=== PATIENT | female | born 1970 | race Caucasian/White ===

== ENCOUNTER 2016-10-04 14:23 | Emergency (ER) | payer BC ==
[~2016-10-04] VITALS: Ht 165.1 cm; Wt 79.0 kg
[~2016-10-04 14:23] MED LIST: ASPI81TA28 PO; CINN1CAP2 PO; CYAN100020 PO; CYCL10TA6 PO; FLUO20CA35 PO; GLIP10TA10 PO; LISI2.5T5 PO; METF1000 PO; MTR800 PO; MULT1TAB22 PO; OMEG10007 PO; REPA1TAB42 PO; ULT50 PO; VTMD PO
[2016-10-04 14:30] VITALS: TEMP 36.7; Ht 165.1 cm; Wt 79.0 kg
[2016-10-04] MEDS ORDERED: FLUO40CA8 PO (15:57)
[2016-10-04] MEDS ORDERED: ONDANSETRON INJ 2 MG/ML 2 ML VIAL IV STA (15:57)
[2016-10-04] MEDS ORDERED: SODIUM CHLORIDE 0.9% 1000ML 2,000 ML IV STA (15:57)
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
--- NOTE | 2016-10-04 16:32 | DIAGNOSTIC IMAGING REPORT ---
CHEST ONE VIEW PORTABLE CLINICAL HISTORY: Chest pain, radiating to the abdomen. COMPARISON STUDY: May 2008 FINDINGS: The cardiac and mediastinal contours are normal. There is no evidence of focal pulmonary consolidation. There is no evidence of failure. No pleural effusions are visualized.[ There is no free intraperitoneal air. IMPRESSION: No active disease in the chest. Electronically signed by: Dorian Graham M.D. 10/04/2016 4:31 PM Dictated Date/Time: 10/04/2016 4:31 PM
[2016-10-04 16:46] LABS: BASO % 0.5 %; BASO ABS # 0.05 K/uL (0-0.2); COMPLETE YES; EOS % 1.6 %; HEMATOCRIT 45.8 % (37-47); IG% 0.2 %; LYMPH % 22.9 %; LYMPH ABS # 2.34 K/uL (1.2-3.4); MEAN CELL VOLUME 88.1 fL (80-100); MEAN CORPUSCULAR HGB CONC 35.2 g/dl (32-36); MEAN PLATELET VOLUME 9.5 fL (7.4-10.4); MONO % 5.4 %; NEUT % 69.4 %; PLATELET COUNT 279 K/uL (130-400)
[2016-10-04 16:54] LABS: VEN BLOOD GAS BASE EXCESS 1.3 mmol/L; VENOUS BLOOD GAS PCO2 44 mmHg (38.0-50.0); VENOUS BLOOD GAS PO2 29 mmHg
[2016-10-04 16:55] LABS: VEN BLD GAS O2 SATURATION < 60.0 %
[2016-10-04 17:22] LABS: BUN/CREATININE RATIO 20.2 (10-20); CALCIUM 9.8 mg/dl (8.5-10.1); CREATININE 0.53 mg/dl (0.60-1.20); MAGNESIUM 1.7 mg/dl (1.8-2.4); POTASSIUM 3.8 mmol/L (3.5-5.1)
[2016-10-04 17:25] LABS: PREG INTERNAL NEGATIVE QC NEG CLEAR BACKGROUND; PREG INTERNAL POSITIVE QC POS CONTROL LINE
[2016-10-04 17:26] LABS: BETA-HYDROXYBUTYRATE 2.51 mg/dL (0.2-2.81)
[2016-10-04 17:43] LABS: URINE APPEARANCE CLEAR (CLEAR); URINE BILIRUBIN NEG (NEG); URINE COLOR YELLOW; URINE NITRITE NEG (NEG); UROBILINOGEN NEG (NEG)
[2016-10-04 17:44] LABS: MANUAL MICROSCOPIC REQUIRED? NO; REVIEW REQ? NO
[2016-10-04 18:51] VITALS: BP 126/79; PULSE 99; O2SAT 99
[2016-10-05 06:37] LABS: ESTIMATED AVERAGE GLUCOSE 309 mg/dl; HA1C FLAG Normal (Normal)
== END 2016-10-04 18:53 | disposition home or self-care (01) ==
LOC: C.EDB 14:24 → C.EDA 18:53
DX: E86.0 Dehydration (principal); R73.9 Hyperglycemia, unspecified; E11.9 Type 2 diabetes mellitus without complications; I10 Essential (primary) hypertension; Z83.3 Family history of diabetes mellitus; Z82.49 Family history of ischemic heart disease and other diseases of the circulatory system; F17.200 Nicotine dependence, unspecified, uncomplicated; Z79.82 Long term (current) use of aspirin

== ENCOUNTER 2016-11-24 22:28 | Emergency (ER) | payer BC ==
[~2016-11-24] VITALS: Ht 165.1 cm; Wt 77.3 kg
[~2016-11-24 22:28] MED LIST changes: -FLUO20CA35 PO; +FLUO40CA8 PO; +REPA1TAB40 PO; -REPA1TAB42 PO
[2016-11-24 22:29] VITALS: TEMP 36.7; Ht 165.1 cm; Wt 77.3 kg
[2016-11-24] MEDS ORDERED: SODIUM CHLORIDE 0.9% 1000ML 1,000 ML IV STA ×2 (22:44)
[2016-11-24 22:53] VITALS: O2SAT 96
[2016-11-24 23:07] LABS: HEMATOCRIT 42.3 % (37-47); RED BLOOD COUNT 4.79 M/uL (4.2-5.4); WHITE BLOOD COUNT 8.32 K/uL (4.8-10.8)
[2016-11-24] MEDS ORDERED: INSDGI SQ (23:07)
[2016-11-24] MEDS ORDERED: ERGO500037 PO (23:07)
[2016-11-24] MEDS ORDERED: INSDGI SC (23:07)
[2016-11-24 23:08] LABS: BASO % 0.5 %; BASO ABS # 0.04 K/uL (0-0.2); COMPLETE YES; EOS % 1.8 %; IG% 0.2 %; LYMPH % 35.7 %; LYMPH ABS # 2.97 K/uL (1.2-3.4); MEAN CELL VOLUME 88.3 fL (80-100); MEAN CORPUSCULAR HEMOGLOBIN 30.9 pg (25-34); MEAN PLATELET VOLUME 9.2 fL (7.4-10.4); MONO % 7.2 %; NEUT % 54.6 %; PLATELET COUNT 261 K/uL (130-400)
[2016-11-24 23:14] LABS: URINE APPEARANCE CLEAR (CLEAR); URINE BILIRUBIN NEG (NEG); URINE COLOR YELLOW; URINE NITRITE NEG (NEG); URINE PH 5.5 (4.5-7.5); URINE SPECIFIC GRAVITY 1.042 (1.000-1.030); UROBILINOGEN NEG (NEG); ZZUR CULT IF INDIC CLEAN CATCH NO
[2016-11-24 23:19] LABS: MANUAL MICROSCOPIC REQUIRED? NO; REVIEW REQ? NO
[2016-11-24 23:49] LABS: ALKALINE PHOSPHATASE 82 U/L (45-117); ALT/SGPT 24 U/L (12-78); AST/SGOT 13 U/L (15-37); BLOOD UREA NITROGEN 14 mg/dl (7-18); CARBON DIOXIDE 24 mmol/L (21-32); CHLORIDE 102 mmol/L (98-107); CREATININE 0.65 mg/dl (0.60-1.20); GLUCOSE 372 mg/dl (70-99); POTASSIUM 3.9 mmol/L (3.5-5.1); SODIUM 136 mmol/L (136-145)
[2016-11-24] MEDS ORDERED: NovoLIN-R INSULIN PER UNIT CHARGE IV STA (23:55)
[2016-11-24 23:59] LABS: BETA-HYDROXYBUTYRATE 2.98 mg/dL (0.2-2.81); CALCIUM 9.5 mg/dl (8.5-10.1)
--- NOTE | 2016-11-25 03:16 | EMERGENCY ROOM VISIT NOTE ---
History First contact with patient: 22:34 Chief Complaint: HYPERGLYCEMIA Stated Complaint: SUGAR IN 300'S, VOMITING, DIZZY Nursing Triage Summary: pt ambulatory to B9. states she has been sick on and off since may with "different infections." reports she was recently on prednisone but has been off for 10 days. states she has type 2 DM and began with insulin approx 2 months ago. states her sugars have been high recently and today reports over 300. states she took her regular 10units of lantus at 09:30 and called pcp and was told to take an extra 5units approx 10:30. pt co feeling shakey and nausea/vomiting and cold. pt alert and oriented x4. lungs clear in all cloud History of Present Illness The patient is a 46 year old female who presents to the Emergency Room with complaints of fatigue, lightheadedness and elevated blood sugars the past few days. She called her family care doctor was advised to go the ER. Patient also hit her head yesterday and had a headache and feeling lightheaded since. Patient denies loss of consciousness, neck pain, facial pain, dental pain, vision problems, flulike illness, chest pain, dyspnea, fever, chills, cough, congestion, abdominal pain, vomiting, diarrhea. Patient states throughout the years she's had intermittent tingling to her extremities. No family history of MS. No visual complaints. Review of Systems See HPI for pertinent positives & negatives. A total of 10 systems reviewed and were otherwise negative. Past Medical/Surgical History Medical Problems: (1) DIAB TIFFANY WO COMPL, TYPE II OR UNSPEC TYPE, NOT UNCNTRLD (2) HYPERTENSION NOS Family History Cancer Diabetes mellitus Heart disease Hypertension Social History Smoking Status: Current Every Day Smoker Alcohol Use: none Drug Use: none Marital Status: single Housing Status: lives alone Occupation Status: employed Current/Historical Medications Scheduled Aspirin (Aspirin Ec), 81 MG PO DAILY Cinnamon (Cinnamon), 1,000 MG PO DAILY Cyanocobalamin (Vitamin B12), 1 TAB PO DAILY Ergocalciferol (Vitamin D 18349 Unit), 50,000 UNIT PO WK Fish Oil ([place]-3), 4 CAP PO DAILY Fluoxetine (Prozac), 40 MG PO HS Insulin Glargine (Lantus), 10 UNITS SC QAM Insulin Glargine (Lantus), 5 UNITS SQ TODAY Lisinopril (Lisinopril), 2.5 MG PO DAILY Metformin Hcl (Glucophage), 1,000 MG PO BIDM Multiple Vitamins W/ Minerals (One Daily For Women), 1 TABLET PO DAILY Repaglinide (Prandin), 1 MG PO QID Scheduled PRN Cyclobenzaprine Hcl (Flexeril), 10 MG PO HS PRN for Muscle Spasm Ibuprofen (Ibuprofen), 800 MG PO Q8 PRN for Pain Tramadol HCl (Tramadol HCl), 50-100 MG PO Q6H PRN for Pain Allergies Coded Allergies: Penicillins (Unverified Allergy, Intermediate, RASH, 11/24/16) BEE STING (Unverified Allergy, Unknown, swelling and difficulty breathing , 11/24/16) Physical Exam Vital Signs Date Time Temp Pulse Resp B/P Pulse Ox O2 Delivery O2 Flow Rate FiO2 11/25/16 02:50 83 18 103/58 95 Room Air 11/25/16 00:56 89 18 106/72 96 Room Air 11/24/16 23:50 80 18 113/73 93 Room Air 11/24/16 23:02 89 11/24/16 22:53 96 Room Air 11/24/16 22:53 96 Room Air 11/24/16 22:29 36.7 99 18 125/82 99 Room Air Physical Exam VITALS: Vitals are noted on the nurse's note and reviewed by myself. Vital signs stable. GENERAL: Pleasant female, in no acute distress, nondiaphoretic, well-developed well-nourished. SKIN: The skin was without rashes, erythema, edema, or bruising. There is no tenting of the skin. Capillary reflex less than 2 seconds. HEAD: Normocephalic atraumatic. EARS: External auditory canals clear, tympanic membranes pearly brown without erythema or effusion bilaterally. EYES: Pupils equal round and reactive to light and accommodation. Conjunctivae without injection, sclerae without icterus. Extraocular movements intact. NOSE: Patent, turbinates without inflammation or discharge. MOUTH: Mucous membranes moist. Pharynx without erythema or exudate. Uvula midline. Airway patent. Tongue does not deviate. NECK: Supple without nuchal rigidity. No lymphadenopathy. No thyromegaly. Cervical spine is nontender. No JVD. HEART: Regular rate and rhythm without murmurs gallops or rubs. LUNGS: Clear to auscultation bilaterally without wheezes, rales or rhonchi. No dullness to percussion. No retractions or accessory muscle use. ABDOMEN: Positive bowel sounds x 4. Normal tympanic percussion. Soft, nontender, without masses or organomegaly. Rivera sign negative. No guarding or rebound tenderness. MUSCULOSKELETAL: No muscle atrophy, erythema, or edema noted. NEURO: Patient was alert and oriented to person place and time. Normal sensation to light and sharp touch. No focal neurological deficits. Cranial nerves II through XII grossly intact. No pronator drift. Cerebellar exam intact. GCS is 15 Medical Decision & Procedures Laboratory Results 11/24/16 22:55 Red Blood Count 4.79, Mean Corpuscular Volume 88.3, Mean Corpuscular Hemoglobin 30.9, Mean Corpuscular Hemoglobin Concent 35.0, Mean Platelet Volume 9.2, Neutrophils (%) (Auto) 54.6, Lymphocytes (%) (Auto) 35.7, Monocytes (%) (Auto) 7.2, Eosinophils (%) (Auto) 1.8, Basophils (%) (Auto) 0.5, Neutrophils # (Auto) 4.54, Lymphocytes # (Auto) 2.97, Monocytes # (Auto) 0.60, Eosinophils # (Auto) 0.15, Basophils # (Auto) 0.04 11/24/16 22:55 Test 11/24/16 22:54 11/24/16 22:55 11/24/16 22:59 11/25/16 00:41 Urine Color YELLOW Urine Appearance CLEAR (CLEAR) Urine pH 5.5 (4.5-7.5) Urine Specific [place] 1.042 (1.000-1.030) Urine Protein NEG (NEG) Urine Glucose (UA) 3+ (NEG) Urine Ketones TRACE (NEG) Urine Occult Blood NEG (NEG) Urine Nitrite NEG (NEG) Urine Bilirubin NEG (NEG) Urine Urobilinogen NEG (NEG) Urine Leukocyte Esterase NEG (NEG) White Blood Count 8.32 K/uL (4.8-10.8) Red Blood Count 4.79 M/uL (4.2-5.4) Hemoglobin 14.8 g/dL (12.0-16.0) Hematocrit 42.3 % (37-47) Mean Corpuscular Volume 88.3 fL (80-100) Mean Corpuscular Hemoglobin 30.9 pg (25-34) Mean Corpuscular Hemoglobin Concent 35.0 g/dl (32-36) Platelet Count 261 K/uL (130-400) Mean Platelet Volume 9.2 fL (7.4-10.4) Neutrophils (%) (Auto) 54.6 % Lymphocytes (%) (Auto) 35.7 % Monocytes (%) (Auto) 7.2 % Eosinophils (%) (Auto) 1.8 % Basophils (%) (Auto) 0.5 % Neutrophils # (Auto) 4.54 K/uL (1.4-6.5) Lymphocytes # (Auto) 2.97 K/uL (1.2-3.4) Monocytes # (Auto) 0.60 K/uL (0.11-0.59) Eosinophils # (Auto) 0.15 K/uL (0-0.5) Basophils # (Auto) 0.04 K/uL (0-0.2) RDW Standard Deviation 40.3 fL (36.4-46.3) RDW Coefficient of Variation 12.5 % (11.5-14.5) Immature Granulocyte % (Auto) 0.2 % Immature Granulocyte # (Auto) 0.02 K/uL (0.00-0.02) Anion Gap 10.0 mmol/L (3-11) Est Creatinine Clear Calc Drug Dose 110.0 ml/min Estimated GFR () 122.5 Estimated GFR (Non- 105.7 BUN/Creatinine Ratio 22.0 (10-20) Calcium Level 9.5 mg/dl (8.5-10.1) Total Bilirubin 0.3 mg/dl (0.2-1) Direct Bilirubin mg/dl (0-0.2) Aspartate Amino Transf (AST/SGOT) 13 U/L (15-37) Alanine Aminotransferase (ALT/SGPT) 24 U/L (12-78) Alkaline Phosphatase 82 U/L (45-117) Total Protein 7.0 gm/dl (6.4-8.2) Albumin 3.8 gm/dl (3.4-5.0) Beta-Hydroxybutyric Acid 2.98 mg/dL (0.2-2.81) Chemistry Specimen Hemolysis Bedside Troponin I 0.000 ng/ml (0-0.045) Bedside Glucose 206 mg/dl (70-90) Medications Administered Medications (Trade) Dose Ordered Sig/Remberto Route Start Time Stop Time Status Last Admin Dose Admin Sodium Chloride 1,000 ml @ 999 mls/hr Q1H1M STAT IV 11/24/16 22:44 11/24/16 23:44 DC 11/24/16 23:00 999 MLS/HR Sodium Chloride (Nss 1000ml) 1,000 ml @ 125 mls/hr Q8H STAT IV 11/24/16 22:44 11/25/16 06:43 11/24/16 23:50 125 MLS/HR Insulin Human Regular (novoLIN-R U-100 PER UNIT) 10 units NOW STAT IV 11/24/16 23:55 11/24/16 23:56 DC 11/25/16 00:08 10 UNITS ED Course Prior records/ancillary studies reviewed and summarized above. Nursing notes reviewed. Additional history obtained from family. The patient's history was concerning for hyperglycemia, tingling, lightheadedness, dizziness and headache injury. Differential diagnosis: Etiologies such as metabolic, infection, MS, hypo/hyperglycemia, electrolyte abnormalities, cardiac sources, intracerebral event, toxicologic, neurologic, as well as others were entertained. Physical examination: As above. ER treatment provided: IV Lock IV fluids, insulin On reassessment the patient felt better. Diagnostics interpretation by me: ECG: Normal sinus, normal intervals, no acute ST-T wave changes. Impression normal sinus rhythm interpreted by myself The labs revealed hyperglycemia without DKA. Negative troponin Imaging studies: Chest x-ray with no acute consolidation, pneumothorax or free air per my interpretation Head CT was read by stat radiology and shows remote-appearing right frontoparietal infarct, patchy nonspecific white matter low attenuation MRI HEAD : No evidence of acute infarct. Right parietal encephalomalacia and gliosis, compatible with remote infarct. Cortical T2/FLAIR hyperintensity abnormality at the posterior aspect of the right sylvian fissure , also likely related to remote infarct Mild scattered T2/FLAIR white matter hyperintensities, nonspecific but most commonly related to chronic small vessel ischemic changes. No evidence of intracranial hemorrhage or mass. No abnormal parenchymal or leptomeningeal enhancement. Mild mucosal thickening left frontal sinus, ethmoid air cells, and right maxillary sinus Radiologist: Kofi Cadena MD Exam and history seem consistent with hyperglycemia without DKA with head injury and intermittent tingling. Patient has had a history of remote infarct and is unaware of this. Patient's blood sugar did come down after being medicated as above. She is advised to monitor her blood sugars and to follow- up family care in a few days or here in the ER sooner for high blood sugars, chest pain, confusion, weakness, worsening signs or symptoms or as needed. Patient was neurovascularly and neurologically intact. No sources of infection to explain her hyperglycemia. She was recently no on prednisone. This could be the contributing factor. By the evaluation outlined above emergent etiologies such as infection, electrolyte abnormalities, cardiac sources, intracerebral event, toxologic, neurologic, metabolic, as well as others were deemed relatively unlikely. The pt informed about the findings as listed above. All questions were answered and pleased with the treatment. Return instructions were outlined and the patient was discharged in stable condition. Referral: The patient was referred back to primary care physician for follow-up in 2 to 3 days for a recheck of the current condition. case reviewed with my Attending Medical Decision As above Impression Primary Impression: Hyperglycemia due to type 2 diabetes mellitus Additional Impressions: Head injury Tingling Lightheadedness Departure Information Dispostion Home / Self-Care Condition GOOD Referrals Corina Yusuf D.O. (PCP) Patient Instructions My [facility] Additional Instructions Read head injury handout and return for any symptoms. Tylenol 1000 mg as needed for pain (Maximum 3000 mg Tylenol in 24 hr period). Avoid alcohol and contact sports/activities for one week and follow up with family doctor prior to returning to these activities if still symptomatic. Ice and elevate head. If your symptoms persist more than a week then follow up with the concussion clinic. Call [phone]. Return to ER sooner for headache, fevers, confusion, chest pain, abdominal pain , worsening signs or symptoms or as needed. Monitor your blood sugars. It was high today. Follow-up family care in 2-3 days. Call for appointment. 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
[2016-11-25 03:39] VITALS: BP 110/58; PULSE 82; O2SAT 96
[2016-11-25] MEDS ORDERED: GADAVIST IV PRN (03:45)
--- NOTE | 2016-11-25 06:26 | DIAGNOSTIC IMAGING REPORT ---
CT HEAD WITHOUT CONTRAST (CT) CLINICAL HISTORY: Dizziness. Head trauma. COMPARISON STUDY: 05/17/2013 TECHNIQUE: Axial CT of the brain is performed from the vertex to the skull base. IV contrast was not administered for this examination. CT DOSE: 537.48 mGy.cm FINDINGS: No intra or extra-axial mass lesions are visualized. There is no CT evidence of acute cortical infarction. There is no evidence of midline shift. There is no acute hemorrhage. No calvarial fractures are visualized. Since the prior study, the patient has developed a right frontoparietal infarct. This does not appear acute. There are subtle white matter hypodensities, likely on a small vessel basis. There is no evidence of pathologic ventricular dilatation. There is no evidence of acute sinusitis IMPRESSION: 1. No acute intracranial findings 2. Interval development of a right frontoparietal infarct Electronically signed by: Dorian Graham M.D. 11/25/2016 6:25 AM Dictated Date/Time: 11/25/2016 6:23 AM
--- NOTE | 2016-11-25 06:36 | DIAGNOSTIC IMAGING REPORT ---
CHEST ONE VIEW PORTABLE CLINICAL HISTORY: Atypical chest pain COMPARISON STUDY: 10/04/2016 FINDINGS: The cardiac and mediastinal contours are normal. There is no evidence of focal pulmonary consolidation. There is no evidence of failure. No pleural effusions are visualized.[ IMPRESSION: No active disease in the chest. Electronically signed by: Dorian Graham M.D. 11/25/2016 6:35 AM Dictated Date/Time: 11/25/2016 6:35 AM
--- NOTE | 2016-11-25 06:44 | DIAGNOSTIC IMAGING REPORT ---
Brain MRI WITH AND WITHOUT CONTRAST HISTORY: Mental status change dizzy, [place], abn CT, intermittent numbness to extremities, ? MS TECHNIQUE: Multiplanar multisequence MRI of the brain was performed both before and after the intravenous administration of contrast. COMPARISON STUDY: None. FINDINGS: There are no areas of restricted diffusion to suggest acute infarction. The midline structures are intact. The paranasal sinuses are clear. The mastoid air cells are clear. The ventricles and sulci are within normal limits for age. There is no mass, hematoma, midline shift. The major vascular flow-voids at the skull base are well maintained. Postcontrast sequences show no areas of abnormal enhancement. Old right parietal infarct. Minimal chronic small vessel change. IMPRESSION: 1. Old right parietal infarct. 2. Minimal chronic small vessel change. 3. Otherwise negative study Electronically signed by: Mikael Apple M.D. 11/25/2016 6:43 AM Dictated Date/Time: 11/25/2016 6:41 AM
== END 2016-11-25 03:39 | disposition home or self-care (01) ==
LOC: C.EDB 22:29
DX: E11.65 Type 2 diabetes mellitus with hyperglycemia (principal); S09.90XA Unspecified injury of head, initial encounter; W22.8XXA Striking against or struck by other objects, initial encounter; R20.2 Paresthesia of skin; R42 Dizziness and giddiness; I10 Essential (primary) hypertension; F17.200 Nicotine dependence, unspecified, uncomplicated; Z79.82 Long term (current) use of aspirin; Z79.4 Long term (current) use of insulin; Z79.899 Other long term (current) drug therapy; Z88.0 Allergy status to penicillin; Z91.030 Bee allergy status; Z80.9 Family history of malignant neoplasm, unspecified; Z83.3 Family history of diabetes mellitus; Z82.49 Family history of ischemic heart disease and other diseases of the circulatory system

== ENCOUNTER 2019-01-13 22:24 | Inpatient (IN) ==
[2019-01-13 23:08] LABS: Basophils # (auto) 0.05 K/uL (0-0.2); Basophils % (auto) 0.5 %; Hematocrit (blood only) 41.7 % (37-47); Hemoglobin 14.6 g/dL (12.0-16.0); Immature Granulocytes # (auto) 0.01 K/uL (0.00-0.02); Immature Granulocytes % (auto) 0.1 %; Lymphocytes # (auto) 3.15 K/uL (1.2-3.4); Lymphocytes % (auto) 32.2 %; Mean Corpuscular Volume 87.8 fL (80-100); Mean Platelet Volume 9.6 fL (7.4-10.4); Monocytes # (auto) 0.63 K/uL (0.11-0.59); Monocytes % (auto) 6.4 %; Neutrophils # (auto) 5.75 K/uL (1.4-6.5); Neutrophils % (auto) 58.8 %; Platelet Count 279 K/uL (130-400); RDW Standard Deviation 38.4 fL (36.4-46.3); Red Blood Count 4.75 M/uL (4.2-5.4); White Blood Count 9.79 K/uL (4.8-10.8)
[2019-01-13 23:11] LABS: Pregnancy Test, Serum Negative (Negative)
[2019-01-13 23:41] LABS: D Dimer 620 ug/L FEU (0-500)
[2019-01-13 23:56] LABS: Alanine Aminotransferase 26 U/L (12-78); Albumin Globulin Ratio 1.1 (0.9-2); Albumin Level 3.7 gm/dl (3.4-5.0); Alkaline Phosphatase 91 U/L (45-117); Aspartate Aminotransferase 9 U/L (15-37); BUN Creatinine Ratio 18.5 (10-20); Bilirubin,Total 0.3 mg/dl (0.2-1); Blood Urea Nitrogen 14 mg/dl (7-18); Calcium 9.1 mg/dl (8.5-10.1); Carbon Dioxide 28 mmol/L (21-32); Chloride 102 mmol/L (98-107); Creatinine Clr Calc Pharmacy 95.3 ml/min; Est GFR (African American) 106.8; Est GFR (Non-African American) 92.1; Globulin 3.5 gm/dl (2.5-4.0); Glucose 473 mg/dl (70-99); Potassium 3.9 mmol/L (3.5-5.1); Sodium 136 mmol/L (136-145); Total Protein 7.2 gm/dl (6.4-8.2); Troponin I < 0.015 ng/ml (0-0.045)
[2019-01-14 00:32] LABS: Beta-Hydroxybutyrate 1.48 mg/dl (0.2-2.81)
[2019-01-14] MEDS ORDERED: NovoLIN-R INSULIN PER UNIT CHARGE IV STA (00:39)
[2019-01-14] MEDS ORDERED: SODIUM CHLORIDE 0.9% 1000ML 500 ML IV ONE (00:39)
[2019-01-14] MEDS ORDERED: OPTIRAY 320 125ml IV PRN (00:40)
[2019-01-14] MEDS ORDERED: ASPIRIN CHEW 324 MG PO STA (01:48)
--- NOTE | 2019-01-14 03:35 | Emergency Department Note ---
Entered by Serina Khan acting as a scribe for Filiberto Holt MD ED Provider Note CHIEF COMPLAINT: Chest pain HISTORY OF PRESENT ILLNESS: The patient is a 48 year old female who presents to the Emergency Room with complaints of constant chest pain that started 4 days ago. The patient reports she started noticing back and chest pain 4 days ago. She notes she was walking through [facility] today with her and had to stop because she could not breathe. The patient [facility] but currently rates it as 1. Pt denies LOC, headache, fevers, chills, diaphoresis, visual changes, neck pain, breathing difficulties, nausea, vomiting, abdominal pain, melena, hematochezia, urinary symptoms, numbness, weakness, lymphadenopathy, rash, or other complaints. REVIEW OF SYSTEMS: See HPI for pertinent positives and negatives. A total of ten systems were reviewed and were otherwise negative. PMHx/PSHx: Cardiomyopathy Cerebrovascular disease CVA Smoker Hyperlipidemia Elevated troponin SOCIAL HISTORY: Patient lives at home. PHYSICAL EXAM: GENERAL: Awake, alert, well-appearing, in no distress HENT: Normocephalic, atraumatic. Oropharynx unremarkable. EYES: PERRL. Normal conjunctiva. Sclera non-icteric. NECK: Inspection normal. Non-tender. Supple. No nuchal rigidity. FROM. No masses. RESPIRATORY: Clear to auscultation. No wheezes. No rales. Normal respiratory effort. CARDIAC: Borderline tachycardic rate. Normal rhythm. No murmurs. No rubs. Extremities warm and well perfused. Pulses equal. No JVD. GI: Soft, non-distended. No tenderness to palpation. No rebound or guarding. No masses. RECTAL: Deferred. MUSCULOSKELETAL: Atraumatic. Chest examination reveals mild sternal tenderness. The back is symmetrical on inspection without obvious abnormality. There is no CVA tenderness to palpation. No joint edema. LOWER EXTREMITIES: Calves are equal size bilaterally and non-tender. No edema. No discoloration. NEURO: Normal sensorium. No sensory or motor deficits noted. SKIN: No rash or jaundice noted. EMERGENCY DEPARTMENT COURSE: 2355: Past medical records reviewed. The patient was evaluated in room B7, and a complete history and physical examination were performed. 0133: I checked on the patient. The patient is stable and is doing well. Her blood sugar is 284. I will discuss the patient's case with Dr. Butts about chest pain rule out. 0154: I discussed the patients case with Beckie. The patient is admitted. MEDICAL DECISION MAKING: Prior records/ancillary studies reviewed. Patient had prior elevations of troponin. She has diagnosis of diabetes and a cardiomyopathy. Triage Nursing notes reviewed and agree them. The patient's history was concerning for chest pain. Differential diagnosis: Etiologies such as cardiac ischemia, aortic dissection, pulmonary embolism, pneumonia, pneumothorax, musculoskeletal, infections, pericarditis, myocarditis, esophageal rupture, gastrointestinal, as well as others were entertained. Physical examination: As above. ER treatment provided: Saline hydration IV insulin Patient declined analgesia as she noted her discomfort was a 1. On reassessment the patient felt better. Oral aspirin Diagnostic interpretation by me: The electrocardiogram was negative for pathologic change. The labs revealed an unremarkable CBC and chemistry panel. LFTs and lipase negative. D-dimer was performed and was positive. CT imaging performed. Troponin negative. Imaging studies: CT scan of the chest did not reveal any acute findings. Chest x-ray negative. The patient has had chest pain fluctuating for the last 3 days. She had significant chest pain this evening that actually caused her to stop her activi ty. She was short of breath with it. She does not have any evidence of thromboembolic disease. She had a previous admission last fall that discovered an elevated troponin and decreased EF. She was presumed to have coronary disease. She did not have a catheterization. Consultation: A consultation was placed with the hospitalist. The case was discussed and diagnostics were reviewed. The patient was evaluated in the ER for further treatment. IMPRESSION: Substernal chest pain Hyperglycemia PLAN: Admit The scribe's documentation has been prepared under my direction and personally reviewed by me in its entirety. I confirm that the note above accurately reflects all work, treatment, procedures, and medical decision making performed by me. Impression & Plan Substernal chest pain, Hyperglycemia Past Med/Surg History Medical History Cardiomyopathy Cerebrovascular disease CVA (cerebral vascular accident) Smoker Hyperlipidemia Hyperglycemia due to type 2 diabetes mellitus (Acute) Elevated troponin (Acute) Work related injury (Acute) Weakness of both arms (Acute) Concussion (Acute) Diabetes Family History Other Diabetes Social History Preferred Language: Pashto Communication Ability: Effective Beliefs That Will Affect Care: None Current Living Situation: Family Current Living Situation Comment: WITH SON Feels Safe at Home: Yes Smoking Status: Current every day smoker Tobacco Type: cigarettes Cigarettes Per Day: 8-9 Hx Alcohol Use: No Hx Substance Use: No Results & Data Vital Signs Vital Signs - 24 hr 01/13/19 22:27 01/13/19 22:45 01/13/19 22:56 Temperature 36.4 C L Temperature Source Oral Sepsis Recent Fever Within 48 Hours No Sepsis New/Unexplained Change in Mental Status No Sepsis Action Taken by Nursing No Action Required Pulse Rate 107 H 101 H 102 H Pulse Rate from SpO2 Sensor 101 H 100 H Respiratory Rate 24 21 20 Blood Pressure 137/84 136/79 Blood Pressure Mean 101 98 Blood Pressure Position Sitting Pulse Oximetry 99 96 95 Oxygen Delivery Method Room Air 01/13/19 23:00 01/13/19 23:55 01/14/19 00:35 Temperature Temperature Source Sepsis Recent Fever Within 48 Hours Sepsis New/Unexplained Change in Mental Status Sepsis Action Taken by Nursing Pulse Rate 101 H 96 H Pulse Rate from SpO2 Sensor 99 H 103 H Respiratory Rate 21 15 Blood Pressure Blood Pressure Mean Blood Pressure Position Pulse Oximetry 95 96 Oxygen Delivery Method 01/14/19 00:36 01/14/19 01:00 01/14/19 01:30 Temperature Temperature Source Sepsis Recent Fever Within 48 Hours Sepsis New/Unexplained Change in Mental Status Sepsis Action Taken by Nursing Pulse Rate 99 H 89 96 H Pulse Rate from SpO2 Sensor 96 H 89 Respiratory Rate 20 18 21 Blood Pressure 117/77 106/80 Blood Pressure Mean 90 88 Blood Pressure Position Pulse Oximetry 96 96 Oxygen Delivery Method 01/14/19 02:00 01/14/19 02:04 01/14/19 02:30 Temperature Temperature Source Sepsis Recent Fever Within 48 Hours Sepsis New/Unexplained Change in Mental Status Sepsis Action Taken by Nursing Pulse Rate 95 H 98 H 103 H Pulse Rate from SpO2 Sensor 94 H 105 H Respiratory Rate 19 24 18 Blood Pressure 116/64 Blood Pressure Mean 81 Blood Pressure Position Pulse Oximetry 96 94 Oxygen Delivery Method 01/14/19 02:31 Temperature Temperature Source Sepsis Recent Fever Within 48 Hours Sepsis New/Unexplained Change in Mental Status Sepsis Action Taken by Nursing Pulse Rate 96 H Pulse Rate from SpO2 Sensor 95 H Respiratory Rate 18 Blood Pressure 134/104 H Blood Pressure Mean 114 Blood Pressure Position Pulse Oximetry 95 Oxygen Delivery Method Home Medications Current Medication List: was personally reviewed by me Laboratory Data Attestation: I reviewed the patient's lab results. Result diagrams: 01/13/19 22:45 01/13/19 22:45 Lab Results 01/13/19 01/13/19 01/13/19 Range/Units 22:45 22:45 22:45 WBC 9.79 (4.8-10.8) K/uL RBC 4.75 (4.2-5.4) M/uL Hgb 14.6 (12.0-16.0) g/dL Hct 41.7 (37-47) % MCV 87.8 (80-100) fL MCH 30.7 (25-34) pg MCHC 35.0 (32-36) g/dL RDW Std Deviation 38.4 (36.4-46.3) fL RDW Coeff of Brea 12.0 (11.5-14.5) % Plt Count 279 (130-400) K/uL MPV 9.6 (7.4-10.4) fL Immature Gran % (Auto) 0.1 % Neut % (Auto) 58.8 % Lymph % (Auto) 32.2 % Howard % (Auto) 6.4 % Eos % (Auto) 2.0 % Baso % (Auto) 0.5 % Immature Gran # (Auto) 0.01 (0.00-0.02) K/uL Neut # (Auto) 5.75 (1.4-6.5) K/uL Lymph # (Auto) 3.15 (1.2-3.4) K/uL Howard # (Auto) 0.63 H (0.11-0.59) K/uL Eos # (Auto) 0.20 (0-0.5) K/uL Baso # (Auto) 0.05 (0-0.2) K/uL D-Dimer 620 H* (0-500) ug/L FEU Sodium 136 (136-145) mmol/L Potassium 3.9 (3.5-5.1) mmol/L Chloride 102 (98-107) mmol/L Carbon Dioxide 28 (21-32) mmol/L Anion Gap 6.0 (3-11) BUN 14 (7-18) mg/dl Creatinine 0.76 (0.6-1.2) mg/dl Est Cr Clr Drug Dosing 95.3 ml/min Est GFR ( Amer) 106.8 Est GFR (Non-Af Amer) 92.1 BUN/Creatinine Ratio 18.5 (10-20) Glucose 473 H* (70-99) mg/dl POC Glucose (70-99) Calcium 9.1 (8.5-10.1) mg/dl Total Bilirubin 0.3 (0.2-1) mg/dl AST 9 L (15-37) U/L ALT 26 (12-78) U/L Alkaline Phosphatase 91 (45-117) U/L Troponin I < 0.015 (0-0.045) ng/ml Total Protein 7.2 (6.4-8.2) gm/dl Albumin 3.7 (3.4-5.0) gm/dl Globulin 3.5 (2.5-4.0) gm/dl Albumin/Globulin Ratio 1.1 (0.9-2) Lipase 89 (73-393) U/L Beta-Hydroxybutyric Acd 1.48 (0.2-2.81) mg/dl HCG, Qual (Negative) 01/13/19 01/14/19 Range/Units 22:45 01:43 WBC (4.8-10.8) K/uL RBC (4.2-5.4) M/uL Hgb (12.0-16.0) g/dL Hct (37-47) % MCV (80-100) fL MCH (25-34) pg MCHC (32-36) g/dL RDW Std Deviation (36.4-46.3) fL RDW Coeff of Brea (11.5-14.5) % Plt Count (130-400) K/uL MPV (7.4-10.4) fL Immature Gran % (Auto) % Neut % (Auto) % Lymph % (Auto) % Howard % (Auto) % Eos % (Auto) % Baso % (Auto) % Immature Gran # (Auto) (0.00-0.02) K/uL Neut # (Auto) (1.4-6.5) K/uL Lymph # (Auto) (1.2-3.4) K/uL Howard # (Auto) (0.11-0.59) K/uL Eos # (Auto) (0-0.5) K/uL Baso # (Auto) (0-0.2) K/uL D-Dimer (0-500) ug/L FEU Sodium (136-145) mmol/L Potassium (3.5-5.1) mmol/L Chloride (98-107) mmol/L Carbon Dioxide (21-32) mmol/L Anion Gap (3-11) BUN (7-18) mg/dl Creatinine (0.6-1.2) mg/dl Est Cr Clr Drug Dosing ml/min Est GFR ( Amer) Est GFR (Non-Af Amer) BUN/Creatinine Ratio (10-20) Glucose (70-99) mg/dl POC Glucose 284 H (70-99) Calcium (8.5-10.1) mg/dl Total Bilirubin (0.2-1) mg/dl AST (15-37) U/L ALT (12-78) U/L Alkaline Phosphatase (45-117) U/L Troponin I (0-0.045) ng/ml Total Protein (6.4-8.2) gm/dl Albumin (3.4-5.0) gm/dl Globulin (2.5-4.0) gm/dl Albumin/Globulin Ratio (0.9-2) Lipase (73-393) U/L Beta-Hydroxybutyric Acd (0.2-2.81) mg/dl HCG, Qual Negative (Negative) Administered Medications Ioversol (Optiray 320 125ml) 125 ml IV ONCE PRN PRN Reason: Interaction Checking Stop: 01/18/19 00:39 Last Admin: 01/14/19 00:40 Dose: 82 ml Documented by: [id number] Discontinued Medications Aspirin (Aspirin) 324 mg PO NOW STA Stop: 01/14/19 01:49 Last Admin: 01/14/19 02:04 Dose: 324 mg Documented by: [id number] Sodium Chloride (Nss 1000ml) 500 mls @ 999 mls/hr IV .Q31M ONE Stop: 01/14/19 01:09 Last Infusion: 01/14/19 01:45 Dose: 0 mls/hr Documented by: [id number] Admin: 01/14/19 00:55 Dose: 999 mls/hr Documented by: [id number] Insulin Human Regular (Novolin R U-100 Per Unit) 10 units IV NOW STA Stop: 01/14/19 00:40 Last Admin: 01/14/19 00:54 Dose: 10 units Documented by: [id number] Cosigned by: [id number] Imaging Data Radiologist's Impression: Radiology results as stated below per my review and the radiologist's interpretation: CTA CHEST: No evidence of pulmonary emboli. No arotic dissection or aneurysm. Scattered coronary artery calcifications. Linear streaky opacity in the right middle lobe and lingula probably represent scarring or atelectasis. No pleural effusion or pneumothorax. 4 mm subpleural nodule in the right middle lobe is nonspecific. Recommend correlation with risk factors and previous studies and consider follow-up based on Fleischner criteria. Hypodense nodule measuring 2.3 cm in the left adrenal gland probably represents a lipid rich adrenal adenoma. Radiologist: Shaan Enriquez MD Study ready at 00:30 and initiral results transmitted at 01:09 ECG Data Attestation: I personally reviewed and interpreted this ECG as follows: Indication: chest pain Rate (beats per minute): 105 Rhythm: sinus tachycardia Findings: no PAC, no PVC, no ST depression and no ST elevation Blood Pressure Blood Pressure Findings: Normal blood pressure Blood Pressure Disposition: did not require urgent referral Discharge Plan Visit Data Chief Complaint: Chest Pain Stated Complaint: CHEST PAIN ED Provider: Filiberto Holt Discharge Problem: Substernal chest pain, Hyperglycemia Patient Disposition: Being Evaluated by Hospitalist Forms Stand Alone Forms: Call Back Authorization, [facility] Prescriptions Prescriptions: No Action ibuprofen 200 mg Tablet 1,000 mg PO Q6H PRN (Reason: Pain) RF: 0 ergocalciferol (vitamin D2) [Vitamin D2] 50,000 unit capsule 50,000 unit PO WK RF: 0 aspirin [Aspir-81] 81 mg Tablet,Delayed Release (Dr/Ec) 81 mg PO QAM RF: 0 metformin 1,000 mg Tablet 1,000 mg PO BIDM RF: 0 cinnamon bark [Cinnamon] 500 mg Capsule 1,000 mg PO QAM RF: 0 One Daily For Women 18-0.4 mg Tablet 1 tab PO DAILY RF: 0 omega [id number]-fish oil [Fish Oil] 1,000 mg (120 mg-180 mg) Capsule 1,000 mg PO DAILY RF: 0 atorvastatin 40 mg Tablet 40 mg PO QAM Qty: 30 RF: 2 lisinopril 2.5 mg Tablet 2.5 mg PO QAM Qty: 30 RF: 1 metoprolol tartrate 25 mg Tablet 25 mg PO BID Qty: 60 RF: 1 Lantus Solostar U-100 Insulin 100 unit/mL (3 mL) Insulin Pen 40 unit SC DAILY Qty: 1 RF: 2 Referrals Referrals: Marisela Bonilla, [Primary Care Provider] - The scribe's documentation has been prepared under my direction and personally reviewed by me in its entirety. I confirm that the note above accurately reflects all work, treatment, procedures, and medical decision making performed by me.
[2019-01-14] MEDS ORDERED: ACETAMINOPHEN 325 MG TAB PO PRN (04:47)
[2019-01-14] MEDS ORDERED: ONDANSETRON INJ 2 MG/ML 2 ML VIAL IV PRN (04:47)
[2019-01-14] MEDS ORDERED: NITROGLYCERIN SL 0.4 MG/TAB TAB SL PRN (04:47)
[2019-01-14] MEDS: SODIUM CHLORIDE 0.9% 1000ML 1,000 ML IV SCH ×2 (04:54→16:09)
[2019-01-14] MEDS ORDERED: PHARMACY GLYCEMIC MGMT CONSULT PRN (04:55)
[2019-01-14] MEDS ORDERED: DEXTROSE 50% 50 ML SYRINGE IV PRN (05:30)
[2019-01-14] MEDS ORDERED: GLUCOSE 40% GEL 15 GM TUBE PO PRN (05:30)
[2019-01-14] MEDS ORDERED: GLUCAGON FOR INJ 1 MG VIAL IM PRN (05:30)
[2019-01-14] MEDS ORDERED: CARBOHYDRATES FOR HYPOGLYCEMIA PO PRN (05:30)
[2019-01-14] MEDS ORDERED: GLUCOSE 10 TABS/TUBE PO PRN (05:30)
[2019-01-14] MEDS: INSULIN ASPART 100 UNITS/ML 3 ML PEN SC SCH ×4 (05:49→20:58)
--- NOTE | 2019-01-14 06:32 | XRay Report ---
XR chest 1V portable HISTORY: 48 years-old Female Chest Pain acute atypical chest pain COMPARISON: Chest radiograph 05/10/2018, CTA chest 01/14/2019 TECHNIQUE: Portable AP view of the chest FINDINGS: Cardiomediastinal and hilar silhouettes are within normal limits. There is no pneumothorax, pleural e ffusion, lobar airspace consolidation or overt pulmonary edema. Minimal linear subsegmental bibasilar atelectasis. Bones of the chest appear grossly intact. IMPRESSION: No acute process. The above report was generated using voice recognition software. It may contain grammatical, syntax o r spelling errors. Electronically signed by: Michael Gutierrez M.D. 01/14/2019 6:30 AM
[2019-01-14] MEDS ORDERED: INSULIN ASPART 100 UNITS/ML 3 ML PEN SC ONE (06:45)
[2019-01-14 07:38] LABS: BUN Creatinine Ratio 22.2 (10-20); Calcium 8.6 mg/dl (8.5-10.1); Creatinine Clr Calc Pharmacy 138.1 ml/min; Est GFR (African American) 131.7; Est GFR (Non-African American) 113.7; Magnesium 1.6 mg/dl (1.8-2.4); Potassium 3.6 mmol/L (3.5-5.1); Troponin I 0.114 ng/ml (0-0.045)
[2019-01-14 07:52] LABS: Beta-Hydroxybutyrate 1.09 mg/dl (0.2-2.81)
--- NOTE | 2019-01-14 08:10 | CT Scan Report ---
CHEST CTA for PULMONARY ARTERIES CT DOSE: 500.46 mGy.cm HISTORY: Atypical chest pain, eval for PE, +dimer TECHNIQUE: Multiaxial CT images of the chest were performed following the intravenous administration of contrast to evaluate the pulmonary arteries. Maximal intensity projection images were also obtaine d. A dose lowering technique was utilized adhering to the principles of ALARA. COMPARISON STUDY: Chest 01/13/2019. FINDINGS: There is 2 cm left adrenal gland nodule. This favors a benign adenoma. The visualized liver and spleen are unremarkable. There is a 2 cm left thyroid nodule. Normal esophagus. No mediastinal o r hilar lymphadenopathy. The heart is normal in size. No pleural or pericardial effusions. No fractur es within the visualized osseous structures. No pneumothorax. The central airways are patent. Linear densities within the right upper lobe and lingula favor subsegmental atelectasis or scarring. There i s a 4 mm subpleural nodule within the right middle lobe on image 93. Normal caliber thoracic aorta wi th no evidence for dissection. No filling defects within the pulmonary arteries to suggest pulmonary embolus. IMPRESSION: 1. No evidence for pulmonary embolus. 2. A 4 mm subpleural nodule within the right middle lobe. Please refer to the chart below for recomme nded follow-up. 3. A 2 cm left adrenal gland nodule which is consistent with a benign adenoma. 3. A 2 cm left thyroid nodule. Please refer to below summary of Fleischner criteria recommendations for follow-up of incidental CT n odules (Campos Guerrero, Guidelines for management of small pulmonary nodules detected on CT scans: A sta tement from the Fleischner Society, Radiology 237: [phone].) SOLID NODULES Solitary nodule size: <6 mm * Low risk patients: no follow-up needed * high risk patients: optional CT at 12 months Solitary nodule size: 6-8 mm * Low risk patients: follow-up at 6-12 months, then consider further follow-up at 18-24 months * high risk patients: initial follow-up CT at 6-12 months and then at 18-24 months if no change Solitary nodule size: >8 mm * either low or high risk patients - consider follow-up CT at 3 months, and/or CT-PET, and/or biopsy Multiple nodules size: <6 mm * Low risk patients: no routine follow-up * high risk patients: optional CT at 12 months Multiple nodules size: 6-8 mm * Low risk patients: follow-up at 3-6 months, then consider further follow-up at 18-24 months * high risk patients: follow-up at 3-6 months, then at 18-24 months if no change Multiple nodules size: >8 mm * Low risk patients: follow-up at 3-6 months, then consider further follow-up at 18-24 months * high risk patients: follow-up at 3-6 months, then at 18-24 months if no change Note: newly detected indeterminate nodule in persons 35 years of age or older. * Low risk patients: minimal or absent history of smoking and/or other known risk factors * high risk patients: history of smoking or of other known risk factors (e.g. first degree relative with lung cancer, or exposure to asbestos, radon, uranium) * if a nodule up to 8 mm is partly solid or is ground glass further follow-up is required after 24 m onths to exclude possible slow growing adenocarcinoma (LENORA) SUBSOLID NODULES Solitary pure ground-glass nodule * nodule size <6 mm - no CT follow-up required * nodule size >=6 mm - follow-up CT at 6-12 months, then every 2 years until 5 years Solitary part-solid nodule * nodule size <6 mm - no CT follow-up required * nodule size >=6 mm - follow-up CT at 3-6 months. If unchanged, and solid component remains <6 mm, then annual follow-up for 5 years Multiple subsolid nodules * nodule size <6 mm - follow-up CT at 3-6 months, consider further follow-up at 2 and 4 years if sta ble * nodule size >=6 mm - follow-up CT at 3-6 months, subsequent management based on the most suspiciou s nodule(s) Electronically signed by: Abdi Hopkins M.D. 01/14/2019 8:08 AM
--- NOTE | 2019-01-14 08:39 | History and Physical Report ---
DATE OF ADMISSION: 01/14/2019 CHIEF COMPLAINT: Chest pain. HISTORY OF PRESENT ILLNESS: This is a 48-year-old female with past medical history significant for diabetes, hyperlipidemia, history of stroke, history of concussion who presents with chest pain. The patient has been having chest pain on and off for the last 2 days. Yesterday evening, she went to [employer] and she suddenly started having severe chest pain and shortness of breath. She had to lay down and it lasted for about 10-15 minutes and subsided and was brought into the ER. Currently, pain is minimal, pressure like feeling. During this, she was feeling dizzy, but no sweating, no nausea, no vomiting. Currently has some headache, no blurred vision, no earache, no runny nose, no sore throat, no difficulty swallowing. Appetite is okay. She ate dinner outside at a [employer] and not surprised sugars running high, which she says also running high at home. She is taking her diabetes medication regularly.Denies any belly pain. Normal bowel and bladder movements. No hematuria, no burning micturition, no black stools or blood in the stools. No swelling in the legs. No rash. Currently resting comfortably and hemodynamically stable. ALLERGIES: BEE VENOM, PENICILLINS. PAST MEDICAL HISTORY: As mentioned above. PAST SURGICAL HISTORY: Dental surgery, tonsillectomy. MEDICATIONS: The patient is on aspirin 81 mg p.o. daily, atorvastatin 40 mg p.o. daily, cinnamon bark, vitamin D, ibuprofen p.r.n., insulin glargine 40 units daily, lisinopril 2.5 mg p.o. q.a.m., metformin 1000 mg p.o. b.i.d., metoprolol 25 mg p.o. b.i.d. FAMILY HISTORY: Significant for father has hypertension. Mother has diabetes. Paternal grandfather has heart transplant. Maternal aunt has breast cancer. Paternal grandmother has breast cancer. SOCIAL HISTORY: Quit smoking in 2010. Alcohol occasional. No drug use. REVIEW OF SYMPTOMS: As per HPI. Rest of review of systems is negative. PHYSICAL EXAMINATION: GENERAL: The patient is of moderate build, not in acute distress. VITAL SIGNS: Temperature 36.4, pulse 96, respiratory rate 18, blood pressure 134/104, oxygen 95% on room air. HEENT: No pallor, no icterus. Pupils equal, round, and reactive to light. NECK: No JVD, no neck masses, no carotid bruit. CARDIOVASCULAR: S1, S2, regular rate and rhythm, no murmur, no gallop. RESPIRATORY SYSTEM: Normal AP diameter. No accessory muscle use. No wheezing, no crackles. ABDOMEN: Soft, bowel sounds present. Nontender. No distention. CENTRAL NERVOUS SYSTEM: Cranial nerves II-XII grossly intact. Nonfocal. EXTREMITIES: No edema, no erythema. LABORATORIES: WBC is 9.7, hemoglobin 14.6, hematocrit 41.7, platelets 279. D-dimer 620. Sodium 136, potassium 3.9, chloride 102, bicarb 28, BUN 14, creatinine 0.7, serum glucose 473, calcium 9.1, total bilirubin 0.3, AST 9, ALT 26, alkaline phosphatase 91. Troponin I less than 0.015. Lipase 89. Beta hydroxybutyric acid 1.4. HCG negative. Chest x-ray, no acute disease seen. CTA of the chest done, unofficial report unremarkable. ELECTROCARDIOGRAM: Sinus tachycardia at a rate of 105. Nonspecific ST changes seen. ASSESSMENT AND PLAN: This is a 48-year-old female who presents with chest pain. 1. Chest pain, currently improved without any nitroglycerin, going on for the last 2 days on and off. Initial workup is negative. We will observe in telemetry floor. Serial cardiac enzymes, echocardiogram, repeat EKG. Will follow official reort of CTA chest. Keep n.p.o. until seen by cardiology in the morning. 2. Diabetes, poorly controlled. Hyperglycemia. Received a dose of IV insulin in the Emergency Room. Since the patient is n.p.o., we will cut back on Lantus to [address] on insulin sliding scale. Hold metformin. Consult glycemic pharmacy. Follow hemoglobin A1c levels. 4. Hyperlipidemia. Continue statin. Follow lipid profile. 5. Hypertension, on lisinopril and Lopressor. We will monitor the blood pressure. 6. History of cerebrovascular accident, on statin and aspirin.No residual weakness. 7. History of chronic systolic congestive heart failure with ejection fraction of 40% on last echocardiogram in 2018., not on any diuretics. We will follow a repeat echocardiogram. 8.Dvt Prophylaxis Scds. 9. Disposition: Observe in telemetry floor. Expect to discharge home and follow with family doctor. Level 1 full code. MTDD
[2019-01-14] MEDS ORDERED: METOPROLOL TARTRATE 25 MG TAB PO SCH (09:00)
[2019-01-14] MEDS ORDERED: INSULIN GLARGINE SOLOSTAR 100 UNITS/ML 3 ML PEN SC SCH ×2 (09:00)
--- NOTE | 2019-01-14 09:00 | Pharmacy Report ---
Glycemic Control Consultation - Date of Service January 14, 2019 - Scope Scope: Glycemic Pharmacist consulted by Dr Butts on 01/14 for glycemic control and to write orders per [facility] inpatient glycemic control protocol - Objective Weight: 82.1 kg Accuchecks BSG (last 24hrs): 01/13/19 01/14/19 01/14/19 22:45 01:43 05:35 Glucose 473 H* POC Glucose 284 H 348 H* 01/14/19 06:50 Glucose 311 H* POC Glucose Laboratory Data (last 24hrs): 01/13/19 01/14/19 22:45 06:50 Potassium 3.9 3.6 Carbon Dioxide 28 26 Anion Gap 6.0 5.0 Creatinine 0.76 0.50 L Est Cr Clr Drug Dosing 95.3 138.1 Beta-Hydroxybutyric Acd 1.48 1.09 - Recent Pertinent Medications Outpatient Anti-diabetic Regimen: * Basaglar 40 units daily * Metformin 1 gm BID * A1c = 13.2 % 05/10/18; updated one currently pending The patient has received: * 10 unit IV insulin bolus @ 0000 for BSG of 473 mg/dL on arrival * Novolog 7 units + 4 units @ 0600 for BSG of 348 mg/dL (to equal CF of 20 mg/dL/unit) Risk Factors for Insulin Resistance: * Baseline uncontrolled diabetes * Diet: NPO - Assessment & Plan Assessment & Plan: ASSESSMENT: * 48 y/o female admitted overnight for chest pain. She has a history of poorly controlled type 2 diabetes, managed with basal insulin + metformin as an outpatient. BSG significantly elevated on admission - was provided an IV insulin bolus as noted above. Lantus 30 units + Novolog with CF/CR parameters based on insulin calc estimates for wt/stress of 2 was initiated on admission. * Patient went for a cardiac cath and post-procedure BSG is significantly improved (186 mg/dL) * Will plan to slightly loosen CF now that BSGs are improved. Carb ratio may eventually need loosened but will continue for now. PLAN FOR INPATIENT GLYCEMIC CONTROL: * Hold outpatient oral diabetes medications * Basal insulin * Lantus 30 units SQ qAM * Bolus insulin - loosen CF * NovoLog per scale ACHS or Q6hrs while NPO * Goal Range: Low 110 mg/dL - High 140 mg/dL * Correction Factor: 25 mg/dL/unit * Nutritional / Prandial insulin per carb ratio of 1 unit per 7 grams CHO consumed Discharge Recommendations: * Will be provided once updated A1c available Thank you.
[2019-01-14 09:41] LABS: Estimated Average Glucose 289 mg/dl; Hemoglobin A1C 11.7 % (4.5-5.6)
[2019-01-14] MEDS ORDERED: MIDAZOLAM HCL 1 MG/ML 2ML VIAL ONE (11:02)
[2019-01-14] MEDS ORDERED: HEPARIN (PORCINE) 1000 UNIT/ML 10 ML (CATH LAB USE ONLY) ONE (11:02)
[2019-01-14] MEDS ORDERED: fentaNYL citrate 100 MCG/2 ML VIAL ONE (11:02)
[2019-01-14] MEDS ORDERED: NITROGLYCERIN/D5W 100MCG/ML 20ML SYR ONE (11:03)
[2019-01-14] MEDS ORDERED: NiCARDipine HCL INJ 2.5 MG/ML 10 ML AMP ONE (11:03)
--- NOTE | 2019-01-14 11:23 | Consultation Report ---
DATE OF CONSULTATION: 01/14/2019 INPATIENT CARDIOLOGY CONSULTATION CONSULTATION REQUESTED BY: Dr. Butts. REASON FOR CONSULTATION: Chest pain. HISTORY OF PRESENT ILLNESS: Ms. Hutton is a very pleasant 48-year-old woman who normally follows with myself as an outpatient. She presented to [facility] late in the evening of 01/13/2019 with complaints of worsening chest pain. The patient states that approximately 4 days prior to presentation, she notes that whenever she climbed a set of steps or walking up an inclined plane, she developed chest discomfort. She states that it was a pressure sensation that felt as though someone was pushing on her chest and it involved her entire precordium. She also felt the pressure at the same time across her shoulder blades. This would be associated with significant shortness of breath and having to stop whatever activity she was doing. She states that after a few minutes of rest, the shortness of breath and discomfort would slowly resolve. She denied any other associated symptoms of diaphoresis, nausea, palpitations, lightheadedness, dizziness, or syncope. She states that this did persist for 4 days, again recurring with any activity, never occurring at rest. 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 She was simply walking through the halls and she had to stop and felt as though she was going to collapse because the discomfort was so severe. Again, she had severe pressure across her precordium and between her shoulder blades associated with severe shortness of breath. At that time, her son brought her into the Emergency Department. Upon arrival, she was symptom free. Initial workup was unremarkable and she was admitted to telemetry. On telemetry, she did have a short fay of nonsustained ventricular tachycardia and second troponin came back above laboratory standards at 0.1. Currently, she is pain-free at rest. She states that she has been taking all of her medications as an outpatient and has not had any significant medical issues as of late. PAST SURGICAL HISTORY: 1. Tonsillectomy. 2. Dental surgery. MEDICAL ILLNESSES: 1. History of nonischemic cardiomyopathy, resolved with nonischemic Lexiscan nuclear stress test. 2. Diabetes. 4. History of CVA. 5. Dyslipidemia. 6. Strong family history of premature coronary artery disease. FAMILY HISTORY: Remarkable for mother who developed coronary artery disease and had her first stent placed in her late 40s with same age of the patient. SOCIAL HISTORY: The patient is a lifelong smoker, but has been smoke-free for several months now after being on Chantix. Drinks occasional alcohol. Denies any recreational drug use. She is not . She lives at home with her son who has special needs. She is currently employed with [employer] in [employer]. REVIEW OF SYSTEMS: As per HPI, all other review of systems reviewed and negative at this time. ALLERGIES: PENICILLINS. MEDICATIONS AN OUTPATIENT: 1. Aspirin 81 mg daily. 2. Lisinopril 2.5 mg daily. 3. Metoprolol succinate 25 mg daily. 4. Atorvastatin 40 mg daily. 5. Chantix. 6. Fish oil. 7. Metformin b.i.d. PHYSICAL EXAMINATION: VITALS: Temperature 36.6, pulse 90, respiratory rate 12, blood pressure 125/81. GENERAL: Awake, alert, oriented x3 in no acute distress. HEENT: Normocephalic, atraumatic. Pupils equal, round, reactive to light and accommodation. Extraocular muscles intact. Anicteric sclerae. Moist mucous membranes. NECK: No JVD, no bruit. CARDIOVASCULAR: Regular. Positive S4. Normal S1 and S2. No S3. No murmurs or rubs. PULMONARY: Clear to auscultation bilaterally. No rales, rhonchi, or wheezing. ABDOMEN: Bowel sounds x4, soft. No rebound, guarding, tenderness. No organomegaly. EXTREMITIES: No clubbing, cyanosis or edema. +2 pedal pulses bilaterally. SKIN: Warm and dry. TEST RESULTS: A 12-lead EKG performed in the Emergency Department independently reviewed at this time shows sinus tachycardia at 105 beats per minute, normal axis, normal intervals, low voltage, no significant ischemic changes. A 2D echocardiogram was read as normal LV chamber size with mild concentric LVH, normal LV systolic function, EF 55-60%, no segmental wall motion abnormalities are noted, grade 1 diastolic dysfunction, no significant valvular pathology, normal left atrial size. LABORATORY STUDIES OF SIGNIFICANCE: Initial troponin of 0, followup of 0.1. Review of telemetry monitoring shows 7-beat run of nonsustained ventricular tachycardia. IMPRESSION: 1. Chest pain suspicious for unstable angina. 2. Hypertension. 3. Dyslipidemia. 4. Diabetes. 5. Strong family history of coronary artery disease. 6. Tobacco abuse. RECOMMENDATIONS: It was my pleasure to see Ms. Hutton consultation today. From a cardiac standpoint, given her ongoing symptoms along with her multiple risk factors for coronary artery disease, I believe the most prudent course of action at this point will be to proceed with cardiac catheterization for direct visualization of her coronary anatomy. So the patient will be taken to the cardiac catheterization lab today and further recommendations to follow. The patient is in agreement with the above plan.
--- NOTE | 2019-01-14 11:36 | Cardiology Consultation ---
Date of Consultation January 14, 2019 Assessment & Plan (1) Elevated troponin: Patient with progressive exertional chest pain concerning for ACS in the setting of multiple ASCVD risk factors. Agree with need for additional risk stratification. No apparent contraindications to catheterization. Discussed risk, benefits, alternatives of cardiac catheterization with patient and she is willing to proceed. Plan to perform via right radial artery Further recommendations pending findings. History of Present Illness Attending Physician: Filiberto Mcnamara MD History of Present Illness Ms. Hutton is a very pleasant 48-year-old woman with a history of diabetes, hyperlipidemia, prior CVA admitted in the setting of progressive exertional chest pain and found to have a mildly elevated troponin. Interventional cardiology consulted for cardiac catheterization. Patient seen today by Dr. Pratt with [facility] cardiology who recommended catheterization. Patient's cardiac history remarkable for transient mild cardiomyopathy April 2018. This occurred in the setting of concussion and significant social stress. Outpatient stress test at that time negative for ischemia. Patient is an active smoker, she has a family history of premature coronary artery disease with mother having stents in her 40s. Currently chest pain-free. Initial troponin 0.11, EKG unremarkable. Allergies Allergy/AdvReac Type Severity Reaction Status Date / Time bee venom protein (honey bee) Allergy Severe swelling Verified 01/13/19 22:56 and difficulty breathing Penicillins Allergy Intermediate RASH Verified 01/13/19 22:56 Home Medications Home Medications Medication Instructions Recorded Confirmed Type One Daily For Women 1 tab PO DAILY 05/10/18 01/13/19 History aspirin [Aspir-81] 81 mg PO QAM 05/10/18 01/13/19 History cinnamon bark [Cinnamon] 1,000 mg PO QAM 05/10/18 01/13/19 History metformin 1,000 mg PO BIDM 05/10/18 01/13/19 History omega 4-[id number]-mkc-fish oil [Fish Oil] 1,000 mg PO DAILY 05/10/18 01/13/19 History atorvastatin 40 mg PO QAM #30 tab 05/12/18 01/13/19 Rx insulin glargine [Lantus Solostar 40 unit SC DAILY #1 box 05/12/18 01/13/19 Rx U-100 Insulin] lisinopril 2.5 mg PO QAM #30 tab 05/12/18 01/13/19 Rx metoprolol tartrate 25 mg PO BID #60 tab 05/12/18 01/13/19 Rx ergocalciferol (vitamin D2) 50,000 unit PO WK 01/13/19 01/13/19 History [Vitamin D2] ibuprofen 1,000 mg PO Q6H PRN 01/13/19 01/13/19 History Patient History Medical History Cardiomyopathy Cerebrovascular disease CVA (cerebral vascular accident) Smoker Hyperlipidemia Hyperglycemia due to type 2 diabetes mellitus (Acute) Elevated troponin (Acute) Work related injury (Acute) Weakness of both arms (Acute) Concussion (Acute) Diabetes Family History Other Diabetes Social History Preferred Language: Mauritian Communication 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: Effective 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 Beliefs That Will Affect Care: None Current Living Situation: Family Current Living Situation Comment: son Other Information That Helps Us Care for You: No Feels Safe at Home: Yes Safety Concerns: Feels Safe At This Time Smoking Status: Current every day smoker Tobacco Type: cigarettes Cigarettes Per Day: 8-9 Do You Dip or Chew Tobacco: No Hx Alcohol Use: No Hx Substance Use: No Review of Systems Review of Systems: All systems reviewed & are unremarkable except as noted in HPI & below Physical Exam Physical Exam: General: Comfortable, no acute distress HEENT: Sclerae anicteric, mucous membranes moist Lungs: Clear to auscultation bilaterally, no rhonchi or wheezes Cardiac: Regular rate and rhythm, no murmurs. No JVD. Abdomen: Soft, nontender, nondistended, positive bowel sounds. Extremities: Warm, well perfused, no edema. 2+ radial pulses Skin: No rashes or lesions. Neuro: Nonfocal Psych: Alert orient x3, normal affect and mood Results & Data Vital Signs (Past 12 Hours) Vital Signs Temp Pulse Pulse Resp BP BP Pulse Ox 01/14/19 08:02 90 01/14/19 07:42 36.6 C 88 18 125/81 93 01/14/19 04:52 36.8 C 95 H 18 128/84 96 01/14/19 02:31 96 H 18 134/104 H 95 01/14/19 02:30 103 H 18 94 01/14/19 02:04 98 H 24 116/64 96 01/14/19 02:00 95 H 19 01/14/19 01:30 96 H 21 01/14/19 01:00 89 18 106/80 96 01/14/19 00:36 99 H 20 117/77 96 01/14/19 00:35 96 H 15 01/13/19 23:55 96
--- NOTE | 2019-01-14 11:37 | Pre Anesthesia Assessment ---
Date of Service January 14, 2019 Pre Sedation Assessment Vital Signs Temp Pulse Pulse Resp BP BP Pulse Ox 01/14/19 08:02 90 01/14/19 07:42 36.6 C 88 18 125/81 93 01/14/19 04:52 36.8 C 95 H 18 128/84 96 01/14/19 02:31 96 H 18 134/104 H 95 01/14/19 02:30 103 H 18 94 01/14/19 02:04 98 H 24 116/64 96 01/14/19 02:00 95 H 19 01/14/19 01:30 96 H 21 01/14/19 01:00 89 18 106/80 96 01/14/19 00:36 99 H 20 117/77 96 01/14/19 00:35 96 H 15 01/13/19 23:55 96 01/13/19 23:00 101 H 21 95 01/13/19 22:56 102 H 20 95 01/13/19 22:45 101 H 21 136/79 96 01/13/19 22:27 36.4 C L 107 H 24 137/84 99 Cardiovascular RRR, no murmur, no edema Respiratory normal respiratory effort, lungs clear to auscultation Pre-Sedation Airway Assessment Smoking Status: Current every day smoker Hx Sleep Apnea: No Hx Difficult Intubation: No Short, Thick Neck: No Thyromental Distance: > or= 3.5 Finger Breadths Oral Cavity: + WNL Mallampati Class: III Procedure Planning Contraindications for Sedation: none Current Medications Reviewed: Yes Notes The planned sedation has been discussed with the patient. Informed Consent was obtained. I have identified the patient, determined the appropriateness of sedation and have assessed the patient immediately prior to the procedure. All medicine(s) and interventions are by my order.
--- NOTE | 2019-01-14 12:04 | Post Anesthesia Assessment ---
Date of Service January 14, 2019 Post Sedation Assessment Vital Signs Temp Pulse Pulse Resp BP BP Pulse Ox 01/14/19 08:02 90 01/14/19 07:42 36.6 C 88 18 125/81 93 01/14/19 04:52 36.8 C 95 H 18 128/84 96 01/14/19 02:31 96 H 18 134/104 H 95 01/14/19 02:30 103 H 18 94 01/14/19 02:04 98 H 24 116/64 96 01/14/19 02:00 95 H 19 01/14/19 01:30 96 H 21 01/14/19 01:00 89 18 106/80 96 01/14/19 00:36 99 H 20 117/77 96 01/14/19 00:35 96 H 15 01/13/19 23:55 96 01/13/19 23:00 101 H 21 95 01/13/19 22:56 102 H 20 95 01/13/19 22:45 101 H 21 136/79 96 01/13/19 22:27 36.4 C L 107 H 24 137/84 99 Recovery Score Activity: Moves 4 extremities Respiration: Deep Breath/Cough Circulation: +/-20% PreAnes Value Consciousness: Fully Awake Oxygen Saturation: O2 needed for >90% Discharge Sedation Level of Care: Fast Track Phase II Post Sedation Plan On clinical assessment, the patient appears to have tolerated the sedation without complications. Patient is recovering as anticipated. Patient will continue to be monitored by nursing and may be discharged when sedation discharge criteria are met per below protocol. Upon Completions of procedure and additional 15 minutes continue every 5 minute vital signs and the P.A.R. score; then discharge to a Phase I or Fast Track to Phase II per the following guidelines: * Discharge Patient to appropriate Phase II area if PAR is 8 or greater or return to pre- procedure baseline. The post - procedure orders will be as directed. * If PAR score is less than 8 or not return to pre-procedure baseline then patient will follow Phase I monitoring till PAR is reached for Phase II. The Phase I may be done in procedure room or may call to secure a Phase I area. * If naloxone or flumazenil are used for reversal, hold in Phase I for continued monitoring from when last reversal dose was given for a minimum of 60 minutes or longer pending the nurse and/or physician discretion of patient condition before discharge to Phase II. Please call the Sedation Physician to re-evaluate and complete post-note for discharge to Phase II area. Do NOT discharge from procedure sedation or Phase 1 until post- sedation evaluation note is complete by procedure /sedation MD Sedation Discharge Instructions to be given to the patient at discharge to home.
--- NOTE | 2019-01-14 12:15 | Cardiac Catheterization ---
Cardiac Cath Procedure Full Procedure Date January 14, 2019 Pre-Procedure Diagnosis Pre-Procedure Diagnosis: Non STEMI AUC Score AUC Score: 7 Post-Procedure Diagnosis Post-Procedure Diagnosis: Severe CAD and Normal Intracardiac Pressures Procedure(s) Performed Procedure(s) Performed: Coronary Angiography and Left Heart Cath Truck Loader And Unloader Yosi Solano MD Cytogenetics Technologist(s) Glunt Estimated Blood Loss Estimated Blood Loss: 5 Medication(s) Medication(s): Fentanyl, Heparin, Lidocaine 1%, Nicardipine, Nitroglycerin and Versed Summary of Findings Indication: Suspected ACS Access: 6 Fr slender right radial artery Catheters: [place] Findings: LM -luminal irregularities LAD -moderate caliber, 40% proximal disease, severe diffuse mid to distal disease up to 80%. Distal vessel wraps around apex. Gives off one large diagonal and mid segment with 70 to 80% proximal stenosis Circumflex -moderate caliber vessel, 60% proximal, mild mid segment disease, small OM1 with subtotal occlusion in the mid segment. OM 3 small, occluded proximally and fills faintly via left to left collaterals distally. RCA -large caliber vessel, dominant, 60 to 70% mid to distal stenosis, 40% distal prior to takeoff of right PDA. PDA moderate caliber, angulated with mild to moderate diffuse disease. Moderate caliber right PLB with mild to moderate diffuse disease. Provides right to left collaterals to LAD, small occluded OM's. LVEDP -6 Arterial Closure: TR band Summary: 1. Severe multivessel coronary artery disease -Severe diffuse mid LAD disease, up to 80%. 70 to 80% proximal first diagonal 60% proximal circumflex. Occluded very small OM1, OM 3 60 to 70% mid to distal RCA, provides right to left collaterals to small occluded OM's 2. Normal intracardiac filling pressure Recommendations: In the setting of insulin dependent diabetes recommend cardiac surgery evaluation for CABG Continued ASCVD risk factor modification and maximize antianginal therapy Findings discussed with Dr. Pratt. 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
[2019-01-14] MEDS ORDERED: SODIUM CHLORIDE 0.9% 1000ML 1,000 ML IV SCH (12:25)
--- NOTE | 2019-01-14 15:22 | Cardiology Progress Note ---
Date of Service January 14, 2019 Assessment & Plan (1) CAD (coronary artery disease): cardiac cath revealed multivessel disease with underlying small, diabetic arteries will need CT surgery eval as outpatient, my office will arrange pain free now will optimize medical regimen to hopefully prevent recurrent angina metoprolol changed to succinate imdur added may add amlodipine if bp tolerates pt agrees with plan remain on tele overnight Results & Data Vital Signs (Past 12 Hours) Vital Signs Temp Pulse Pulse Pulse Resp BP Pulse Ox 01/14/19 15:15 83 01/14/19 14:48 89 128/91 01/14/19 14:00 92 H 16 116/61 98 01/14/19 13:30 86 16 121/76 97 01/14/19 13:00 91 H 16 110/69 96 01/14/19 12:45 89 16 144/65 H 96 01/14/19 12:30 36.7 C 79 16 133/81 98 01/14/19 08:02 90 01/14/19 07:42 36.6 C 88 18 125/81 93 01/14/19 04:52 36.8 C 95 H 18 128/84 96
[2019-01-14] MEDS: ASPIRIN 81 MG ECTAB PO SCH (15:43)
[2019-01-14] MEDS: ATORVASTATIN 40 MG TAB PO SCH (15:44)
[2019-01-14] MEDS: MULTIVITAMIN TAB PO SCH (15:44)
[2019-01-14] MEDS: LISINOPRIL 2.5 MG TAB PO SCH (15:44)
[2019-01-14] MEDS: ISOSORBIDE MONO EXTENDED REL 30 MG TABCR PO SCH (15:45)
[2019-01-14] MEDS: METOPROLOL SUCC 50MG EXT REL TAB PO SCH (15:45)
--- NOTE | 2019-01-14 20:18 | Communication Note ---
Date of Service: January 14, 2019 Patient admitted this morning for evaluation of chest pain. Serum troponin kenneth from less than 0.015-0.114. Cardiology was consulted. Echo demonstrated normal left ventricular wall motion and systolic function. Cardiac catheterization was performed and showed diffuse multivessel disease without any critical large vessel stenoses. Cardiology recommended titration of medications and referral to CT surgery for consideration of CABG. Feels well this evening. No chest pain or shortness of breath. Blood sugar was greater than 400 at the time of admission. Patient admits some dietary indiscretion. Hemoglobin A1c was 11.7. Pharmacy consulted for glycemic management and blood sugars improved. Will need ongoing education/support. Serum magnesium 1.6. Had 9 beat run of wide-complex tachycardia this morning. Replace, follow. Serum potassium was relatively low at 3.6. Replace, follow.
[2019-01-14] MEDS ORDERED: POTASSIUM CHLORIDE 20 MEQ TABCR PO STA (20:24)
[2019-01-14] MEDS: MAGNESIUM OXIDE 400 MG TAB PO SCH (20:58)
[2019-01-15] MEDS: INSULIN ASPART 100 UNITS/ML 3 ML PEN SC SCH ×5 (00:11→17:29)
[2019-01-15 07:51] LABS: BUN Creatinine Ratio 26.9 (10-20); Calcium 9.1 mg/dl (8.5-10.1); Creatinine Clr Calc Pharmacy 179.1 ml/min; Est GFR (African American) 144.2; Est GFR (Non-African American) 124.4; Magnesium 1.8 mg/dl (1.8-2.4)
[2019-01-15] MEDS: ISOSORBIDE MONO EXTENDED REL 30 MG TABCR PO SCH (08:11)
[2019-01-15] MEDS: METOPROLOL SUCC 50MG EXT REL TAB PO SCH (08:11)
[2019-01-15] MEDS: LISINOPRIL 2.5 MG TAB PO SCH (08:39)
[2019-01-15] MEDS: ATORVASTATIN 40 MG TAB PO SCH (08:39)
[2019-01-15] MEDS: MULTIVITAMIN TAB PO SCH (08:39)
[2019-01-15] MEDS: ASPIRIN 81 MG ECTAB PO SCH (08:39)
[2019-01-15] MEDS ORDERED: INSULIN GLARGINE SOLOSTAR 100 UNITS/ML 3 ML PEN SC SCH (09:00)
[2019-01-15] MEDS ORDERED: Heparin IV Standard *NO* Bolus IV ONE (09:38)
--- NOTE | 2019-01-15 10:16 | Pharmacy Report ---
Pharmacy Glycemic Short Note 2 - Date of Service January 15, 2019 - Glycemic Short BSG Results (Last 24 hours): 01/14/19 01/14/19 01/14/19 12:31 16:29 20:18 Glucose POC Glucose 186 H 223 H 326 H* 01/14/19 01/14/19 01/14/19 20:19 20:20 23:57 Glucose POC Glucose 286 H 271 H 181 H 01/15/19 01/15/19 01/15/19 04:16 07:07 07:09 Glucose 176 H POC Glucose 165 H 183 H OUTPATIENT ANTIDIABETIC REGIMEN: * Basaglar 40 units SQ daily * Metformin 1gm PO BID * A1c = 11.7% ASSESSMENT: * Poorly controlled type 2 diabetic admitted for ACS / NSTEMI * Over the last 24 hrs, he has received 80 units of SQ insulin * BSGs did fall to desired range after being as high as upper 300s on initial presentation * Will continue with current Novolog doses today as it appeared that he responded well to these doses * Fasting BSG 183 this AM w/ 30 units of Lantus on board and after receiving 6 units of Novolog correction overnight. Will resume his outpt basal insulin dose at this time. PLAN FOR INPATIENT GLYCEMIC CONTROL: * Hold outpatient oral diabetes medications (metformin) * Basal insulin (dose increase) * Lantus 40 units SQ daily * Bolus insulin * NovoLog per scale ACHS or Q6hrs while NPO * Goal Range: Low 110 mg/dL - High 140 mg/dL * Correction Factor: 20 mg/dL/unit * Nutritional / Prandial insulin per carb ratio of 1 unit per 7 grams CHO consumed PLAN FOR DISCHARGE: * to be determined
[2019-01-15] MEDS: MAGNESIUM OXIDE 400 MG TAB PO SCH (10:18)
[2019-01-15] MEDS ORDERED: HEPARIN 25000 UNIT/500 ML D5W IV ONE (10:29)
[2019-01-15] MEDS: NITROGLYCERIN 2% OINTMENT 30GM TUBE EXT SCH ×2 (10:44→17:29)
[2019-01-15] MEDS ORDERED: Heparin Adult STANDARD Wt-Based Dextrose 5% 25,000 units/500 mL IV SCH (10:45)
[2019-01-15] MEDS ORDERED: ATORVASTATIN 40 MG TAB PO ONE (10:51)
--- NOTE | 2019-01-15 10:51 | Cardiology Progress Note ---
Date of Service January 15, 2019 Assessment & Plan (1) CAD (coronary artery disease): multivessel with 80% mid LAD 80% prox D1 60% prox LCx OM1 and OM3 occluded fed via R-L collaterals 70% mid RCA now with resting symptoms despite beta jenn and oral nitrates will require urgent CABG eval, spoke with supervisor [employer] auto repair teacher, Dr. Lockhart, at [facility] [place], accepting for transfer nitro paste now along with IV heparin d/c Imdur cont metoprolol, aspiring and atorvastatin for ground transfer once bed available. Pt voices that she understands and agrees with above plan Subjective Pt seen and examined, states that she's having chest and back discomfort at rest now. Describes it as a heaviness, similar to but not as intense as exertional discomfort she had upon presentation. Ambulated in hallway with nursing, heaviness worsened and became significantly dyspnic and diaphoretic. Tele reviewed: sinus rhythm without arrhythmia or significant ectopy. Review of Systems Review of Systems: All systems reviewed & are unremarkable except as noted in HPI & below Physical Exam Physical Exam: General: Awake, alert and oriented x 3. No acute distress. HEENT: Normocephalic, atraumatic. Pupils equal, round and reactive to light and accommodation. Extraocular muscles are intact. Anicteric sclera. Moist mucous membranes. Neck: No JVD. No bruit. Cardiovascular: Regular. Positive S-4. Normal S-1 and S-2. No S-3. No murmurs or rubs. Pulmonary: Clear to auscultation B/L. No rales, rhonchi or wheezing Abdomen: Bowel sounds x 4, soft. No rebound, guarding or tenderness. No organomegaly. Extremities: No clubbing, cyanosis or edema. +2 pedal pulses bilaterally. Skin: Warm and dry. Results & Data Vital Signs (Past 12 Hours) Vital Signs Temp Pulse Pulse Resp BP Pulse Ox 01/15/19 07:48 36.7 C 79 20 127/78 97 01/15/19 03:31 36.6 C 77 18 102/67 98 01/14/19 23:47 88 01/14/19 23:17 36.8 C 79 18 115/73 97
--- NOTE | 2019-01-15 15:20 | Hospitalist Progress Note ---
Date of Service January 15, 2019 Assessment & Plan (1) CAD (coronary artery disease): multivessel with 80% mid LAD 80% prox D1 60% prox LCx OM1 and OM3 occluded fed via R-L collaterals 70% mid RCA now with resting symptoms despite beta jenn and oral nitrates apprciate input will require urgent CABG eval, spoke with irrigationist designer pricing supervisor, Dr. Lockhart, at [facility] [place], accepting for transfer nitro paste now along with IV heparin d/c Imdur cont metoprolol, aspiring and atorvastatin for ground transfer once bed available. Pt voices that she understands and agrees with above plan PT IS TRANSFERRED TO [facility] TODAY Subjective Pt been experienced chest heaviness similar to but not as intense as exertional discomfort she had upon presentation. Ambulated in hallway with nursing, heaviness worsened and became significantly dyspnic and diaphoretic. Tele reviewed: sinus rhythm without arrhythmia or significant ectopy. Physical Exam Physical Exam: GENERAL: No sign of distress, HEENT: Sclera nonicteric, pink-purple bilateral equal reactive to light extraocular muscle intact Normal oral mucosa, neck: No JVD, no thyromegaly, trachea midline Lungs: Clear to auscultate, no wheeze or rales Cardiovascular: Regular S1 and S2, no murmur or gallop, no JVD, no lower extremity edema Abdomen: Soft, nontender, bowel sounds active, no hepatosplenomegaly Extremities: No rash or deformity, normal joint, Neuro: No focal neurological deficit, no dysarthria, no facial droop Psych: Alert awake oriented x3: Euthymic Skin: No rash LYMPH NODES: No cervical lymphadenopathy Results & Data Vital Signs (Past 12 Hours) Vital Signs Temp Pulse Pulse Resp BP Pulse Ox 01/15/19 11:42 36.5 C 80 18 98/62 L 97 01/15/19 08:00 78 01/15/19 07:48 36.7 C 79 20 127/78 97 01/15/19 03:31 36.6 C 77 18 102/67 98
[2019-01-15 17:32] LABS: Partial Thromboplastin Ratio 1.1; Partial Thromboplastin Time 29.7 Seconds (21.0-31.0)
[2019-01-16] MEDS ORDERED: INSULIN ASPART 100 UNITS/ML 3 ML PEN SC ONE (02:00)
--- NOTE | 2019-01-16 03:43 | Discharge Summary ---
Date of Service January 16, 2019 Admission HPI Per Admitting Provider DICTATED BY: Earl Butts MD DATE OF ADMISSION: 01/14/2019 CHIEF COMPLAINT: Chest pain. HISTORY OF PRESENT ILLNESS: This is a 48-year-old female with past medical history significant for diabetes, hyperlipidemia, history of stroke, history of concussion who presents with chest pain. The patient has been having chest pain on and off for the last 2 days. Yesterday evening, she went to [employer] and she suddenly started having severe chest pain and shortness of breath. She had to lay down and it lasted for about 10-15 minutes and subsided and was brought into the ER. Currently, pain is minimal, pressure like feeling. During this, she was feeling dizzy, but no sweating, no nausea, no vomiting. Currently has some headache, no blurred vision, no earache, no runny nose, no sore throat, no difficulty swallowing. Appetite is okay. She ate dinner outside at a [employer] restaurant and not surprised sugars running high, which she says also running high at home. She is taking her diabetes medication regularly.Denies any belly pain. Normal bowel and bladder movements. No hematuria, no burning micturition, no black stools or blood in the stools. No swelling in the legs. No rash. Currently resting comfortably and hemodynamically stable. Principal Diagnosis SEVERE MULTI VESSELS CAD /UNSTABLE ANGINA /NEEDS CABG Discharge Exam GENERAL: No sign of distress, HEENT: Sclera nonicteric, pink-purple bilateral equal reactive to light extraocular muscle intact Normal oral mucosa, neck: No JVD, no thyromegaly, trachea midline Lungs: Clear to auscultate, no wheeze or rales Cardiovascular: Regular S1 and S2, no murmur or gallop, no JVD, no lower extremity edema Abdomen: Soft, nontender, bowel sounds active, no hepatosplenomegaly Extremities: No rash or deformity, normal joint, Neuro: No focal neurological deficit, no dysarthria, no facial droop Psych: Alert awake oriented x3: Euthymic Skin: No rash LYMPH NODES: No cervical lymphadenopathy Discharge Data Allergies Allergy/AdvReac Type Severity Reaction Status Date / Time bee venom protein (honey bee) Allergy Severe swelling Verified 01/13/19 22:56 and difficulty breathing Penicillins Allergy Intermediate RASH Verified 01/13/19 22:56 Consultations 01/14/19 01:48 ED Decision to Admit Stat 01/14/19 04:47 Consult Case Management - Discharge Planning Routine 01/14/19 08:00 Consult Cardiology Routine 01/14/19 10:47 Consult Cardiac Catheterization Routine 01/15/19 14:35 Burn CD for patient Routine Procedures Performed Operation Date: 01/14/19 11:05 Actual Procedures p Cath, Left with Cors and Vent - Franky Solano MD s Cineradiography w/Routine Exam - Franky Solano MD Ordered Studies 01/14/19 00:05 CT angio chest PE protocol Urgent 01/14/19 11:03 CL Cath Imgs for PACS use only Routine 01/14/19 11:10 CL Cath Imgs for PACS use only Routine Hospital Course (1) CAD (coronary artery disease): presented with chest heavinness /unstable angina s/p cardiac cath shows multivessel with 80% mid LAD 80% prox D1 60% prox LCx OM1 and OM3 occluded fed via R-L collaterals 70% mid RCA now with resting symptoms despite beta jenn and oral nitrates apprciate input will require urgent CABG eval, 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 Lockhart[place] [facility] [place] nitro paste now along with IV heparin d/c Imdur cont metoprolol, aspiring and atorvastatin for ground transfer once bed available. Pt voices that she understands and agrees with above plan PT IS TRANSFERRED TO [facility] TODAY Total Time Total Time Spent Total Time Spent (In Minutes): approx 45 mins Total Time Includes: Examination of the Patient, Discharge Planning and Medication Reconciliation Discharge Plan Discharge Items Patient Disposition: Transfer Acute Care Hospital Reason For Visit: CHEST PAIN Discharge Diagnosis: SEVERE MULTI VESSELS CAD /UNSTABLE ANGINA /NEEDS CABG Discharge Goals: Decrease discomfort and Diagnostic testing Activity: As commented below Activity Comment: TOLERATED Non-emergency contact: Primary Care Provider Call non-emergency contact if: you have any medication questions Follow-up/Referrals: Marisela Bonilla DO [Primary Care Provider] - Diet: Carb Consistent or DM2 and Heart Healthy Addtl Provider Instructions: pt is being transferred to [facility] Accepting Physician CT Cardiology Dr Lockhart Prescriptions: New metoprolol succinate 50 mg Tablet Extended Release 24 Hr 50 mg PO QAM 30 Days Qty: 30 RF: 0 isosorbide mononitrate 30 mg Tablet Extended Release 24 Hr 30 mg PO QAM 30 Days Qty: 30 RF: 0 Continued aspirin [Aspir-81] 81 mg Tablet,Delayed Release (Dr/Ec) 81 mg PO QAM RF: 0 atorvastatin 40 mg Tablet 40 mg PO QAM Qty: 30 RF: 2 lisinopril 2.5 mg Tablet 2.5 mg PO QAM Qty: 30 RF: 1 Lantus Solostar U-100 Insulin 100 unit/mL (3 mL) Insulin Pen 40 unit SC DAILY Qty: 1 RF: 2 Discontinued ibuprofen 200 mg Tablet 1,000 mg PO Q6H PRN (Reason: Pain) RF: 0 ergocalciferol (vitamin D2) [Vitamin D2] 50,000 unit capsule 50,000 unit PO WK RF: 0 metformin 1,000 mg Tablet 1,000 mg PO BIDM RF: 0 cinnamon bark [Cinnamon] 500 mg Capsule 1,000 mg PO QAM RF: 0 One Daily For Women 18-0.4 mg Tablet 1 tab PO DAILY RF: 0 omega [id number] oil [Fish Oil] 1,000 mg (120 mg-180 mg) Capsule 1,000 mg PO DAILY RF: 0 metoprolol tartrate 25 mg Tablet 25 mg PO BID Qty: 60 RF: 1 Stand-Alone Forms: Call Back Authorization, [facility] Discharge Orders: Discharge Order (Routine); Ordered 01/15/19 Ordered By: Tonia Alvares Admission Data Admit Date/Time: 01/14/19 09:52 Attending Provider: Tonia Alvares Admit Provider: Earl Butts Primary Care Provider: Marisela Bonilla Other Providers: Earl Butts ; Jagjit Pratt ; Saleem Mishra ; Scooter Pope ; Lucas Yusuf ; Phi Mancuso ; Mikael King ; Evon Martinez ; Sherrie Hamilton ; Franky Solano ; Filiberto Mcnamara Service: Telemetry Medical Other Interventions: Discharge Summary Assessment (RN) Last Done: 01/15/19 18:00 DC Date/Time DO NOT enter until pt leaves facility: 01/15/19 18:30
[2019-01-16] MEDS ORDERED: ATORVASTATIN 40 MG TAB PO SCH (09:00)
== END 2019-01-15 18:30 | disposition short-term general hospital (02) | DRG 287 ==
LOC: ED 22:24 → 2N 22:24 → SUATTDRO 01-14 09:52 → 2S 01-14 12:40

== ENCOUNTER 2020-03-30 22:51 | Observation (INO) ==
--- NOTE | 2020-03-30 23:13 | Emergency Department Note ---
Impression & Plan Left arm weakness, Dizziness ED Provider Note Name: JAY IRIZARRY Age: 50 Sex: F Arrives Via: Walk-In Informant: Patient ED Provider: Kofi Woodruff MD Chief Complaint: Left arm tingling Impression: Left arm Weakness Dizziness Medical Decision Making: Pleasant 50 yr old female with previous history of CAD s/p stents, CVA without residual deficits who had HTN, DLP, DMII, and continues to smoke arrives with left arm tingling. Patient admits initially with weakness and inability to open jar which has resolved prior to arrival and just has some paresthesias and nausea currently. On initial exam patient with NO neuro defiicts by exam and thus stroke alert not felt indicated as she would not be TPA candidate. I did feel CTA indicated which showed no acute findings. CT head wo shows old infart without acute findings. Labs, EKG, CXR unremarkable other than some hyperglycemia. Patient stable throughout without return of weakness. She was given full dose ASA and will be brought in to hospitalist for further evaluation of possible TIA/CVA. Prior Medical Record and Triage/Nursing Notes reviewed by Me Additional history obtained from chart Differentials:Infection, dehydration, metabolic abnormality, hypo/hyp erglycemia, electrolyte disturbance, anemia, hypoxia, cardiac sources, intracerebral event, toxicologic, neurologic, as well as other pathologies. Vital Signs: reviewed and remarkable for no significant abnormalities Interventions: ASA 324mg PO, Zofran 4mg IV Labs:Reviewed and remarkable for Hyperglycemia Imaging:X ray results are stated below per my interpretation: Chest: 1 view: No infiltrate, no effusion, normal cardiac border. [facility] Radiologist interpretation reviewed by me: CT a head wo/w and CTA neck. No acute findings. Old right temporal infarct, atherosclerosis EKG:Per My Interpretation: Indication Left arm weakness: NSR 76 bpm, qtc 481. No Ectopy. No Ischemia. Compared to EKG 01/14/19, no significant changes. Consults:Dr Carlota Campoverde Hospitalist Plan: Disposition:Hospitalization. Condition: Good Blood pressure:Normal.No Referral necessary Prescriptions:none PDMP: n/a History of Present Illness:50 yr old female with extensive past history including CAD and TIA arrives for evaluation of left arm heaviness. Patient notes she was at work and started having tingling in left arm. Initially noted arm was weak and in particular was unable to open a jar with her left hand. Weakness resolved after a short while Associated with feeling dizzy and nausea. Notes that she feels a bit unstable with walking. No falls/trauma. Denies weakness in arms nor legs. Denies visual changes. No chest pain, shortness of breath nor other symptoms. No medications prior to arrival. Patient notes blood sugars have been doing OK. Nothing makes better nor worse though it is improving since it started around 10pm. ROS: See above HPI for pertinent positives & negatives. A total of 10 systems reviewed and were otherwise negative. Past Medical History:DMII, CAD, CVA, DLP, HTN Past Surgical History:Tonsillectomy Family History:DMII Social History:Single, lives with son, smoker Home Medications:Aspirin, Plavix, Atorvastatin, Lantus, Lisinopril Allergies:Bees, Penicillin Vitals:Blood Pressure: 131/72, Pulse 75, RR 20, T 36.4C, O2 100% on RA Physical Exam: GENERAL: Patient is well appearing and in no acute distress. EYES: No scleral icterus, unremarkable pupils. ENT: Mucous membranes moist, no nasal congestion. NECK: No masses appreciated, nomeningismus, trachea is midline. RESPIRATORY: No dyspnea. Clear to auscultation and equal bilaterally. No wheeze, no rhonchi. CARDIOVASCULAR: Regular rate and rhythm.No murmurs, rubs, gallops appreciated. GASTROINTESTINAL: Abdomen soft, non-tender, no peritonitis.Bowel sounds positive.No masses appreciated. BACK: No midline tenderness, no CVA tenderness EXTREMITIES: Normal motion all extremities, no cyanosis, no edema. NEUROLOGIC: Alert and oriented, no acute motor or sensory deficits, no focal weakness, cranial nerves grossly intact. SKIN: No rash, no jaundice, no diaphoresis. PSYCH: Appropriate GCS: 15 ED Course: Times/Reassessments: Patient evaluated immediately upon arrival to room. Patient with left arm paresthesia, nausea, and some dizziness. She has no weakness, no ataxia, nor other acute neurologic deficits on exam. Admits weakness in arm earlier has resolved. Patient continues to feel well on repeat other than continued vague paresthesias. Nausea resolved with Zofran. Kofi Woodruff MD Past Med/Surg History Medical History (Updated 03/31/20 @ 03:20 by Kofi Woodruff MD) Cardiomyopathy Cerebrovascular disease Concussion CVA (cerebral vascular accident) Diabetes Elevated troponin Hyperglycemia due to type 2 diabetes mellitus Hyperlipidemia Smoker Weakness of both arms Work related injury Surgical History History of tonsillectomy Family History Other Diabetes Social History Smoking Status: Former smoker Tobacco Type: Cigarettes Cigarettes Per Day: 10-20; Second Hand Exposure: No; Hx Alcohol Use: No Hx Substance Use: No Preferred Language: Belgian Communication Ability: Effective 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 Required: No Beliefs That Will Affect Care: None marital status: Single Current Living Situation: Family Current Living Situation Comment: son 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 [employer] How many Children do You have: 1 Feels Safe at Home: Yes Allergies Allergies Allergy/AdvReac Type Severity Reaction Status Date / Time bee venom protein (honey bee) Allergy Severe swelling Verified 03/31/20 00:13 and difficulty breathing Penicillins Allergy Intermediate RASH Verified 03/31/20 00:13 Home Meds Home Medications Medication Instructions Recorded Confirmed aspirin [Aspir-81] 81 mg PO QAM 05/10/18 03/31/20 atorvastatin 80 mg PO DAILY 03/30/20 03/31/20 bupropion HCl 150 mg PO BID 03/30/20 03/31/20 clopidogrel 75 mg PO DAILY 03/30/20 03/31/20 insulin glargine [Basaglar KwikPen 30 unit SUBCUT DAILY 03/30/20 03/31/20 U-100 Insulin] metformin 1,000 mg PO BID 03/30/20 03/31/20 ergocalciferol (vitamin D2) 50,000 unit PO WK 03/31/20 03/31/20 [Vitamin D2] insulin aspart U-100 [Novolog 0 unit SUBCUT AC 03/31/20 03/31/20 Flexpen U-100 Insulin] metoprolol succinate 100 mg PO BID 03/31/20 03/31/20 Previous Rx's Medication Instructions Recorded lisinopril 2.5 mg PO QAM #30 tab 05/12/18 Results & Data (ED) Vital Signs Vital Signs - 24 hr 03/30/20 22:53 03/30/20 23:08 09/14/20 23:12 Temperature 36.4 C L Temperature Source Oral Pulse Rate 75 71 74 Pulse Rate from SpO2 Sensor 71 73 Respiratory Rate 20 25 H 27 H Respiratory Effort / Characteristics Non-Labored Spontaneous Respiratory Depth Normal Blood Pressure 131/72 138/82 Blood Pressure Mean 91 108 Pulse Oximetry 100 100 100 Oxygen Delivery Method Room Air Sepsis New/Unexplained Change in Mental Status N/A Sepsis Action Taken by Nursing No Action Required 03/30/20 23:20 03/30/20 23:30 03/30/20 23:54 Temperature Temperature Source Pulse Rate 73 92 H 81 Pulse Rate from SpO2 Sensor 73 77 Respiratory Rate 23 25 H 22 Respiratory Effort / Characteristics Respiratory Depth Blood Pressure Blood Pressure Mean Pulse Oximetry 100 100 Oxygen Delivery Method Sepsis New/Unexplained Change in Mental Status Sepsis Action Taken by Nursing 03/30/20 23:56 03/31/20 00:00 03/31/20 00:01 Temperature Temperature Source Pulse Rate 77 129 H Pulse Rate from SpO2 Sensor 77 74 74 Respiratory Rate 18 19 18 Respiratory Effort / Characteristics Respiratory Depth Blood Pressure 100/82 100/79 Blood Pressure Mean 91 91 Pulse Oximetry 99 98 98 Oxygen Delivery Method Sepsis New/Unexplained Change in Mental Status Sepsis Action Taken by Nursing 03/31/20 00:10 03/31/20 00:20 03/31/20 00:30 Temperature Temperature Source Pulse Rate 113 H Pulse Rate from SpO2 Sensor 73 Respiratory Rate 32 H 18 17 Respiratory Effort / Characteristics Respiratory Depth Blood Pressure Blood Pressure Mean Pulse Oximetry 100 Oxygen Delivery Method Sepsis New/Unexplained Change in Mental Status Sepsis Action Taken by Nursing 03/31/20 01:00 03/31/20 01:01 Temperature Temperature Source Pulse Rate 72 73 Pulse Rate from SpO2 Sensor Respiratory Rate 17 23 Respiratory Effort / Characteristics Respiratory Depth Blood Pressure 133/85 Blood Pressure Mean 93 Pulse Oximetry Oxygen Delivery Method Sepsis New/Unexplained Change in Mental Status Sepsis Action Taken by Nursing Laboratory Data Result diagrams: 03/30/20 23:21 03/31/20 00:13 Lab Results 03/30/20 03/30/20 03/30/20 Range/Units 23:06 23:19 23:21 WBC 7.61 (4.8-10.8) K/uL RBC 4.60 (4.2-5.4) M/uL Hgb 12.9 (12.0-16.0) g/dL POC Hgb 12.9 (12.0-16.0) g/dl Hct 40.6 (37-47) % POC Hct 38 (37-47) % MCV 88.3 (80-100) fL MCH 28.0 (25-34) pg MCHC 31.8 L (32-36) g/dL RDW Std Deviation 41.3 (36.4-46.3) fL RDW Coeff of Brea 12.9 (11.5-14.5) % Plt Count 316 (130-400) K/uL MPV 9.2 (7.4-10.4) fL Immature Gran % (Auto) 0.1 % Neut % (Auto) 56.1 % Lymph % (Auto) 34.7 % [place] % (Auto) 6.4 % Eos % (Auto) 2.4 % Baso % (Auto) 0.3 % Neut # (Auto) 4.27 (1.4-6.5) K/uL Lymph # (Auto) 2.64 (1.2-3.4) K/uL [place] # (Auto) 0.49 (0.11-0.59) K/uL Eos # (Auto) 0.18 (0-0.5) K/uL Baso # (Auto) 0.02 (0-0.2) K/uL Immature Gran # (Auto) 0.01 (0.00-0.02) K/uL PT INR POC Sodium 139 (135-144) mmol/L Sodium POC Potassium 3.8 (3.3-5.0) mmol/L Potassium POC Chloride 104 (101-112) mmol/L Chloride Carbon Dioxide POC Total CO2 23 L (24-31) mmol/L Anion Gap POC Anion Gap 17.0 (16-25) mmol/L POC BUN 18 (7-18) mg/dl BUN Creatinine POC Creatinine 0.6 (0.6-1.3) mg/dl Est Cr Clr Drug Dosing Est GFR ( Amer) Est GFR (Non-Af Amer) BUN/Creatinine Ratio Glucose POC Glucose 164 H (70-99) mg/dl POC Glucose (other) 177 H (70-99) mg/dl Calcium POC Ioniz Calcium Tammie 1.16 (1.12-1.32) mmol/l Magnesium Total Bilirubin Direct Bilirubin AST ALT Alkaline Phosphatase Troponin I Total Protein Albumin TSH (0.300-4.500) uIu/ml 03/30/20 03/30/20 03/31/20 Range/Units 23:21 23:21 00:13 WBC (4.8-10.8) K/uL RBC (4.2-5.4) M/uL Hgb (12.0-16.0) g/dL POC Hgb (12.0-16.0) g/dl Hct (37-47) % POC Hct (37-47) % MCV (80-100) fL MCH (25-34) pg MCHC (32-36) g/dL RDW Std Deviation (36.4-46.3) fL RDW Coeff of Brea (11.5-14.5) % Plt Count (130-400) K/uL MPV (7.4-10.4) fL Immature Gran % (Auto) % Neut % (Auto) % Lymph % (Auto) % [place] % (Auto) % Eos % (Auto) % Baso % (Auto) % Neut # (Auto) (1.4-6.5) K/uL Lymph # (Auto) (1.2-3.4) K/uL [place] # (Auto) (0.11-0.59) K/uL Eos # (Auto) (0-0.5) K/uL Baso # (Auto) (0-0.2) K/uL Immature Gran # (Auto) (0.00-0.02) K/uL PT Cancelled 10.7 INR Cancelled 1.0 POC Sodium (135-144) mmol/L Sodium Cancelled POC Potassium (3.3-5.0) mmol/L Potassium Cancelled POC Chloride (101-112) mmol/L Chloride Cancelled Carbon Dioxide Cancelled POC Total CO2 (24-31) mmol/L Anion Gap Cancelled POC Anion Gap (16-25) mmol/L POC BUN (7-18) mg/dl BUN Cancelled Creatinine Cancelled POC Creatinine (0.6-1.3) mg/dl Est Cr Clr Drug Dosing Cancelled Est GFR ( Amer) Cancelled Est GFR (Non-Af Amer) Cancelled BUN/Creatinine Ratio Cancelled Glucose Cancelled POC Glucose (70-99) mg/dl POC Glucose (other) (70-99) mg/dl Calcium Cancelled POC Ioniz Calcium Tammie (1.12-1.32) mmol/l Magnesium Cancelled Total Bilirubin Cancelled Direct Bilirubin Cancelled AST Cancelled ALT Cancelled Alkaline Phosphatase Cancelled Troponin I Cancelled Total Protein Cancelled Albumin Cancelled TSH (0.300-4.500) uIu/ml 03/31/20 Range/Units 00:13 WBC (4.8-10.8) K/uL RBC (4.2-5.4) M/uL Hgb (12.0-16.0) g/dL POC Hgb (12.0-16.0) g/dl Hct (37-47) % POC Hct (37-47) % MCV (80-100) fL MCH (25-34) pg MCHC (32-36) g/dL RDW Std Deviation (36.4-46.3) fL RDW Coeff of Brea (11.5-14.5) % Plt Count (130-400) K/uL MPV (7.4-10.4) fL Immature Gran % (Auto) % Neut % (Auto) % Lymph % (Auto) % [place] % (Auto) % Eos % (Auto) % Baso % (Auto) % Neut # (Auto) (1.4-6.5) K/uL Lymph # (Auto) (1.2-3.4) K/uL [place] # (Auto) (0.11-0.59) K/uL Eos # (Auto) (0-0.5) K/uL Baso # (Auto) (0-0.2) K/uL Immature Gran # (Auto) (0.00-0.02) K/uL PT INR POC Sodium (135-144) mmol/L Sodium 141 POC Potassium (3.3-5.0) mmol/L Potassium 3.7 POC Chloride (101-112) mmol/L Chloride 107 Carbon Dioxide 27 POC Total CO2 (24-31) mmol/L Anion Gap 7.0 POC Anion Gap (16-25) mmol/L POC BUN (7-18) mg/dl BUN 17 Creatinine 0.68 POC Creatinine (0.6-1.3) mg/dl Est Cr Clr Drug Dosing 105.1 Est GFR ( Amer) 117.4 Est GFR (Non-Af Amer) 101.3 BUN/Creatinine Ratio 25.4 H Glucose 210 H POC Glucose (70-99) mg/dl POC Glucose (other) (70-99) mg/dl Calcium 9.1 POC Ioniz Calcium Tammie (1.12-1.32) mmol/l Magnesium 1.6 L Total Bilirubin 0.3 Direct Bilirubin < 0.1 AST 15 ALT 29 Alkaline Phosphatase 83 Troponin I < 0.015 Total Protein 6.9 Albumin 3.4 TSH 1.240 (0.300-4.500) uIu/ml Administered Medications Clopidogrel Bisulfate (Clopidogrel Bisulfate 75 Mg Tab) 75 mg PO DAILY [place] Stop: 04/30/20 01:16 Last Admin: 03/31/20 01:40 Dose: 75 mg Documented by: [id number] Discontinued Medications Aspirin (Aspirin 81 Mg Chew) 324 mg PO NOW STA Stop: 03/31/20 00:41 Last Admin: 03/31/20 00:43 Dose: 324 mg Documented by: [id number] Magnesium Sulfate/Dextrose (Magnesium Sulfate / D5w) 1 gm in 100 mls @ 100 mls/hr IV NOW STA Stop: 03/31/20 01:48 Last Infusion: 03/31/20 02:11 Dose: 0 mls/hr Documented by: [id number] Admin: 03/31/20 01:12 Dose: 100 mls/hr Documented by: [id number] Parenteral Electrolytes (Normosol-R) 250 mls @ 200 mls/hr IV .[id number] ONE Stop: 03/31/20 02:06 Last Infusion: 03/31/20 02:12 Dose: 0 mls/hr Documented by: [id number] Admin: 03/31/20 01:12 Dose: 200 mls/hr Documented by: [id number] Ioversol (Optiray 320 125ml) 125 ml IV ONCE ONE Stop: 03/31/20 00:01 Last Admin: 03/31/20 00:01 Dose: 118 ml Documented by: [id number] Ondansetron HCl (Ondansetron Inj 2 Mg/Ml 2 Ml Vial) 4 mg IV NOW STA Stop: 03/30/20 23:37 Last Admin: 03/30/20 23:56 Dose: 4 mg Documented by: [id number] Potassium Chloride (Potassium Chloride 20 Meq Tabcr) 40 meq PO NOW STA Stop: 03/31/20 00:55 Last Admin: 03/31/20 01:12 Dose: 40 meq Documented by: [id number] Discharge Plan Visit Data Chief Complaint: Arm Pain Stated Complaint: NUMB ARM, DIZZY, FREEZING ED Provider: Kofi Woodruff Discharge Problem: Left arm weakness, Dizziness Patient Disposition: Admitted As Inpatient Discharge Instructions Interventions: ED Discharge Assessment Last Done: 03/31/20 02:08
[2020-03-30 23:28] LABS: Basophils # (auto) 0.02 K/uL (0-0.2); Basophils % (auto) 0.3 %; Eosinophils # (auto) 0.18 K/uL (0-0.5); Eosinophils % (auto) 2.4 %; Hematocrit (blood only) 40.6 % (37-47); Hemoglobin 12.9 g/dL (12.0-16.0); Immature Granulocytes # (auto) 0.01 K/uL (0.00-0.02); Immature Granulocytes % (auto) 0.1 %; Lymphocytes # (auto) 2.64 K/uL (1.2-3.4); Lymphocytes % (auto) 34.7 %; Mean Corpuscular Hgb Conc 31.8 g/dL (32-36); Mean Corpuscular Volume 88.3 fL (80-100); Mean Platelet Volume 9.2 fL (7.4-10.4); Monocytes # (auto) 0.49 K/uL (0.11-0.59); Monocytes % (auto) 6.4 %; Neutrophils # (auto) 4.27 K/uL (1.4-6.5); Neutrophils % (auto) 56.1 %; Platelet Count 316 K/uL (130-400); RDW Coefficient of Variation 12.9 % (11.5-14.5); RDW Standard Deviation 41.3 fL (36.4-46.3); White Blood Count 7.61 K/uL (4.8-10.8)
[2020-03-30 23:31] LABS: iSTAT Creatinine 0.6 mg/dl (0.6-1.3); iSTAT Hemoglobin 12.9 g/dl (12.0-16.0); iSTAT Ionized Calcium 1.16 mmol/l (1.12-1.32); iSTAT Potassium 3.8 mmol/L (3.3-5.0)
[2020-03-30] MEDS ORDERED: ONDANSETRON INJ 2 MG/ML 2 ML VIAL IV STA (23:36)
[2020-03-31] MEDS ORDERED: OPTIRAY 320 125ml IV ONE
[2020-03-31 00:37] LABS: Prothrombin Time 10.7 Seconds (9.0-12.0)
[2020-03-31] MEDS ORDERED: ASPIRIN 81 MG CHEW PO STA (00:40)
[2020-03-31 00:45] LABS: Alanine Aminotransferase 29 U/L (12-78); Albumin Level 3.4 gm/dl (3.4-5.0); Aspartate Aminotransferase 15 U/L (15-37); BUN Creatinine Ratio 25.4 (10-20); Bilirubin Direct < 0.1 mg/dl (0-0.2); Blood Urea Nitrogen 17 mg/dl (7-18); Calcium 9.1 mg/dl (8.5-10.1); Carbon Dioxide 27 mmol/L (21-32); Chloride 107 mmol/L (98-107); Creatinine Clr Calc Pharmacy 105.1 ml/min; Est GFR (African American) 117.4; Est GFR (Non-African American) 101.3; Glucose 210 mg/dl (70-99); Magnesium 1.6 mg/dl (1.8-2.4); Potassium 3.7 mmol/L (3.5-5.1); Sodium 141 mmol/L (136-145)
[2020-03-31] MEDS ORDERED: MAGNESIUM SULFATE / D5W 1 GM/100 ML BAG IV STA (00:49)
[2020-03-31] MEDS ORDERED: NORMOSOL-R 250 ML IV ONE (00:52)
[2020-03-31] MEDS ORDERED: POTASSIUM CHLORIDE 20 MEQ TABCR PO STA (00:54)
[2020-03-31 00:59] LABS: Alkaline Phosphatase 83 U/L (45-117); Total Protein 6.9 gm/dl (6.4-8.2); Troponin I < 0.015 ng/ml (0-0.045)
[2020-03-31 01:16] LABS: Bilirubin,Total 0.3 mg/dl (0.2-1)
[2020-03-31] MEDS ORDERED: CLOPIDOGREL BISULFATE 75 MG TAB PO SCH (01:17)
--- NOTE | 2020-03-31 01:22 | History & Physical Report ---
Date of Service March 31, 2020 Assessment & Plan (1) TIA (transient ischemic attack): hx old CVA on CAT scan HTN, BP on the lower side CAD status post stent placement status post angioplasty hyperlipidemia on statin Rx DM 2, insulin requiring, suboptimal control as of recent outpatient hemoglobin A1c of 13.20 February 2020 past tobacco abuse. Medical telemetry Neurochecks Continue antiplatelet, statin Rx for secondary stroke prevention Decrease maintenance beta-jenn for now given borderline blood pressure to optimize cerebral perfusion for possible stroke Appropriate to hold Lisinopril for now given borderline BP. MRI brain RE TIA Neurology consult RE TIA Additional stroke work-up pending MRI results basal insulin, ISS BG goal 140-180, carb count coverage Patient due for hemoglobin A1c recheck. DVT prophylaxis. Lovenox subcu Full code Text document was generated using [employer] voice recognition software. It may contain grammatical or spelling errors. Kindly contact undersigned for clarification of any documentation item in question. History of Present Illness Chief Complaint: LUE weakness Primary Care Provider: Corina Yusuf DO History obtained from patient and records. Medical history significant for CAD status post stent placement status post angioplasty, old CVA on CT scan, HTN, hyperlipidemia, DM 2, insulin requiring, past tobacco abuse. Last confinement [facility] last month for stent restenosis status post successful balloon angioplasty. 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 Some dizziness described as lightheadedness. Patient compliant with medications. Symptoms improving upon arrival at the ER. Patient given aspirin at the ER. Medical History as above Surgical History : Tonsillectomy, dental surgery Family History : Diabetes, heart disease, breast cancer Personal/social history: Past tobacco abuse, no EtOH intake, [employer] store employee Allergies Allergy/AdvReac Type Severity Reaction Status Date / Time bee venom protein (honey bee) Allergy Severe swelling Verified 03/31/20 00:13 and difficulty breathing Penicillins Allergy Intermediate RASH Verified 03/31/20 00:13 Home Medications Home Medications Medication Instructions Recorded Confirmed Type aspirin [Aspir-81] 81 mg PO QAM 05/10/18 03/31/20 History lisinopril 2.5 mg PO QAM #30 tab 05/12/18 03/31/20 Rx atorvastatin 80 mg PO DAILY 03/30/20 03/31/20 History bupropion HCl 150 mg PO BID 03/30/20 03/31/20 History clopidogrel 75 mg PO DAILY 03/30/20 03/31/20 History insulin glargine [Basaglar KwikPen 30 unit SUBCUT DAILY 03/30/20 03/31/20 History U-100 Insulin] metformin 1,000 mg PO BID 03/30/20 03/31/20 History ergocalciferol (vitamin D2) 50,000 unit PO WK 03/31/20 03/31/20 History [Vitamin D2] insulin aspart U-100 [Novolog 0 unit SUBCUT AC 03/31/20 03/31/20 History Flexpen U-100 Insulin] metoprolol succinate 100 mg PO BID 03/31/20 03/31/20 History Past Med/Surg History Medical History (Updated 03/31/20 @ 03:20 by Kofi Woodruff MD) Cardiomyopathy Cerebrovascular disease Concussion CVA (cerebral vascular accident) Diabetes Elevated troponin Hyperglycemia due to type 2 diabetes mellitus Hyperlipidemia Smoker Weakness of both arms Work related injury Surgical History History of tonsillectomy Family History Other Diabetes Social History Smoking Status: Never smoker Tobacco Type: Cigarettes Cigarettes Per Day: 10-20; Second Hand Exposure: No; Hx Alcohol Use: No Hx Substance Use: No Preferred Language: Amharic Communication Ability: Effective Structural Engineer Required: No Beliefs That Will Affect Care: None marital status: Single Current Living Situation: Family Current Living Situation Comment: son 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 [employer] How many Children do You have: 1 Other Information That Helps Us Care for You: No Feels Safe at Home: Yes Safety Concerns: Feels Safe At This Time Review of Systems Review of Systems: As per HPI, all 10 systems reviewed, all other ROS negative Physical Exam Physical Exam: GENERAL: Comfortable, obese, pleasant, no respiratory distress SKIN: Normal color, warm HEENT: Bespectacled, pink palpebral conjunctivae, no ptosis, dry buccal mucosa NECK : Supple, short neck, no tenderness CHEST : CTA, no tenderness HEART : RRR, no obvious murmurs ABDOMEN: Some distention, nontender EXTREMITIES : No LE swelling/tenderness, no other conspicuous deformities noted NEUROLOGIC : Coherent, no facial asymmetry, negative pronator drift, no other gross focality Results & Data Results & Data ([facility]) Vital Signs (Past 12 Hours) Vital Signs Temp Pulse Resp BP Pulse Ox 03/31/20 00:30 17 03/31/20 00:20 18 03/31/20 00:10 113 H 32 H 100 03/31/20 00:01 129 H 18 100/79 98 03/31/20 00:00 19 98 03/30/20 23:56 77 18 100/82 99 03/30/20 23:54 81 22 03/30/20 23:30 92 H 25 H 100 03/30/20 23:20 73 23 100 03/30/20 23:12 74 27 H 100 03/30/20 23:08 71 25 H 138/82 100 03/30/20 22:53 36.4 C L 75 20 131/72 100 Laboratory Results Laboratory Results WBC 7.61 K/uL (4.8-10.8) 03/30/20 23:21 RBC 4.60 M/uL (4.2-5.4) 03/30/20 23:21 Hgb 12.9 g/dL (12.0-16.0) 03/30/20 23:21 POC Hgb 12.9 g/dl (12.0-16.0) 03/30/20 23:19 Hct 40.6 % (37-47) 03/30/20 23:21 POC Hct 38 % (37-47) 03/30/20 23:19 MCV 88.3 fL (80-100) 03/30/20 23:21 MCH 28.0 pg (25-34) 03/30/20 23:21 MCHC 31.8 g/dL (32-36) L 03/30/20 23:21 RDW Std Deviation 41.3 fL (36.4-46.3) 03/30/20 23:21 RDW Coeff of Brea 12.9 % (11.5-14.5) 03/30/20 23:21 Plt Count 316 K/uL (130-400) 03/30/20 23:21 MPV 9.2 fL (7.4-10.4) 03/30/20 23:21 Immature Gran % (Auto) 0.1 % 03/30/20 23:21 Neut % (Auto) 56.1 % 03/30/20 23:21 Lymph % (Auto) 34.7 % 03/30/20 23:21 [place] % (Auto) 6.4 % 03/30/20 23:21 Eos % (Auto) 2.4 % 03/30/20 23:21 Baso % (Auto) 0.3 % 03/30/20 23:21 Neut # (Auto) 4.27 K/uL (1.4-6.5) 03/30/20 23:21 Lymph # (Auto) 2.64 K/uL (1.2-3.4) 03/30/20 23:21 [place] # (Auto) 0.49 K/uL (0.11-0.59) 03/30/20 23:21 Eos # (Auto) 0.18 K/uL (0-0.5) 03/30/20 23:21 Baso # (Auto) 0.02 K/uL (0-0.2) 03/30/20 23:21 Immature Gran # (Auto) 0.01 K/uL (0.00-0.02) 03/30/20 23:21 PT 10.7 Seconds (9.0-12.0) 03/31/20 00:13 INR 1.0 (0.9-1.1) 03/31/20 00:13 POC Sodium 139 mmol/L (135-144) 03/30/20 23:19 Sodium 141 mmol/L (136-145) 03/31/20 00:13 POC Potassium 3.8 mmol/L (3.3-5.0) 03/30/20 23:19 Potassium 3.7 mmol/L (3.5-5.1) 03/31/20 00:13 POC Chloride 104 mmol/L (101-112) 03/30/20 23:19 Chloride 107 mmol/L (98-107) 03/31/20 00:13 Carbon Dioxide 27 mmol/L (21-32) 03/31/20 00:13 POC Total CO2 23 mmol/L (24-31) L 03/30/20 23:19 Anion Gap 7.0 (3-11) 03/31/20 00:13 POC Anion Gap 17.0 mmol/L (16-25) 03/30/20 23:19 POC BUN 18 mg/dl (7-18) 03/30/20 23:19 BUN 17 mg/dl (7-18) 03/31/20 00:13 Creatinine 0.68 mg/dl (0.6-1.2) 03/31/20 00:13 POC Creatinine 0.6 mg/dl (0.6-1.3) 03/30/20 23:19 Est Cr Clr Drug Dosing 105.1 ml/min 03/31/20 00:13 Est GFR ( Amer) 117.4 03/31/20 00:13 Est GFR (Non-Af Amer) 101.3 03/31/20 00:13 BUN/Creatinine Ratio 25.4 (10-20) H 03/31/20 00:13 Glucose 210 mg/dl (70-99) H 03/31/20 00:13 POC Glucose 164 mg/dl (70-99) H 03/30/20 23:06 POC Glucose (other) 177 mg/dl (70-99) H 03/30/20 23:19 Calcium 9.1 mg/dl (8.5-10.1) 03/31/20 00:13 POC Ioniz Calcium Tammie 1.16 mmol/l (1.12-1.32) 03/30/20 23:19 Magnesium 1.6 mg/dl (1.8-2.4) L 03/31/20 00:13 Total Bilirubin 0.3 mg/dl (0.2-1) 03/31/20 00:13 Direct Bilirubin < 0.1 mg/dl (0-0.2) 03/31/20 00:13 AST 15 U/L (15-37) 03/31/20 00:13 ALT 29 U/L (12-78) 03/31/20 00:13 Alkaline Phosphatase 83 U/L (45-117) 03/31/20 00:13 Troponin I < 0.015 ng/ml (0-0.045) 03/31/20 00:13 Total Protein 6.9 gm/dl (6.4-8.2) 03/31/20 00:13 Albumin 3.4 gm/dl (3.4-5.0) 03/31/20 00:13 TSH 1.240 uIu/ml (0.300-4.500) 03/31/20 00:[address] head initial read: Encephalomalacia right parietal lobe suggesting sequela of old infarct. CT angio head initial read: Negative for aneurysm, stenosis, or occlusion involving the [place] of [place]. CT angios neck initial read: Mild atherosclerotic disease involving the bilateral carotid bulb region otherwise unremarkable CT. Unremarkable bilateral vertebral arteries. Chest x-ray as per my interpretation atelectasis, cardiomegaly EKG as per my interpretation : Rate 70, NSR, normal axis, no ischemia, low voltage Code Status & VTE Plan VTE Prophylaxis Plan VTE Prophylaxis will be ordered: Yes
[2020-03-31] MEDS ORDERED: GLUCOSE 10 TABS/TUBE PO PRN (02:37)
[2020-03-31] MEDS ORDERED: TRAMADOL HCL 50 MG TABLET PO PRN (02:37)
[2020-03-31] MEDS ORDERED: DEXTROSE 50% 50 ML SYRINGE IV PRN (02:37)
[2020-03-31] MEDS ORDERED: GLUCAGON FOR INJ 1 MG VIAL SQ PRN (02:37)
[2020-03-31] MEDS ORDERED: CARBOHYDRATES FOR HYPOGLYCEMIA PO PRN (02:37)
[2020-03-31] MEDS ORDERED: ACETAMINOPHEN 325 MG TAB PO PRN (02:37)
[2020-03-31] MEDS ORDERED: PROMETHAZINE HCL 12.5 MG in SODIUM CHLORIDE 0.9% 50 ML IV PRN (02:37)
[2020-03-31] MEDS ORDERED: GLUCOSE 40% GEL 15 GM TUBE PO PRN (02:37)
[2020-03-31] MEDS: INSULIN ASPART 100 UNITS/ML 3 ML PEN SC SCH ×4 (05:34→17:18)
[2020-03-31 06:22] LABS: Basophils # (auto) 0.03 K/uL (0-0.2); Basophils % (auto) 0.4 %; Eosinophils # (auto) 0.19 K/uL (0-0.5); Eosinophils % (auto) 2.4 %; Hematocrit (blood only) 35.2 % (37-47); Hemoglobin 11.8 g/dL (12.0-16.0); Immature Granulocytes # (auto) 0.02 K/uL (0.00-0.02); Immature Granulocytes % (auto) 0.3 %; Lymphocytes # (auto) 2.89 K/uL (1.2-3.4); Lymphocytes % (auto) 37.1 %; Mean Corpuscular Hemoglobin 29.2 pg (25-34); Mean Corpuscular Hgb Conc 33.5 g/dL (32-36); Mean Corpuscular Volume 87.1 fL (80-100); Mean Platelet Volume 9.2 fL (7.4-10.4); Monocytes # (auto) 0.51 K/uL (0.11-0.59); Monocytes % (auto) 6.6 %; Neutrophils # (auto) 4.14 K/uL (1.4-6.5); Neutrophils % (auto) 53.2 %; Platelet Count 266 K/uL (130-400); RDW Coefficient of Variation 12.8 % (11.5-14.5); RDW Standard Deviation 40.8 fL (36.4-46.3); Red Blood Count 4.04 M/uL (4.2-5.4); White Blood Count 7.78 K/uL (4.8-10.8)
[2020-03-31 07:03] LABS: BUN Creatinine Ratio 26.1 (10-20); Calcium 8.9 mg/dl (8.5-10.1); Creatinine Clr Calc Pharmacy 134.9 ml/min; Est GFR (African American) 127.4; Est GFR (Non-African American) 109.9; Magnesium 1.8 mg/dl (1.8-2.4); Potassium 3.8 mmol/L (3.5-5.1)
--- NOTE | 2020-03-31 07:36 | Magnetic Resonance Report ---
MRI OF THE BRAIN WITHOUT IV CONTRAST CLINICAL HISTORY: Transient ischemic attack COMPARISON STUDY: MRI of the brain dated 05/11/2018. CT of the brain dated 03/30/2020. TECHNIQUE: MRI of the brain was performed utilizing various T1 and T2-weighted sequences in the axial , sagittal, and coronal planes. IV contrast was not administered for this examination. FINDINGS: Brain parenchyma: Right parietal encephalomalacia is unchanged and consistent with a remote infarct. There is minimal microangiopathic disease. There is no hemorrhage or mass effect. There is no restric gabe diffusion to suggest acute ischemia. Landry-white matter differentiation is preserved. No extra-axi al fluid collection is seen. The cerebellar tonsils are normal in configuration. Ventricles, sulci, and cisterns: Normal in configuration. Pituitary and sella: Unremarkable. Intracranial vasculature: Normal flow voids are maintained at the skull base. Orbits: The bony orbits are grossly intact. Orbital contents are normal in appearance. Sinuses and mastoids: Clear. Calvarium: Unremarkable. Cervical cord: Partially visualized cervical spinal cord is normal in morphology and signal intensity . IMPRESSION: 1. No acute intracranial abnormality. 2. Encephalomalacia from a chronic right parietal infarct is unchanged from previous. ACT 112: Negative or not required by law. Electronically signed by: Giancarlo Osuna M.D. 03/31/2020 7:34 AM
--- NOTE | 2020-03-31 07:47 | CT Scan Report ---
CT ANGIOGRAM OF THE BRAIN COMBO; CT ANGIOGRAM OF THE NECK CLINICAL HISTORY: Transient ischemic attack. Dizziness. Left arm heaviness. COMPARISON STUDY: CT angiogram above the head and neck dated 05/11/2018. TECHNIQUE: Unenhanced axial CT scan of the brain is performed. Subsequently, following the IV adminis tration of 118 of [address] [address], CT angiogram of the head and neck was performed from the aortic arch t o the vertex. Images are reviewed in the axial, sagittal, and coronal planes. 3-D MIPS images are cre ated and assessed. IV contrast was administered without complication. All measurements were calculate d based on NASCET criteria. A dose lowering technique was utilized adhering to the principles of ALA RA. CT DOSE: 1176.62 mGy.cm FINDINGS: Brain parenchyma: Right parietal encephalomalacia is unchanged and consistent with a remote infarct. There is no hemorrhage, mass effect, or evidence of acute territorial ischemia by CT criteria. There is no evidence of enhancing mass lesion on the angiogram phase images. The ventricles, sulci, and cis terns are normal in configuration. Landry-white matter differentiation is preserved. No extra-axial flu id collection is seen. Thoracic aorta: Visualized portions of the thoracic aorta are normal in caliber. The aortic arch demo nstrates standard 3-vessel anatomy. Right carotid arterial system: The right common carotid artery is widely patent, as are the internal and external carotid arteries. Ossified plaque is noted in the carotid bulb. Left carotid arterial system: The left common carotid artery is widely patent, as are the left campus recruiting internship al and external carotid arteries. Calcified plaque is noted in the carotid bulb. Vertebral arteries: The vertebral arteries are widely patent bilaterally and codominant. Subclavian arteries: Widely patent bilaterally. Intracranial vasculature: There is mild atherosclerotic calcification of the cavernous carotid arteri es. The internal carotid arteries are patent at the skull base, as are the anterior and middle cerebr al arteries bilaterally. The vertebrobasilar system and posterior cerebral arteries are widely patent . The vertebral arteries are codominant. There is no aneurysm, high-grade stenosis, or focal vessel c ut off seen throughout the intracranial circulation. Jugular veins: Patent bilaterally. Dural sinuses: Patent. Lung apices: Partially visualized upper lobe lung parenchyma appears clear. Soft tissues: The visualized pharyngeal soft tissues are normal in appearance noting angiographic pha se technique. The oropharyngeal airway appears widely patent. Low-attenuation thyroid nodules measure up to 1.7 cm. The salivary glands are normal in appearance. No cervical lymphadenopathy is seen. Skeletal structures: The skeletal structures are osteopenic. The calvarium appears intact. The cervic al spine is within normal limits. No lytic or blastic lesions are seen. Sinuses and mastoids: The paranasal sinuses are clear. The mastoid air cells are well pneumatized. IMPRESSION: 1. There is no hemorrhage, mass effect, or evidence of acute territorial ischemia by CT criteria. 2. Unremarkable CT angiogram of the brain. 3. Unremarkable CT angiogram of the neck. ACT 112: Negative or not required by law. Electronically signed by: Giancarlo Osuna M.D. 03/31/2020 7:46 AM
--- NOTE | 2020-03-31 07:57 | XRay Report ---
XR chest 1V portable CLINICAL HISTORY: left arm discomfort COMPARISON STUDY: 01/13/2019 FINDINGS: The heart is normal in size. There is no failure. There is no focal pulmonary consolidation . There are no pleural effusions. Lung volumes are slightly diminished. There are subsegmental atelec tatic changes present the lung bases.[ IMPRESSION: No active disease in the chest. ACT 112: Negative or not required by law. Electronically signed by: Dorian Graham M.D. 03/31/2020 7:55 AM
[2020-03-31] MEDS ORDERED: ENOXAPARIN INJ 40 MG/0.4 ML SYR SQ SCH (09:00)
[2020-03-31] MEDS ORDERED: METOPROLOL SUCC 25MG EXT REL TAB PO SCH (09:00)
[2020-03-31] MEDS ORDERED: BuPROPion SR 150 MG TABCR PO SCH (09:00)
[2020-03-31] MEDS ORDERED: ATORVASTATIN 40 MG TAB PO SCH (09:00)
[2020-03-31] MEDS ORDERED: SODIUM CHLORIDE 0.9% 1000ML 1,000 ML IV ONE (11:40)
--- NOTE | 2020-03-31 15:12 | Electrocardiogram Report ---
Test Reason : Blood Pressure : / mmHG Vent. Rate : 071 BPM Atrial Rate : 071 BPM P-R Int : 186 ms QRS Dur : 068 ms QT Int : 432 ms P-R-T Axes : 041 004 054 degrees QTc Int : 469 ms Normal sinus rhythm Low voltage QRS Borderline ECG When compared with ECG of 15-JAN-2019 06:52, No significant change was found Confirmed by Joon Severino ([id number]) on 03/31/2020 3:12:41 PM Referred By: REFERRED SELF Confirmed By:Joon Severino
--- NOTE | 2020-03-31 16:23 | Consultation Report ---
DATE OF CONSULTATION: 03/31/2020 CHIEF COMPLAINT: Left upper extremity weakness. HISTORY OF PRESENT ILLNESS: A 50-year-old woman with a history of hypertension, coronary artery disease status post stent placement, hyperlipidemia, and insulin-dependent diabetes, admitted to the hospital last evening for transient left upper extremity heaviness and weakness. 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 when her symptoms started. She denied any neck pain, chest pain, or shortness of breath. She did have some dizziness, which she described as lightheadedness. Upon arrival to the Emergency Department, her symptoms had improved. The patient was given aspirin in the Emergency Department. She was admitted from the Emergency Department due to concern for possible transient ischemic attack. Per discussion patient felt odd yesterday at work like never before. She felt dizzy and alerted with confusion. She also noted left arm jerking, paresthesia, and numbness. No loss of consciousness. No history of simialr spells. Reports compliance with her medications. ALLERGIES: INCLUDE BEE VENOM PROTEIN AND PENICILLINS. HOME MEDICATIONS: Aspirin 81 mg daily, atorvastatin 80 mg daily, Wellbutrin 150 mg twice daily, clopidogrel 75 mg daily, insulin, metoprolol 100 mg twice daily, Metformin 1000 mg twice daily. PAST MEDICAL HISTORY: Includes cardiomyopathy, cerebrovascular disease, concussion, cerebrovascular accident, type 2 diabetes, hyperglycemia, hyperlipidemia, smoker, coronary artery disease, hyperlipidemia. PAST SURGICAL HISTORY: History of a tonsillectomy. SOCIAL HISTORY: She is a former smoker and previously smoked 10-20 cigarettes per day. No alcohol use history. 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 REVIEW OF SYSTEMS: A 10-point review of systems was conducted and negative except as noted above in the HPI. PHYSICAL EXAMINATION: VITAL SIGNS: Blood pressure 112/83, pulse 87, respiratory rate 18, temperature is 36.7 degrees Celsius, oxygen saturation is 97% on room air. GENERAL: The patient appears stated age, no distress. HEAD AND FACE: Normocephalic and atraumatic. Normal eyelids, and normal conjunctivae. NECK: Supple. Respiratory rate shows normal effort. CARDIOVASCULAR: Normal pulses. ABDOMEN: Nondistended. No skin rash or lesions noted. Mood is normal. Normal affect. NEUROLOGIC: She is awake, alert and oriented to person, place and time. Her memory is appropriate. Her attention is normal. Her knowledge is appropriate. There is no evidence of an aphasia. Comprehension is intact. Speech is clear and fluent. No visual defect on confrontation. Pupils are equal and round. Extraocular muscles are intact. No nystagmus. Facial sensation intact. Face is symmetric. Intact hearing. Palate is symmetric. Good shoulder shrug. Tongue is midline. Gait examination deferred. No ataxia with [id number]-[id number] testing. No tremor. Sensation is intact to light touch. Muscle tone is normal. Muscle exam is 5/5 throughout. Reflexes, negative Ann-Marie sign bilateral. No ankle clonus. DIAGNOSTIC TESTING AND LABORATORY VALUES: WBC 7.78, hemoglobin 11.8, platelet count 266. INR is 1.0. Sodium is 140, potassium 3.8, chloride 110, carbon dioxide 25, BUN is 14, creatinine 0.53, glucose is 201. Magnesium is 1.8, calcium 8.9. Triglycerides 74, LDL cholesterol 39, HDL cholesterol 31. TSH is 1.24. MRI brain without IV contrast showed no acute intracranial abnormality. Encephalomalacia from a chronic right parietal infarct is unchanged from previous. There is no evidence of an acute ischemic stroke. Chest x-ray, no active disease in the chest. Head and neck CTA, there is no hemorrhage, mass effect, or evidence of acute territorial ischemia. Unremarkable CT angiogram of the brain. Unremarkable CT angiogram of the neck. ASSESSMENT AND PLAN: A 50-year-old female with multiple medical comorbidities and stroke risk factors including insulin-dependent diabetes, prior history of right MCA cerebrovascular accident, history of coronary artery disease status post stent, and hypertension, admitted with a possible focal motor or complex partial seizure. Recommend to continue dual antiplatelet therapy, aspirin 81 mg daily and Plavix 75 mg daily. Continue home high intensity statin. Recommend starting Keppra 500 mg twice daily. Will need to obtain outpatient EEG. Discussed importance of blood glucose management as patient sugars appear to be not well controlled in the past with prior HA1c > 11. Otherwise, blood pressure goal systolic blood pressure less than 140, diastolic blood pressure less than 90. The patient can follow up with neurology in 8 weeks after discharge. RHODA
--- NOTE | 2020-03-31 16:42 | Discharge Summary ---
Date of Service March 31, 2020 Admission HPI Per Admitting Provider History obtained from patient and records. Medical history significant for CAD status post stent placement status post angioplasty, old CVA on CT scan, HTN, hyperlipidemia, DM 2, insulin requiring, past tobacco abuse. Last confinement [facility] last month for stent restenosis status post successful balloon angioplasty. 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 Some dizziness described as lightheadedness. Patient compliant with medications. Symptoms improving upon arrival at the ER. Patient given aspirin at the ER. Medical History as above Surgical History : Tonsillectomy, dental surgery Family History : Diabetes, heart disease, breast cancer Personal/social history: Past tobacco abuse, no EtOH intake, [employer] store employee Admission Exam Per Admitting Provider GENERAL: Comfortable, obese, pleasant, no respiratory distress SKIN: Normal color, warm HEENT: Bespectacled, pink palpebral conjunctivae, no ptosis, dry buccal mucosa NECK : Supple, short neck, no tenderness CHEST : CTA, no tenderness HEART : RRR, no obvious murmurs ABDOMEN: Some distention, nontender EXTREMITIES : No LE swelling/tenderness, no other conspicuous deformities noted NEUROLOGIC : Coherent, no facial asymmetry, negative pronator drift, no other gross focality Principal Diagnosis Focal motor seizures h/o MCA stroke uncontrolled DMII Discharge Exam CONSTITUTIONAL: WNWD, generally well-appearing EYES: EOMI bilaterally, PERRL, normal conjunctivae ENT: external ear and nose normal, oropharynx clear, MMM RESPIRATORY: clear to auscultation bilaterally, no crackles, rales or wheezes, normal respiratory effort CARDIOVASCULAR: regular rate and rhythm, S1 and 2 heard without murmurs, gallops or rubs, no JVD, no peripheral edema GASTROINTESTINAL: soft, nontender, nondistended MUSCULOSKELETAL: strength 5/5 throughout, head is normocephalic and atraumatic SKIN: warm and dry NEUROLOGIC: patellar DTRs 2+ bilat. No facial palsy, no dysarthria. CN 2-12 intact, no sensory deficit, normal cognition, normal speech, no tremor PSYCHIATRIC: alert cooperative and oriented to person, place and time. Discharge Data Allergies Allergy/AdvReac Type Severity Reaction Status Date / Time bee venom protein (honey bee) Allergy Severe swelling Verified 03/31/20 00:13 and difficulty breathing Penicillins Allergy Intermediate RASH Verified 03/31/20 00:13 Consultations 03/31/20 00:40 ED Decision to Admit Stat 03/31/20 02:37 Consult Case Management - Discharge Planning Routine Consult Neurology Routine Ordered Studies MRI OF THE BRAIN WITHOUT IV CONTRAST CLINICAL HISTORY: Transient ischemic attack COMPARISON STUDY: MRI of the brain dated 05/11/2018. CT of the brain dated 03/30/2020. TECHNIQUE: MRI of the brain was performed utilizing various T1 and T2-weighted sequences in the axial, sagittal, and coronal planes. IV contrast was not administered for this examination. FINDINGS: Brain parenchyma: Right parietal encephalomalacia is unchanged and consistent with a remote infarct. There is minimal microangiopathic disease. There is no hemorrhage or mass effect. There is no restricted diffusion to suggest acute ischemia. Landry-white matter differentiation is preserved. No extra-axial fluid collection is seen. The cerebellar tonsils are normal in configuration. Ventricles, sulci, and cisterns: Normal in configuration. Pituitary and sella: Unremarkable. Intracranial vasculature: Normal flow voids are maintained at the skull base. Orbits: The bony orbits are grossly intact. Orbital contents are normal in appearance. Sinuses and mastoids: Clear. Calvarium: Unremarkable. Cervical cord: Partially visualized cervical spinal cord is normal in morphology and signal intensity. IMPRESSION: 1. No acute intracranial abnormality. 2. Encephalomalacia from a chronic right parietal infarct is unchanged from previous. 03/31/2020 XR chest 1V portable CLINICAL HISTORY: left arm discomfort COMPARISON STUDY: 01/13/2019 FINDINGS: The heart is normal in size. There is no failure. There is no focal p ulmonary consolidation. There are no pleural effusions. Lung volumes are slightly diminished. There are subsegmental atelectatic changes present the lung bases.[ IMPRESSION: No active disease in the chest. Electronically signed by: Dorian Graham M.D. 03/31/2020 7:[address] ANGIOGRAM OF THE BRAIN COMBO; CT ANGIOGRAM OF THE NECK CLINICAL HISTORY: Transient ischemic attack. Dizziness. Left arm heaviness. COMPARISON STUDY: CT angiogram above the head and neck dated 05/11/2018. FINDINGS: Brain parenchyma: Right parietal encephalomalacia is unchanged and consistent with a remote infarct. There is no hemorrhage, mass effect, or evidence of acute territorial ischemia by CT criteria. There is no evidence of enhancing mass lesion on the angiogram phase images. The ventricles, sulci, and cisterns are normal in configuration. Landry-white matter differentiation is preserved. No extra-axial fluid collection is seen. Thoracic aorta: Visualized portions of the thoracic aorta are normal in caliber. The aortic arch demonstrates standard 3-vessel anatomy. Right carotid arterial system: The right common carotid artery is widely patent, as are the internal and external carotid arteries. Ossified plaque is noted in the carotid bulb. Left carotid arterial system: The left common carotid artery is widely patent, as are the left internal and external carotid arteries. Calcified plaque is noted in the carotid bulb. Vertebral arteries: The vertebral arteries are widely patent bilaterally and codominant. Subclavian arteries: Widely patent bilaterally. Intracranial vasculature: There is mild atherosclerotic calcification of the cavernous carotid arteries. The internal carotid arteries are patent at the skull base, as are the anterior and middle cerebral arteries bilaterally. The vertebrobasilar system and posterior cerebral arteries are widely patent. The vertebral arteries are codominant. There is no aneurysm, high-grade stenosis, or focal vessel cut off seen throughout the intracranial circulation. Jugular veins: Patent bilaterally. Dural sinuses: Patent. Lung apices: Partially visualized upper lobe lung parenchyma appears clear. Soft tissues: The visualized pharyngeal soft tissues are normal in appearance noting angiographic phase technique. The oropharyngeal airway appears widely patent. Low-attenuation thyroid nodules measure up to 1.7 cm. The salivary glands are normal in appearance. No cervical lymphadenopathy is seen. Skeletal structures: The skeletal structures are osteopenic. The calvarium appears intact. The cervical spine is within normal limits. No lytic or blastic lesions are seen. Sinuses and mastoids: The paranasal sinuses are clear. The mastoid air cells are well pneumatized. IMPRESSION: 1. There is no hemorrhage, mass effect, or evidence of acute territorial ischemia by CT criteria. 2. Unremarkable CT angiogram of the brain. 3. Unremarkable CT angiogram of the neck. Electronically signed by: Giancarlo Osuna M.D. 03/31/2020 7:46 AM Hospital Course (1) Seizure: The patient is a 50-year-old female with a history of prior MCA stroke that began having lightheadedness left upper extremity heaviness and weakness. She also had some left arm jerking paresthesia and numbness. She reported no loss of consciousness and no history of similar spells. She did report compliance with her medications. She was admitted to the hospitalist service and neurology was consulted. Her antiplatelet and statin therapy were continued her maintenance beta-jenn was decreased for borderline blood pressure to optimize cerebral perfusion for possible stroke. Her lisinopril was held again for permissive hypertension. Work-up included head and neck CTA which was normal, a chest x-ray which was unrevealing, and a brain MRI which showed no acute intracranial abnormality but did show encephalomalacia from a chronic right parietal infarct unchanged from prior imaging. The patient symptoms improved by the time she got to the ER. Telemetry monitoring overnight revealed no evidence of arrhythmias. She remained in sinus rhythm and hemodynamically stable overnight. She was evaluated by therapy and felt safe to return home. She had no issues with swallowing and tolerating p.o. Neurology was consulted and felt this was consistent with a possible focal motor or complex partial seizure. Dual antiplatelet therapy was recommended to be continued including the high intensity statin. Recommend starting Keppra 500 twice daily and will need to obtain an outpatient EEG. Her hemoglobin A1c was reflecting poorly controlled diabetes and the emphasis of appropriate blood glucose management especially at her age was emphasized. She is already on multi daily dose insulin which is appropriate. She was recommended to follow-up with neurology in 8 weeks after discharge. Close primary care follow-up was also recommended. At time of discharge she was mentating and ambulating at baseline and tolerating p.o. She was sent home in stable condition. Total Time Total Time Spent Total Time Spent (In Minutes): 60 Total Time Includes: Examination of the Patient, Discharge Planning, Medication Reconciliation and Communication With Other Providers Discharge Plan Discharge Items Patient Disposition: Home - Self-Care Reason For Visit: TIA Discharge Diagnosis: Focal motor seizures h/o MCA stroke uncontrolled DMII Activity: Resume your previous activity Non-emergency contact: Primary Care Provider and Neurologist Call non-emergency contact if: you have any medication questions, your symptoms worsen, your pain is not controlled, your pain is worsening, your pain is unusual for you and your pain is concerning for you Follow-up/Referrals: Corina Yusuf DO [Primary Care Provider] - Diet: Carb Consistent or DM2 and Low Sodium (2gm) Addtl Attending Provider Instructions: Please take all medications as instructed on dishcarge instructions below. You are being placed on a new seizure medication to prevent future episodes of your arms symptoms. Your blood pressure was found to be too low to tolerate lisinopril. This medication is very important to take for your heart. 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 It is recommended that you follow-up with your primary care provider within one week of discharge from the hospital to ensure you are doing well on this new medication. You were seen by Dr. Williams Randall from [facility] while in the hospital. Please call the office and schedule a follow-up with him in two months time as a followup from this hospitalization. Your diabetes is very uncontrolled with a recent Hemoglobin A1C of 13.6. Please continue close follow-up with your primary care provider to continue working on getting this down to goal. Your goal HbA1C level is 6.5. It was a pleasure taking care of you! Please call if you have any questions or problems. You can reach a [facility] hospitalist on duty at [facility] 24 hours a day by calling [phone]. Take care of yourself. Aida Lennon DO [facility] Hospitalist Pending Studies at Discharge: No Stand-Alone Forms: [facility] Medications and DC Order Prescriptions: New levetiracetam [Keppra] 500 mg tablet 500 mg PO BID Qty: 60 RF: 1 Continued aspirin [Aspir-81] 81 mg Tablet,Delayed Release (Dr/Ec) 81 mg PO QAM RF: 0 bupropion HCl 150 mg tablet sustained-release 12 hr 150 mg PO BID RF: 0 atorvastatin 80 mg tablet 80 mg PO DAILY RF: 0 metformin 1,000 mg tablet 1,000 mg PO BID RF: 0 clopidogrel 75 mg tablet 75 mg PO DAILY RF: 0 Basaglar KwikPen U-100 Insulin 100 unit/mL (3 mL) insulin pen 30 unit SUBCUT DAILY RF: 0 metoprolol succinate 100 mg tablet extended release 24 hr 100 mg PO BID RF: 0 ergocalciferol (vitamin D2) [Vitamin D2] 1,250 mcg (50,000 unit) capsule 50,000 unit PO WK RF: 0 insulin aspart U-100 [Novolog Flexpen U-100 Insulin] 100 unit/mL (3 mL) insulin pen 0 unit SUBCUT AC RF: 0 Discontinued lisinopril 2.5 mg Tablet 2.5 mg PO QAM Qty: 30 RF: 1 Discharge Orders: Discharge Order (Routine); Ordered 03/31/20 Ordered By: Aida Lennon Admission Data Admit Date/Time: 03/31/20 01:17 Attending Provider: Aida Lennon Admit Provider: James Van Primary Care Provider: Corina Yusuf Other Providers: James Van ; Sherrie Beasley John E ; Sherrie Sherman ; Xander Randall Other Interventions: Discharge Summary Assessment (RN) Last Done: 03/31/20 16:59
[2020-03-31] MEDS ORDERED: INSULIN GLARGINE SOLOSTAR 100 UNITS/ML 3 ML PEN SQ SCH (21:00)
[2020-04-01] MEDS ORDERED: ASPIRIN 81 MG ECTAB PO SCH (09:00)
== END 2020-03-31 17:59 | disposition home or self-care (01) ==
LOC: 2N 22:51 → ED 22:51 → 2N 03-31 02:08

== ENCOUNTER 2021-11-26 00:06 | Observation (INO) ==
--- NOTE | 2021-11-26 00:44 | Emergency Department Note ---
History of Present Illness General Chief complaint: Swelling/Edema to Extremity Stated complaint: LEGS SWELLING & WEAKNESS W/ FACE NUMBNESS Time Seen by Provider: 11/26/21 00:20 Source: patient Mode of arrival: ambulatory Limitations: no limitations History of Present Illness Provider complaint: memory issues, leg swelling Onset (ago): day(s) 1 Treatments prior to arrival: none This is a 51-year-old female presents emergency department complaining of memory issues and leg swelling. Patient does have significant past medical history including CAD status post stenting as well as prior CVA x2. Patient states she had recently been having trouble sleeping as well as difficulty controlling her blood sugar levels is a diabetic and so she saw her PCP on Monday. She states at that time clonidine was added to her medication regimen and her Wellbutrin was increased. Patient states today while at work she noticed difficulty with her memory including being unable to recall the names of the people she is worked with for a long time and sees every day. She states she also noticed lower extremity swelling. Patient states she did feel slightly lightheaded/dizzy today, no syncopal events. She denies headaches, vision changes, nausea/vomiting, chest pain, palpitations, trouble breathing. No recent change in bowel or bladder function. She denies any history of kidney problems. 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 Home Medications Medication Instructions Recorded Confirmed Type aspirin 81 mg tablet,delayed 81 mg PO QAM 05/10/18 03/31/20 History release (Aspir-) atorvastatin 80 mg tablet 80 mg PO DAILY 03/30/20 03/31/20 History bupropion HCl 150 mg tablet,12 hr 150 mg PO BID 03/30/20 03/31/20 History sustained-release clopidogrel 75 mg tablet 75 mg PO DAILY 03/30/20 03/31/20 History insulin glargine 100 unit/mL (3 30 unit SUBCUT DAILY 03/30/20 03/31/20 History mL) subcutaneous pen (Basaglar KwikPen U-100 Insulin) metformin 1,000 mg tablet 1,000 mg PO BID 03/30/20 03/31/20 History ergocalciferol (vitamin D2) 1,250 50,000 unit PO WK 03/31/20 03/31/20 History mcg (50,000 unit) capsule (Vitamin D2) insulin aspart U-100 100 unit/mL 0 unit SUBCUT AC 03/31/20 03/31/20 History (3 mL) subcutaneous pen (Novolog Flexpen U-100 Insulin aspart) levetiracetam 500 mg tablet 500 mg PO BID #60 tab 03/31/20 Rx (Keppra) metoprolol succinate 100 mg 100 mg PO BID 03/31/20 03/31/20 History tablet,extended release 24 hr Allergies Allergy/AdvReac Type Severity Reaction Status Date / Time bee venom protein (honey bee) Allergy Severe swelling Verified 03/31/20 00:13 and difficulty breathing Penicillins Allergy Intermediate RASH Verified 03/31/20 00:13 Past Med/Surg History Medical History (Updated 11/27/21 @ 01:52 by Leighann Davis DO) Cardiomyopathy Cerebrovascular disease Concussion CVA (cerebral vascular accident) Diabetes Dizziness Elevated troponin Hyperglycemia due to type 2 diabetes mellitus Hyperlipidemia Left arm weakness Smoker Weakness of both arms Work related injury Surgical History History of tonsillectomy Family History Other Diabetes Social History Smoking Status: Never smoker Tobacco Type: Cigarettes Cigarettes Per Day: 10-20; Second Hand Exposure: No; Hx Alcohol Use: No Hx Substance Use: No Preferred Language: Bel[place]an Communication Ability: Effective Log Scaler Required: No Beliefs That Will Affect Care: None marital status: Single Current Living Situation: Family Current Living Situation Comment: son 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 [employer] How many Children do You have: 1 Other Information That Helps Us Care for You: No Feels Safe at Home: Yes Safety Concerns: Feels Safe At This Time Assistive Devices: None Review of Systems A total of 10 systems reviewed and were otherwise negative All systems reviewed & are unremarkable except as noted in HPI & below Physical Exam Vital Signs Vital Signs - 24 hr 11/26/21 02:36 11/26/21 03:44 Pulse Rate [Apical] 75 73 Pulse Rhythm [Apical] Regular Pulse Strength [Apical] Normal Respiratory Rate 16 16 Respiratory Effort / Characteristics Non-Labored Spontaneous Non-Labored Respiratory Depth Normal Normal Respiratory Pattern Regular Regular Blood Pressure [Right Arm] 131/90 130/81 Blood Pressure Mean [Right Arm] 103 97 Blood Pressure Position [Right Arm] Semi-fowlers Lying Pulse Oximetry 100 99 Oxygen Delivery Method Room Air Room Air GENERAL: alert, well appearing, well nourished, no distress, non-toxic EYE EXAM: normal conjunctiva, PERRL and EOM's grossly intact OROPHARYNX: no exudate, no erythema, lips, buccal mucosa, and tongue normal and mucous membranes are moist NECK: supple, no nuchal rigidity, no adenopathy, non-tender LUNGS: Clear to auscultation. Normal chest wall mechanics, no w/r/r HEART: no murmurs, S1 normal and S2 normal ABDOMEN: abdomen soft, non-tender, normo-active bowel sounds, no masses, no rebound or guarding. BACK: Back is symmetrical on inspection and there is no deformity, no midline tenderness, no CVA tenderness. SKIN: no rashes and no bruising UPPER EXTREMITIES: upper extremities are grossly normal. FROM, nml pulses b/l. LOWER EXTREMITIES: 1+ b/l pitting edema. FROM, nml pulses b/l. NEURO EXAM: Normal sensorium, cranial nerves II-XII grossly intact, normal speech, no gross weakness of arms, no gross weakness of legs. Gross sensation intact. No ataxia. No facial droop. Course Administered Medications Aspirin (Aspirin 81 Mg Ectab) 81 mg PO QAM [facility] Stop: 12/26/21 08:59 Last Admin: 11/26/21 09:12 Dose: 81 mg Documented by: [id number] Atorvastatin Calcium (Atorvastatin 40 Mg Tab) 80 mg PO DAILY [place] Stop: 12/26/21 08:59 Last Admin: 11/26/21 09:12 Dose: 80 mg Documented by: [id number] Bupropion HCl (Bupropion Sr 100 Mg Tabcr) 200 mg PO BID [place] Stop: 12/26/21 08:59 Last Admin: 11/26/21 20:54 Dose: 200 mg Documented by: [id number] Admin: 11/26/21 09:12 Dose: 200 mg Documented by: [id number] Clonidine HCl (Clonidine Hcl 0.1 Mg Tab) 0.1 mg PO BID [place] Stop: 12/26/21 08:59 Last Admin: 11/26/21 20:54 Dose: 0.1 mg Documented by: [id number] Admin: 11/26/21 09:12 Dose: 0.1 mg Documented by: [id number] Clopidogrel Bisulfate (Clopidogrel Bisulfate 75 Mg Tab) 75 mg PO DAILY [facility] Stop: 12/26/21 08:59 Last Admin: 11/26/21 09:13 Dose: 75 mg Documented by: [id number] Insulin Aspart (Insulin Aspart Per Unit) 0 units SC ACHS [facility] Stop: 12/26/21 07:29 Last Admin: 11/26/21 20:54 Dose: 5 units Documented by: [id number] Cosigned by: [id number] Admin: 11/26/21 18:04 Dose: 9 units Documented by: [id number] Cosigned by: [id number] Admin: 11/26/21 12:58 Dose: 10 units Documented by: [id number] Cosigned by: [id number] Admin: 11/26/21 09:07 Dose: 6 units Documented by: [id number] Cosigned by: [id number] Insulin Glargine (Insulin Glargine Solostar 100 Units/Ml 3 Ml Pen) 30 units SC HS [facility] Stop: 12/26/21 20:59 Last Admin: 11/26/21 20:54 Dose: 30 units Documented by: [id number] Cosigned by: [id number] Lisinopril (Lisinopril 2.5 Mg Tab) 2.5 mg PO QAM [facility] Stop: 12/26/21 08:59 Last Admin: 11/26/21 09:12 Dose: 2.5 mg Documented by: [id number] Metoprolol Succinate (Metoprolol Succ 50mg Ext Rel Tab) 100 mg PO BID [facility] Stop: 12/26/21 08:59 Last Admin: 11/26/21 20:55 Dose: 100 mg Documented by: [id number] Admin: 11/26/21 09:12 Dose: 100 mg Documented by: [id number] Discontinued Medications Gadobutrol (Gadobutrol 65ml Vial) 8.5 ml IV ONCE ONE Stop: 11/26/21 08:12 Last Admin: 11/26/21 08:11 Dose: 8.5 ml Documented by: [id number] Sodium Chloride (Nss 1000ml) 1,000 mls @ 125 mls/hr IV .Q8H [facility] Stop: 12/26/21 00:44 Last Infusion: 11/26/21 07:21 Dose: 0 mls/hr Documented by: [id number] Infusion: 11/26/21 06:38 Dose: 125 mls/hr Documented by: [id number] Infusion: 11/26/21 06:25 Dose: 125 mls/hr Documented by: [id number] Admin: 11/26/21 01:26 Dose: 125 mls/hr Documented by: [id number] Magnesium Sulfate 1 gm/ Sodium (Chloride) 102 mls @ 51 mls/hr IV NOW STA Stop: 11/26/21 03:48 Last Infusion: 11/26/21 04:43 Dose: 0 mls/hr Documented by: [id number] Admin: 11/26/21 02:40 Dose: 51 mls/hr Documented by: [id number] Thiamine HCl 200 mg/ Sodium (Chloride) 52 mls @ 208 mls/hr IV NOW STA Stop: 11/26/21 05:36 Last Admin: 11/26/21 11:35 Dose: Not Given Documented by: [id number] Sodium Chloride (Nss 1000ml) 1,000 mls @ 100 mls/hr IV .Q10H [facility] Stop: 11/26/21 16:16 Last Infusion: 11/26/21 15:28 Dose: 0 mls/hr Documented by: [id number] Admin: 11/26/21 06:23 Dose: 100 mls/hr Documented by: [id number] Insulin Human Regular (Novolin-R Insulin Per Unit Charge) 8 units SC NOW STA Stop: 11/26/21 01:47 Last Admin: 11/26/21 02:37 Dose: 8 units Documented by: [id number] Cosigned by: [id number] Insulin Human Regular (Novolin-R Insulin Per Unit Charge) 8 units SC NOW STA Stop: 11/26/21 04:12 Last Admin: 11/26/21 04:29 Dose: 8 units Documented by: [id number] Cosigned by: [id number] Ioversol (Optiray 320 125ml) 119 ml IV ONCE ONE Stop: 11/26/21 02:09 Last Admin: 11/26/21 02:13 Dose: 119 ml Documented by: [id number] Medical Decision Making Differential Diagnosis Differential Diagnosis includes but is not limited to ischemic Stroke, hemorrhagic stroke, bells palsy, mass, neoplasm, migraine headache, seizure, subarachnoid hemorrhage, TIA, and transient global amnesia. Medical Records Attestation: I reviewed the patient's medical records. Home Medications Current Medication List: was personally reviewed by me Laboratory Data Attestation: I reviewed the patient's lab results. Result diagrams: 11/26/21 01:03 11/26/21 01:03 Lab Results 11/26/21 11/26/21 11/26/21 Range/Units 01:03 01:03 01:03 WBC 5.58 (4.8-10.8) K/uL RBC 4.09 L (4.2-5.4) M/uL Hgb 11.8 L (12.0-16.0) g/dL Hct 35.3 L (37-47) % MCV 86.3 (80-100) fL MCH 28.9 (25-34) pg MCHC 33.4 (32-36) g/dL RDW Std Deviation 40.3 (36.4-46.3) fL RDW Coeff of Brea 12.8 (11.5-14.5) % Plt Count 243 (130-400) K/uL MPV 9.9 (7.4-10.4) fL Immature Gran % (Auto) 0.2 % Neut % (Auto) 50.6 % Lymph % (Auto) 38.4 % [place] % (Auto) 8.1 % Eos % (Auto) 2.3 % Baso % (Auto) 0.4 % Neut # (Auto) 2.83 (1.4-6.5) K/uL Lymph # (Auto) 2.14 (1.2-3.4) K/uL [place] # (Auto) 0.45 (0.11-0.59) K/uL Eos # (Auto) 0.13 (0-0.5) K/uL Baso # (Auto) 0.02 (0-0.2) K/uL Immature Gran # (Auto) 0.01 (0.00-0.02) K/uL Sodium 131 L (136-145) mmol/L Potassium 4.2 (3.5-5.1) mmol/L Chloride 100 (98-107) mmol/L Carbon Dioxide 23 (21-32) mmol/L Anion Gap 8 (3-11) BUN 18 (6-23) mg/dl Creatinine 0.68 (0.6-1.2) mg/dl Est Cr Clr Drug Dosing 104.7 ml/min Est GFR ( Amer) 116.6 ml/min Est GFR (Non-Af Amer) 100.6 ml/min BUN/Creatinine Ratio 26.5 H (10-20) Glucose 464 H* (70-99(Fasting)) mg/dl POC Glucose (70-99) mg/dl Calcium 9.3 (8.5-10.1) mg/dl Magnesium 1.5 L (1.7-2.4) mg/dl Total Bilirubin 0.4 (0.2-1.0) mg/dl AST 16 (13-39) U/L ALT 19 (7-52) U/L Alkaline Phosphatase 82 (34-104) U/L Troponin I High Sens 3.0 (0-14) pg/ml B-Natriuretic Peptide (0-100) pg/ml Total Protein 6.4 (6.0-8.3) gm/dl Albumin 3.8 (3.4-5.0) gm/dl Globulin 2.6 (2.5-4.0) gm/dl Albumin/Globulin Ratio 1.5 (0.9-2) Lipase 49 (11-82) U/L TSH 3.463 (0.300-4.500) uIu/ml Urine Color Urine Appearance (Clear) Urine pH (4.5-7.5) Ur Specific [place] (1.000-1.030) Urine Protein (Negative) Urine Glucose (UA) (Negative) Urine Ketones (Negative) Urine Blood (Negative) Urine Nitrite (Negative) Urine Bilirubin (Negative) Urine Urobilinogen (Negative) Ur Leukocyte Esterase (Negative) SARS-CoV-2, RNA, NAAT (NEGATIVE) 11/26/21 11/26/21 11/26/21 Range/Units 01:03 02:18 03:19 WBC (4.8-10.8) K/uL RBC (4.2-5.4) M/uL Hgb (12.0-16.0) g/dL Hct (37-47) % MCV (80-100) fL MCH (25-34) pg MCHC (32-36) g/dL RDW Std Deviation (36.4-46.3) fL RDW Coeff of Brea (11.5-14.5) % Plt Count (130-400) K/uL MPV (7.4-10.4) fL Immature Gran % (Auto) % Neut % (Auto) % Lymph % (Auto) % [place] % (Auto) % Eos % (Auto) % Baso % (Auto) % Neut # (Auto) (1.4-6.5) K/uL Lymph # (Auto) (1.2-3.4) K/uL [place] # (Auto) (0.11-0.59) K/uL Eos # (Auto) (0-0.5) K/uL Baso # (Auto) (0-0.2) K/uL Immature Gran # (Auto) (0.00-0.02) K/uL Sodium (136-145) mmol/L Potassium (3.5-5.1) mmol/L Chloride (98-107) mmol/L Carbon Dioxide (21-32) mmol/L Anion Gap (3-11) BUN (6-23) mg/dl Creatinine (0.6-1.2) mg/dl Est Cr Clr Drug Dosing ml/min Est GFR ( Amer) ml/min Est GFR (Non-Af Amer) ml/min BUN/Creatinine Ratio (10-20) Glucose (70-99(Fasting)) mg/dl POC Glucose 367 H* (70-99) mg/dl Calcium (8.5-10.1) mg/dl Magnesium (1.7-2.4) mg/dl Total Bilirubin (0.2-1.0) mg/dl AST (13-39) U/L ALT (7-52) U/L Alkaline Phosphatase (34-104) U/L Troponin I High Sens (0-14) pg/ml B-Natriuretic Peptide 82 (0-100) pg/ml Total Protein (6.0-8.3) gm/dl Albumin (3.4-5.0) gm/dl Globulin (2.5-4.0) gm/dl Albumin/Globulin Ratio (0.9-2) Lipase (11-82) U/L TSH (0.300-4.500) uIu/ml Urine Color Yellow Urine Appearance Clear (Clear) Urine pH 7.5 (4.5-7.5) Ur Specific [place] 1.036 H (1.000-1.030) Urine Protein Negative (Negative) Urine Glucose (UA) 3+ H (Negative) Urine Ketones Trace H (Negative) Urine Blood Negative (Negative) Urine Nitrite Negative (Negative) Urine Bilirubin Negative (Negative) Urine Urobilinogen Negative (Negative) Ur Leukocyte Esterase Negative (Negative) SARS-CoV-2, RNA, NAAT (NEGATIVE) 11/26/21 11/26/21 Range/Units 04:20 04:23 WBC (4.8-10.8) K/uL RBC (4.2-5.4) M/uL Hgb (12.0-16.0) g/dL Hct (37-47) % MCV (80-100) fL MCH (25-34) pg MCHC (32-36) g/dL RDW Std Deviation (36.4-46.3) fL RDW Coeff of Brea (11.5-14.5) % Plt Count (130-400) K/uL MPV (7.4-10.4) fL Immature Gran % (Auto) % Neut % (Auto) % Lymph % (Auto) % [place] % (Auto) % Eos % (Auto) % Baso % (Auto) % Neut # (Auto) (1.4-6.5) K/uL Lymph # (Auto) (1.2-3.4) K/uL [place] # (Auto) (0.11-0.59) K/uL Eos # (Auto) (0-0.5) K/uL Baso # (Auto) (0-0.2) K/uL Immature Gran # (Auto) (0.00-0.02) K/uL Sodium (136-145) mmol/L Potassium (3.5-5.1) mmol/L Chloride (98-107) mmol/L Carbon Dioxide (21-32) mmol/L Anion Gap (3-11) BUN (6-23) mg/dl Creatinine (0.6-1.2) mg/dl Est Cr Clr Drug Dosing ml/min Est GFR ( Amer) ml/min Est GFR (Non-Af Amer) ml/min BUN/Creatinine Ratio (10-20) Glucose (70-99(Fasting)) mg/dl POC Glucose 318 H* (70-99) mg/dl Calcium (8.5-10.1) mg/dl Magnesium (1.7-2.4) mg/dl Total Bilirubin (0.2-1.0) mg/dl AST (13-39) U/L ALT (7-52) U/L Alkaline Phosphatase (34-104) U/L Troponin I High Sens (0-14) pg/ml B-Natriuretic Peptide (0-100) pg/ml Total Protein (6.0-8.3) gm/dl Albumin (3.4-5.0) gm/dl Globulin (2.5-4.0) gm/dl Albumin/Globulin Ratio (0.9-2) Lipase (11-82) U/L TSH (0.300-4.500) uIu/ml Urine Color Urine Appearance (Clear) Urine pH (4.5-7.5) Ur Specific [place] (1.000-1.030) Urine Protein (Negative) Urine Glucose (UA) (Negative) Urine Ketones (Negative) Urine Blood (Negative) Urine Nitrite (Negative) Urine Bilirubin (Negative) Urine Urobilinogen (Negative) Ur Leukocyte Esterase (Negative) SARS-CoV-2, RNA, NAAT NEGATIVE (NEGATIVE) Imaging Data Radiologist's Impression: CT head: Prior 03/30/2020. No evidence of acute intracranial abnormality. Stable right parietal encephalomalacia. Radiologist: Wale Medellin MD CTA head: Prior head CT today. Prior CTA 03/30/2020. No occlusion or severe stenosis. No aneurysm or dissection. Radiologist: Arlin Medellin MD CTA neck: Prior CTA neck 03/30/2020. No occlusion or severe stenosis. No aneurysm or dissection. Carotid bulb calcifications. Heterogenous left thyroid nodule similar to prior. Radiologist: Arlin Medellin MD ECG Data Attestation: I personally reviewed and interpreted this ECG as follows: Indication: + other Rate (beats per minute): 86 Rhythm: + normal sinus ECG Intervals/blocks: + Normal QRS and + Normal QT ECG [place]: + Normal ECG ST segments: + Normal ST segments MDM Narrative An order was placed for continuous cardiac monitoring. The monitor shows a rate of _80_ with _normal sinus_ rhythm. This is a 51-year-old female presents emergency department with concern for acute memory impairment this afternoon. Patient does have prior history of stroke and heart disease. Patient also notes lower extremity edema. Patient did have recent medication changes although on review of these in pharmacy database, no mention of memory difficulty or lower extremity edema listed in AD Rs. Labs drawn and sent as a precaution and patient sent for CT imaging as part of possible stroke evaluation. Labs and CT reassuring. Patient was noted to be hyperglycemic and states she has had difficulty controlling her glucose at home. No evidence of DKA. No ectopy or dysrhythmia noted on telemetry. Patient was afebrile and hemodynamically stable throughout. No obvious etiology for the lower extremity edema at this time. No evidence of CHF or SHEELA. I did discuss all results with patient at bedside. We discussed additional inpatient evaluation and management, she verbalized understanding and was in agreement. Impression & Plan Acute memory impairment, Hyperglycemia due to type 2 diabetes mellitus, Bilateral edema of lower extremity Discharge Plan Visit Data Chief Complaint: Swelling/Edema to Extremity Stated Complaint: LEGS SWELLING & WEAKNESS W/ FACE NUMBNESS ED Provider: Leighann Davis Discharge Problem: Acute memory impairment, Hyperglycemia due to type 2 diabetes mellitus, Bilateral edema of lower extremity Patient Disposition: Admitted As Inpatient Discharge Instructions Interventions: ED Discharge Assessment Last Done: 11/26/21 06:03
[2021-11-26] MEDS ORDERED: SODIUM CHLORIDE 0.9% 1000ML 1,000 ML IV SCH ×2 (00:45→06:17)
[2021-11-26 01:22] LABS: Basophils # (auto) 0.02 K/uL (0-0.2); Basophils % (auto) 0.4 %; Eosinophils # (auto) 0.13 K/uL (0-0.5); Eosinophils % (auto) 2.3 %; Hematocrit (blood only) 35.3 % (37-47); Hemoglobin 11.8 g/dL (12.0-16.0); Immature Granulocytes # (auto) 0.01 K/uL (0.00-0.02); Immature Granulocytes % (auto) 0.2 %; Lymphocytes # (auto) 2.14 K/uL (1.2-3.4); Lymphocytes % (auto) 38.4 %; Mean Corpuscular Hemoglobin 28.9 pg (25-34); Mean Corpuscular Hgb Conc 33.4 g/dL (32-36); Mean Corpuscular Volume 86.3 fL (80-100); Mean Platelet Volume 9.9 fL (7.4-10.4); Monocytes # (auto) 0.45 K/uL (0.11-0.59); Monocytes % (auto) 8.1 %; Neutrophils # (auto) 2.83 K/uL (1.4-6.5); Neutrophils % (auto) 50.6 %; Platelet Count 243 K/uL (130-400); RDW Coefficient of Variation 12.8 % (11.5-14.5); RDW Standard Deviation 40.3 fL (36.4-46.3); Red Blood Count 4.09 M/uL (4.2-5.4); White Blood Count 5.58 K/uL (4.8-10.8)
[2021-11-26 01:23] LABS: Appearance Urine Clear (Clear); Bilirubin Urine Negative (Negative); Blood Urine Negative (Negative); Color Urine Yellow; Glucose Urine UA 3+ (Negative); Ketones Urine Trace (Negative); Leukocyte Esterase Urine Negative (Negative); Nitrite Urine Negative (Negative); Protein Urine Negative (Negative); Specific Gravity Urine 1.036 (1.000-1.030); Urobilinogen Urine Negative (Negative); pH Urine 7.5 (4.5-7.5)
[2021-11-26 01:45] LABS: Albumin Globulin Ratio 1.5 (0.9-2); Albumin Level 3.8 gm/dl (3.4-5.0); BUN Creatinine Ratio 26.5 (10-20); Bilirubin,Total 0.4 mg/dl (0.2-1.0); Calcium 9.3 mg/dl (8.5-10.1); Creatinine Clr Calc Pharmacy 104.7 ml/min; Est GFR (African American) 116.6 ml/min; Est GFR (Non-African American) 100.6 ml/min; Globulin 2.6 gm/dl (2.5-4.0); Magnesium 1.5 mg/dl (1.7-2.4); Potassium 4.2 mmol/L (3.5-5.1); Total Protein 6.4 gm/dl (6.0-8.3)
[2021-11-26] MEDS ORDERED: NovoLIN-R INSULIN PER UNIT CHARGE SC STA ×2 (01:46→04:11)
[2021-11-26] MEDS ORDERED: MAGNESIUM SULFATE 50% 1 GM in 0.9 % SODIUM CHLORIDE 100 ML IV STA (01:49)
[2021-11-26] MEDS ORDERED: OPTIRAY 320 125ml IV ONE (02:08)
[2021-11-26] MEDS ORDERED: THIAMINE HCL 200 MG in SODIUM CHLORIDE 0.9% 50 ML IV STA (05:35)
[2021-11-26] MEDS ORDERED: ACETAMINOPHEN 325 MG TAB PO PRN (06:17)
[2021-11-26] MEDS ORDERED: ONDANSETRON INJ 2 MG/ML 2 ML VIAL IV PRN (06:17)
[2021-11-26] MEDS ORDERED: PHARMACIST DISCHARGE MED REC CONSULT PRN (06:17)
[2021-11-26] MEDS ORDERED: POLYETHYLENE (MIRALAX) 17 GM PACK PO PRN (06:17)
[2021-11-26] MEDS ORDERED: NITROGLYCERIN SL 0.4 MG/TAB TAB SL PRN (06:17)
--- NOTE | 2021-11-26 06:35 | CT Scan Report ---
CT OF THE HEAD WITHOUT CONTRAST CLINICAL HISTORY: memory issues, hx CVA COMPARISON STUDY: Head CT and CTA of the head March 30, 2020. MRI brain March 31, 2020. CT DOSE: 1159.72 mGy.cm TECHNIQUE: Helical axial images of the head were obtained without IV contrast. Automated exposure con trol was utilized for the study. A dose lowering technique was utilized adhering to the principles o f ALARA. FINDINGS: Please note that the CTA of the head were reported separately. No acute intracranial hemorr juana, midline shift or mass effect is present. The ventricular system is unremarkable. A focus of enc ephalomalacia within the right parietal lobe is unchanged and consistent with old infarct. The basal cisterns are patent. No extra-axial collections are present. There are no findings to suggest acute d ural sinus thrombosis or acute territorial infarct. No significant calvarial abnormalities are presen t. Visualized portions of the sinuses and mastoid air cells are clear. IMPRESSION: No acute intracranial findings. No change in appearance of the brain. Old right parietal infarct. ACT 112: Negative or not required by law. Electronically signed by: oJna Mckeon M.D. 11/26/2021 6:34 AM
--- NOTE | 2021-11-26 06:50 | XRay Report ---
XR chest 1V portable HISTORY: 51 years-old Female edema acute shortness of breath COMPARISON: Chest radiograph 03/30/2020 TECHNIQUE: Portable AP view of the chest FINDINGS: Cardiomediastinal and hilar silhouettes are within normal limits. No pneumothorax, pleural effusion, airspace consolidation or overt pulmonary edema. Mild subsegmental linear scarring versus atelectasis of the lateral left lung base. Mild degenerative changes of the shoulders and spine. IMPRESSION: No acute process. ACT 112: Negative or not required by law. The above report was generated using voice recognition software. It may contain grammatical, syntax o r spelling errors. Electronically signed by: Bala Gutierrez M.D. 11/26/2021 6:48 AM
--- NOTE | 2021-11-26 07:24 | CT Scan Report ---
CT angio neck with con, CT angio head w con CLINICAL HISTORY: 51 years-old Female with memory issues, hx CVA. Acute strokelike symptoms COMPARISON STUDY: Head CT of same day, brain MRI 03/31/2020, CTA head and neck 03/30/2020 TECHNIQUE: Following the IV administration of 119 mL of Optiray, CT angiogram of the head and neck wa s performed from the aortic arch to the skull apex. Images are reviewed in the axial, sagittal, and c oronal planes. 3-D MIPS images are created and assessed. IV contrast was administered without complic ation. All measurements were calculated based on NASCET criteria. A dose lowering technique was util ized adhering to the principles of ALARA. FINDINGS: Three-vessel morphology of the thoracic aortic arch. Patency of the innominate and imaged subclavian arteries. The common carotid arteries are patent. Moderate atherosclerotic plaque of the right greate r than left carotid bulbs results in less than 50% stenosis bilaterally. The anterior and middle cere bral arteries are patent. Codominant and patent vertebral arteries. Mild atherosclerotic plaque at th e origin of the left vertebral artery results in mild stenosis. The basilar and posterior cerebral ar teries are patent. No aneurysm, dissection, high-grade stenosis or arterial occlusion. The cerebral v enous sinuses are patent. Chronic right parietal infarct. There is no abnormal intracranial enhanceme nt identified. There is no pneumothorax. The lung apices appear clear. Left-sided thyroid nodules measure up to 1.7 cm, unchanged from the 2019 comparison. Unremarkable soft tissues. Degenerative changes of the spine. IMPRESSION: 1. No aneurysm, dissection, high-grade stenosis or arterial occlusion. 2. Moderate atherosclerotic plaque of the carotid bulbs, right greater than left results in less than 50% stenosis bilaterally. ACT 112: Negative or not required by law. The above report was generated using voice recognition software. It may contain grammatical, syntax o r spelling errors. Electronically signed by: Bala Gutierrez M.D. 11/26/2021 7:22 AM
[2021-11-26] MEDS ORDERED: GADOBUTROL 65ML VIAL IV ONE (08:11)
--- NOTE | 2021-11-26 08:26 | Magnetic Resonance Report ---
MR brain wo/w con CLINICAL HISTORY: stroke like symptoms TECHNIQUE: Multiplanar and multisequence MR images of the brain were obtained prior to and following administration of gadolinium contrast. Comparison: Comparison is made to MRI brain 03/31/2020 FINDINGS: No abnormal restricted diffusion is identified. Redemonstration of encephalomalacia from a old right parietal infarct. The ventricular system is normal in appearance. There are no masses, mass effect, o r midline shift. No abnormal enhancement is seen. There is no evidence of acute intraparenchymal hemo rrhage. No extra axial fluid collections are seen. The corpus callosum, pituitary gland, and cerebell ar tonsils appear grossly unremarkable. Flow voids of the major intracranial arterial vessels are identified. The imaged portions of the para nasal sinuses, mastoid air cells, and orbits are unremarkable. IMPRESSION: Redemonstration of encephalomalacia from an old right parietal infarct. No new infarct or hemorrhage is seen. ACT 112: Negative or not required by law. Electronically signed by: Richie Brown M.D. 11/26/2021 8:24 AM
[2021-11-26] MEDS: INSULIN ASPART PER UNIT SC SCH ×4 (09:07→20:54)
[2021-11-26] MEDS: ATORVASTATIN 40 MG TAB PO SCH (09:12)
[2021-11-26] MEDS: METOPROLOL SUCC 50MG EXT REL TAB PO SCH ×2 (09:12→20:55)
[2021-11-26] MEDS: lisinopril 2.5 MG TAB PO SCH (09:12)
[2021-11-26] MEDS: buPROPion SR 100 MG TABCR PO SCH ×2 (09:12→20:54)
[2021-11-26] MEDS: ASPIRIN 81 MG ECTAB PO SCH (09:12)
[2021-11-26] MEDS: cloNIDine HCL 0.1 MG TAB PO SCH ×2 (09:12→20:54)
[2021-11-26] MEDS: CLOPIDOGREL BISULFATE 75 MG TAB PO SCH (09:13)
--- NOTE | 2021-11-26 11:54 | Neurology Consultation ---
Date of Consultation November 26, 2021 Assessment & Plan (1) Confusion and disorientation: 1. MRI with no acute infarct 2. CTA head and neck - no stenosis or occlusion 3. continue plavix 75 mg and aspirin 81 mg daily- stent placement 4. TTE if not already done 5. optimize HTN, HLD, DM LDL <70 6. EEG- r/o seizure focus- normal 7. blood pressure is on the low side- orthostatics if not already done 8. PT /OT discharge needs. no neurology follow up at this time but if symptoms return or change will see her PRN we will sign off for now call with questions concern Supervising Physician Co-Signing Physician Notes Patient was seen and examined and discussed with Sherrie Beasley PA-C. Admitted with transient memory loss at work. Could not remember names. No LOC. No tongue biting. No Hx of seizures. Has history of chronic right MCA ischemic stroke on ASA and Plavix. Routine reviewed and showed no focal slowing or epileptiform discharges. Possible mild epsode of TGA. Continue home medicaitones. Follow up with Neuro PRN. I provided her with my contact information and ask her to update if symptoms should occur again. I do not believe this was a TIA. History of Present Illness Reason for Consultation: stroke like symptoms Requesting Physician: Subhash Clark MD Attending Physician: Subhash Clark MD History of Present Illness eJss is a 51 year old female who presents to [facility] ED 11/26/21 with memory issues and leg swelling.Her PMH-includes CAD status post stenting as well as prior CVA x2, HLD, DM 2. She had recently been having trouble sleeping as well as difficulty controlling her blood sugar levels is a diabetic and so she saw her PCP on Monday and clonidine was added to her medication regimen and her Wellbutrin was increased. At work today she noticed difficulty with her memory including being unable to recall the names of the people she is worked with for a long time and sees every day and lower extremity swelling. during the last admission I guess there was a question whether she had a seizure. She now feels back to her baseline. denies light headed dizziness, CP, SOB, abdominal pain, N, V, vision changes headaches Allergies Allergy/AdvReac Type Severity Reaction Status Date / Time bee venom protein (honey bee) Allergy Severe swelling Verified 03/31/20 00:13 and difficulty breathing Penicillins Allergy Intermediate RASH Verified 03/31/20 00:13 Home Medications Medication Instructions Recorded Confirmed Type aspirin 81 mg tablet,delayed 81 mg PO QAM 05/10/18 03/31/20 History release (Aspir-) atorvastatin 80 mg tablet 80 mg PO DAILY 03/30/20 03/31/20 History bupropion HCl 150 mg tablet,12 hr 150 mg PO BID 03/30/20 03/31/20 History sustained-release clopidogrel 75 mg tablet 75 mg PO DAILY 03/30/20 03/31/20 History insulin glargine 100 unit/mL (3 30 unit SUBCUT DAILY 03/30/20 03/31/20 History mL) subcutaneous pen (Basaglar KwikPen U-100 Insulin) metformin 1,000 mg tablet 1,000 mg PO BID 03/30/20 03/31/20 History ergocalciferol (vitamin D2) 1,250 50,000 unit PO WK 03/31/20 03/31/20 History mcg (50,000 unit) capsule (Vitamin D2) insulin aspart U-100 100 unit/mL 0 unit SUBCUT AC 03/31/20 03/31/20 History (3 mL) subcutaneous pen (Novolog Flexpen U-100 Insulin aspart) levetiracetam 500 mg tablet 500 mg PO BID #60 tab 03/31/20 Rx (Keppra) metoprolol succinate 100 mg 100 mg PO BID 03/31/20 03/31/20 History tablet,extended release 24 hr Patient History Medical History (Updated 11/26/21 @ 12:04 by Sherrie Beasley PA-C) Cardiomyopathy Cerebrovascular disease Concussion CVA (cerebral vascular accident) Diabetes Dizziness Elevated troponin Hyperglycemia due to type 2 diabetes mellitus Hyperlipidemia Left arm weakness Smoker Weakness of both arms Work related injury Surgical History History of tonsillectomy Family History Other Diabetes Social History Smoking Status: Never smoker Tobacco Type: Cigarettes Cigarettes Per Day: 10-20; Second Hand Exposure: No; Hx Alcohol Use: No Hx Substance Use: No Preferred Language: Ukrainian Communication Ability: Effective 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 Beliefs That Will Affect Care: None marital status: Single Current Living Situation: Family Current Living Situation Comment: son 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 [employer] How many Children do You have: 1 Other Information That Helps Us Care for You: No Feels Safe at Home: Yes Safety Concerns: Feels Safe At This Time Assistive Devices: None Review of Systems Review of Systems: All systems reviewed & are unremarkable except as noted in HPI & below Physical Exam Physical Exam: Physical Exam: Constitutional: appearance nourished, healthy and normal Ears, Nose, Mouth and Throat: mucous membranes moist, no injection and skin normal, eyes normal Cardiovascular: normal S-1 and S-2 and regular rate and rhythm Respiratory: clear to auscultation (CTA) and no rales, rhonchi or wheeze Musculoskeletal: no peripheral edema and good distal pulses Skin: no stigmata of neurocutaneous disease noted and normal and intact Eyes: extraocular muscles intact (EOMI) and pupils equal, round and reactive to light (PERRL) NEUROLOGIC EXAMINATION: Mental status: Alert and interactive Oriented to full date and location Oriented to person Speech fluent with no evidence of aphasia Cranial Nerves smile eye brow raise symmetric Sensory: intact to light cool touch, pedel pulses + Coordination: finger to nose intact heel to chapin intact Gait/Stance: Posture normal. Gait normal: with steady with steps, base, turning, and tandem gait. Motor: Negative for pronator drift of out stretched arms with eyes closed. 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, hip flex 5/5 bilaterally Results & Data ([facility]) Vital Signs (Past 12 Hours) Vital Signs Temp Pulse Pulse Resp BP BP BP 11/26/21 10:50 36.5 C 70 16 98/64 L 11/26/21 08:24 75 11/26/21 06:41 36.4 C L 70 18 133/86 11/26/21 06:17 11/26/21 06:03 79 16 99/68 L 11/26/21 03:44 73 16 130/81 11/26/21 02:36 75 16 131/90 11/26/21 00:48 36.9 C 81 16 131/90 11/26/21 00:08 36.2 C L 83 20 119/79 Pulse Ox Pulse Ox 05/13/22 10:50 94 11/26/21 08:24 11/26/21 06:41 99 11/26/21 06:17 99 11/26/21 06:03 100 11/26/21 03:44 99 11/26/21 02:36 100 11/26/21 00:48 98 11/26/21 00:08 97 Laboratory Results Abnormal lab results 11/26/21 11/26/21 11/26/21 Range/Units 01:03 01:03 01:03 RBC 4.09 L (4.2-5.4) M/uL Hgb 11.8 L (12.0-16.0) g/dL Hct 35.3 L (37-47) % Sodium 131 L (136-145) mmol/L BUN/Creatinine Ratio 26.5 H (10-20) Glucose 464 H* (70-99(Fasting)) mg/dl POC Glucose (70-99) mg/dl Magnesium 1.5 L (1.7-2.4) mg/dl Ur Specific [place] 1.036 H (1.000-1.030) Urine Glucose (UA) 3+ H (Negative) Urine Ketones Trace H (Negative) 11/26/21 11/26/21 11/26/21 Range/Units 03:19 04:20 05:48 RBC (4.2-5.4) M/uL Hgb (12.0-16.0) g/dL Hct (37-47) % Sodium (136-145) mmol/L BUN/Creatinine Ratio (10-20) Glucose (70-99(Fasting)) mg/dl POC Glucose 367 H* 318 H* 259 H (70-99) mg/dl Magnesium (1.7-2.4) mg/dl Ur Specific [place] (1.000-1.030) Urine Glucose (UA) (Negative) Urine Ketones (Negative) 11/26/21 11/26/21 Range/Units 08:37 11:44 RBC (4.2-5.4) M/uL Hgb (12.0-16.0) g/dL Hct (37-47) % Sodium (136-145) mmol/L BUN/Creatinine Ratio (10-20) Glucose (70-99(Fasting)) mg/dl POC Glucose 177 H 184 H (70-99) mg/dl Magnesium (1.7-2.4) mg/dl Ur Specific [place] (1.000-1.030) Urine Glucose (UA) (Negative) Urine Ketones (Negative) Diagnostic Findings MRI brain-Redemonstration of encephalomalacia from an old right parietal infarct. No new infarct or hemorrhage is seen. CT had-No acute intracranial findings. No change in appearance of the brain. Old right parietal infarct. CTA head/neck-. No aneurysm, dissection, high-grade stenosis or arterial occlusion. . Moderate atherosclerotic plaque of the carotid bulbs, right greater than left results in less than 50% stenosis bilaterally. EEG normal TTE - pending read
--- NOTE | 2021-11-26 12:32 | History and Physical Report ---
DATE OF ADMISSION: 11/26/2021. CHIEF COMPLAINT: Stroke-like symptoms, lower extremity edema. HISTORY OF PRESENT ILLNESS: A 51-year-old female with past medical history significant for type 2 diabetes, hyperlipidemia, history of right CVA, history of CAD, status post stent, history of tobacco abuse, vitamin D deficiency, presents with stroke-like symptoms. The patient says yesterday while she was at work, she was not remembering the names, which she is familiar with and when she came home, she noticed some swelling in the lower extremity and decided to come to the hospital. Recently, her family doctor increased Wellbutrin dose from 150 to 200 mg p.o. b.i.d. and also clonidine 0.1 mg p.o. b.i.d. was added because of insomnia and hot flashes. She was feeling dizziness for the last couple of days, has some chest pressure. She has chronic shortness of breath. Denies any headache. Has some mild dizziness, no blurred visions, has some runny nose. No sore throat, no cough, no difficulty swallowing. Appetite is okay. Was nauseous earlier while she was coming to the hospital. No abdominal pain. Normal bowel and bladder movements. Denies any blood in stool or black stools. Ambulating okay and climbing steps okay. Hemodynamically stable. ALLERGIES: BEE VENOM AND PENICILLINS. PAST MEDICAL HISTORY: As mentioned above. PAST SURGICAL HISTORY: Cardiac catheterization, dental surgery, tonsillectomy. MEDICATIONS: As per [facility], the patient is on Basaglar insulin 40 units subcutaneous at bedtime, bupropion SR 200 mg p.o. b.i.d., clonidine 0.1 mg p.o. b.i.d., NovoLog FlexPen sliding scale, Plavix 75 mg p.o. daily, metformin 1000 mg p.o. b.i.d., atorvastatin 80 mg p.o. daily, lisinopril 2.5 mg p.o. daily, metoprolol succinate 100 mg p.o. b.i.d., vitamin D 50,000 units p.o. weekly, aspirin 81 mg p.o. daily, Nitrostat 0.4 mg sublingual p.r.n., vitamin B12 1000 mcg p.o. daily. FAMILY HISTORY: Significant for maternal aunt has breast cancer, paternal grandmother has breast cancer, maternal aunt has diabetes, maternal grandmother has diabetes, mother has diabetes, father has hypertension, paternal grandfather has heart transplant. SOCIAL HISTORY: Single. Former smoker, quit in 2019, smoked half pack a day for 27 years. Alcohol rarely. No drug use. REVIEW OF SYSTEMS: As per HPI. Rest of review of systems is negative. PHYSICAL EXAMINATION: GENERAL: The patient is obese, not in acute distress. VITAL SIGNS: Temperature 36.9, pulse 73, respiratory rate 16, blood pressure 130/81, oxygen 99% on room air. HEENT: Pupils equal, round and reactive to light. Extraocular muscles intact. Oral mucosa moist. NECK: No JVD. No neck masses. CARDIOVASCULAR: S1 and S2 heard. Regular rate and rhythm. No murmur, no gallop. RESPIRATORY SYSTEM: Normal AP diameter. No accessory muscle use. No wheezing, no crackles. ABDOMEN: Soft, bowel sounds present, nontender, no distention. CENTRAL NERVOUS SYSTEM: Alert and oriented. No facial droop. Extraocular muscles intact. Tongue midline. Power 5/5 in all extremities. No pronator drift. Coordination of movements normal. Sensation is intact. EXTREMITIES: Bilateral lower extremity edema present, no erythema seen. LABORATORY DATA: WBC 5.5, hemoglobin 11.8, hematocrit 35.3, platelets 243. Sodium 131, potassium 4.2, chloride 100, bicarbonate 23, BUN 18, creatinine 0.6, serum glucose 464, currently 259, magnesium 1.5, calcium 9.3, total bilirubin 0.4, AST 60, ALT 19, alkaline phosphatase 82. Troponin I high sensitivity 3. BNP 82. Lipase 49. TSH 3.4. SARS-CoV-2 negative. Chest x-ray: No acute findings. CTA of the head and neck, preliminary report: No acute findings. CT of the head, preliminary report: No acute findings. EKG: Normal sinus rhythm at a rate of 86, no significant change was found. ASSESSMENT AND PLAN: This is a 51-year-old female who presents with stroke-like symptoms. 1. Stroke-like symptoms: The patient had issues with memory, not able to remember familiar names yesterday. The patient has history of stroke in the past, on aspirin, Plavix and statin. Initial workup was negative. CTA of the head and neck unremarkable and CT of the head was unremarkable. We will follow the final reports. We will do full stroke workup with MRI scan, echocardiogram. Speech evaluation, physical therapy and occupational therapy, and neurology evaluation in the a.m. Closely monitor in the med-telemetry. We will give a dose of thiamine. 2. Chest discomfort: Troponin and EKG unremarkable. Follow the echocardiogram and repeat troponin. If any concerns will consult cardiology. 3. Questionable seizures. In 2019 when she was admitted, at that time neurology thought that she might have possible focal motor complex partial seizures and was started on Keppra b.i.d., but the patient says she never took the Keppra. We will follow the EEG. Await neurology input. 4. Insomnia: Recently started on clonidine 0.1 mg p.o. b.i.d., we will continue the medication. Monitor the blood pressure while she is on that medication. 5. Hyperlipidemia: Continue statin. 6. Diabetes: We will place on Lantus 30 units , insulin sliding scale. Follow HbA1c level, follow the blood sugars. 7. Hypertension: On metoprolol and lisinopril 2.5, we will monitor blood pressure. Recently started on clonidine. We will monitor the blood pressure. 8. History of coronary artery disease, status post stent: On aspirin, Plavix, statin and beta jenn. Follow the echocardiogram. 9. Deep venous thrombosis prophylaxis: Sequential compression devices for now. DISPOSITION: Admit to med-tele. PT/OT prior to discharge. Social service to help with discharge planning. Job ID: [id number] MTDD
--- NOTE | 2021-11-26 15:45 | Electroencephalogram ---
EEG Procedure Note Date of Service November 26, 2021 Start / End Times Start Time: 13:06 End Time: 13:[address] Clark History A 51-year-old woman referred for evaluation of memory loss. EEG performed progression of epileptiform activity. Home Medication List Medication Instructions Recorded Confirmed Type aspirin 81 mg tablet,delayed 81 mg PO QAM 05/10/18 03/31/20 History release (Aspir-) atorvastatin 80 mg tablet 80 mg PO DAILY 03/30/20 03/31/20 History bupropion HCl 150 mg tablet,12 hr 150 mg PO BID 03/30/20 03/31/20 History sustained-release clopidogrel 75 mg tablet 75 mg PO DAILY 03/30/20 03/31/20 History insulin glargine 100 unit/mL (3 30 unit SUBCUT DAILY 03/30/20 03/31/20 History mL) subcutaneous pen (Basaglar KwikPen U-100 Insulin) metformin 1,000 mg tablet 1,000 mg PO BID 03/30/20 03/31/20 History ergocalciferol (vitamin D2) 1,250 50,000 unit PO WK 03/31/20 03/31/20 History mcg (50,000 unit) capsule (Vitamin D2) insulin aspart U-100 100 unit/mL 0 unit SUBCUT AC 03/31/20 03/31/20 History (3 mL) subcutaneous pen (Novolog Flexpen U-100 Insulin aspart) levetiracetam 500 mg tablet 500 mg PO BID #60 tab 03/31/20 Rx (Keppra) metoprolol succinate 100 mg 100 mg PO BID 03/31/20 03/31/20 History tablet,extended release 24 hr Inpatient Medication List Aspirin (Aspirin 81 Mg Ectab) 81 mg PO QAM [facility] Stop: 12/26/21 08:59 Last Admin: 11/26/21 09:12 Dose: 81 mg Documented by: [id number] Atorvastatin Calcium (Atorvastatin 40 Mg Tab) 80 mg PO DAILY [facility] Stop: 12/26/21 08:59 Last Admin: 11/26/21 09:12 Dose: 80 mg Documented by: [id number] Bupropion HCl (Bupropion Sr 100 Mg Tabcr) 200 mg PO BID [facility] Stop: 12/26/21 08:59 Last Admin: 11/26/21 09:12 Dose: 200 mg Documented by: [id number] Clonidine HCl (Clonidine Hcl 0.1 Mg Tab) 0.1 mg PO BID [facility] Stop: 12/26/21 08:59 Last Admin: 11/26/21 09:12 Dose: 0.1 mg Documented by: [id number] Clopidogrel Bisulfate (Clopidogrel Bisulfate 75 Mg Tab) 75 mg PO DAILY [facility] Stop: 12/26/21 08:59 Last Admin: 11/26/21 09:13 Dose: 75 mg Documented by: [id number] Sodium Chloride (Nss 1000ml) 1,000 mls @ 100 mls/hr IV .Q10H [facility] Stop: 11/26/21 16:16 Last Infusion: 11/26/21 15:28 Dose: 0 mls/hr Documented by: [id number] Admin: 11/26/21 06:23 Dose: 100 mls/hr Documented by: [id number] Insulin Aspart (Insulin Aspart Per Unit) 0 units SC ACHS [facility] Stop: 12/26/21 07:29 Last Admin: 11/26/21 12:58 Dose: 10 units Documented by: [id number] Cosigned by: [id number] Admin: 11/26/21 09:07 Dose: 6 units Documented by: [id number] Cosigned by: [id number] Lisinopril (Lisinopril 2.5 Mg Tab) 2.5 mg PO QAM [facility] Stop: 12/26/21 08:59 Last Admin: 11/26/21 09:12 Dose: 2.5 mg Documented by: [id number] Metoprolol Succinate (Metoprolol Succ 50mg Ext Rel Tab) 100 mg PO BID [facility] Stop: 12/26/21 08:59 Last Admin: 11/26/21 09:12 Dose: 100 mg Documented by: [id number] Discontinued Medications Gadobutrol (Gadobutrol 65ml Vial) 8.5 ml IV ONCE ONE Stop: 11/26/21 08:12 Last Admin: 11/26/21 08:11 Dose: 8.5 ml Documented by: [id number] Sodium Chloride (Nss 1000ml) 1,000 mls @ 125 mls/hr IV .Q8H [facility] Stop: 12/26/21 00:44 Last Infusion: 11/26/21 07:21 Dose: 0 mls/hr Documented by: [id number] Infusion: 11/26/21 06:38 Dose: 125 mls/hr Documented by: [id number] Infusion: 11/26/21 06:25 Dose: 125 mls/hr Documented by: [id number] Admin: 11/26/21 01:26 Dose: 125 mls/hr Documented by: [id number] Magnesium Sulfate 1 gm/ Sodium (Chloride) 102 mls @ 51 mls/hr IV NOW STA Stop: 11/26/21 03:48 Last Infusion: 11/26/21 04:43 Dose: 0 mls/hr Documented by: [id number] Admin: 11/26/21 02:40 Dose: 51 mls/hr Documented by: [id number] Thiamine HCl 200 mg/ Sodium (Chloride) 52 mls @ 208 mls/hr IV NOW STA Stop: 11/26/21 05:36 Last Admin: 11/26/21 11:35 Dose: Not Given Documented by: [id number] Insulin Human Regular (Novolin-R Insulin Per Unit Charge) 8 units SC NOW STA Stop: 11/26/21 01:47 Last Admin: 11/26/21 02:37 Dose: 8 units Documented by: [id number] Cosigned by: [id number] Insulin Human Regular (Novolin-R Insulin Per Unit Charge) 8 units SC NOW STA Stop: 11/26/21 04:12 Last Admin: 11/26/21 04:29 Dose: 8 units Documented by: [id number] Cosigned by: [id number] Ioversol (Optiray 320 125ml) 119 ml IV ONCE ONE Stop: 11/26/21 02:09 Last Admin: 11/26/21 02:13 Dose: 119 ml Documented by: [id number] Description This is a 21 electrode EEG with a single channel dedicated to limited EKG. The electrodes were placed in accordance with the International 10-20 system. Interpretation Report: At the onset of the EEG the patient is awake. The background is symmetr ic and well-organized. The background predominantly consist of low amplitude beta activity with the posterior dominant rhythm of 11-12 Hz. Drowsiness is characterized by increased theta activity, reduced blink rate, and decreased myogenic artifact. Photic stimulation does not induce any abnormalities. No stage II sleep transients are seen. Clinical Correlation Impression: This is a normal awake and drowsy routine EEG. There is no evidence of epileptiform activity.
[2021-11-26] MEDS ORDERED: INSULIN GLARGINE SOLOSTAR 100 UNITS/ML 3 ML PEN SC SCH (21:00)
--- NOTE | 2021-11-26 21:55 | Electrocardiogram Report ---
Test Reason : Blood Pressure : / mmHG Vent. Rate : 086 BPM Atrial Rate : 086 BPM P-R Int : 190 ms QRS Dur : 070 ms QT Int : 394 ms P-R-T Axes : 044 000 049 degrees QTc Int : 471 ms Normal sinus rhythm Low voltage QRS Borderline ECG When compared with ECG of 30-MAR-2020 23:03, No significant change was found Confirmed by Mike Ortega ([id number]) on 11/26/2021 9:55:39 PM Referred By: REFERRED SELF Confirmed By:Mike Ortega
[2021-11-27] MEDS ORDERED: SODIUM CHLORIDE 0.9% 500 ML IV SCH (05:00)
[2021-11-27 06:44] LABS: Basophils # (auto) 0.03 K/uL (0-0.2); Basophils % (auto) 0.6 %; Eosinophils # (auto) 0.19 K/uL (0-0.5); Eosinophils % (auto) 3.5 %; Hematocrit (blood only) 34.5 % (37-47); Hemoglobin 11.6 g/dL (12.0-16.0); Immature Granulocytes # (auto) 0.01 K/uL (0.00-0.02); Immature Granulocytes % (auto) 0.2 %; Mean Corpuscular Hemoglobin 29.7 pg (25-34); Mean Corpuscular Hgb Conc 33.6 g/dL (32-36); Mean Corpuscular Volume 88.5 fL (80-100); Mean Platelet Volume 9.5 fL (7.4-10.4); Monocytes # (auto) 0.35 K/uL (0.11-0.59); Monocytes % (auto) 6.5 %; Neutrophils # (auto) 2.71 K/uL (1.4-6.5); Neutrophils % (auto) 50.2 %; Platelet Count 232 K/uL (130-400); RDW Coefficient of Variation 12.9 % (11.5-14.5); RDW Standard Deviation 41.3 fL (36.4-46.3); White Blood Count 5.39 K/uL (4.8-10.8)
[2021-11-27 07:11] LABS: BUN Creatinine Ratio 29.5 (10-20); Calcium 8.6 mg/dl (8.5-10.1); Chol HDL Ratio 4.2 (0-5); Creatinine Clr Calc Pharmacy 161.6 ml/min; Est GFR (African American) 134.5 ml/min; Est GFR (Non-African American) 116.1 ml/min; Potassium 3.7 mmol/L (3.5-5.1)
[2021-11-27 07:49] LABS: Estimated Average Glucose 352 mg/dl; Hemoglobin A1C 13.9 % (4.5-5.6)
[2021-11-27] MEDS: buPROPion SR 100 MG TABCR PO SCH (07:59)
[2021-11-27] MEDS: METOPROLOL SUCC 50MG EXT REL TAB PO SCH (08:00)
[2021-11-27] MEDS: cloNIDine HCL 0.1 MG TAB PO SCH (08:00)
[2021-11-27] MEDS: lisinopril 2.5 MG TAB PO SCH ×2 (08:01→11:54)
[2021-11-27] MEDS: ATORVASTATIN 40 MG TAB PO SCH (08:01)
[2021-11-27] MEDS: CLOPIDOGREL BISULFATE 75 MG TAB PO SCH (08:01)
[2021-11-27] MEDS: ASPIRIN 81 MG ECTAB PO SCH (08:01)
[2021-11-27] MEDS: INSULIN ASPART PER UNIT SC SCH ×2 (08:44→12:41)
[2021-11-27] MEDS ORDERED: cloNIDine HCL 0.1 MG TAB PO SCH (09:00)
--- NOTE | 2021-11-27 11:46 | Hospitalist Progress Note ---
Date of Service November 27, 2021 Assessment & Plan (1) Confusion and disorientation: Plan: Admitted with acute confusion and disorientation and is suspected to have TIA- like symptoms No evidence of TIA and/or stroke Relevant investigation including MRI of the head, neck and head CTA and echo were unremarkable Confusion and disorientation have resolved Appreciate neuro input and recommendation Negative EEG for any suspected seizures She has been ambulating in the room without any difficulties She has had the physical therapy as well She will be discharged home this afternoon (2) CAD (coronary artery disease): Plan: CAD with prior stent placement No acute cardiac symptoms (3) Hyperglycemia due to type 2 diabetes mellitus: Plan: Has been on insulin and metformin Blood sugar remains stable Hemoglobin A1c is very high at 13.9 Strongly advised to keep appointment with her primary care physician (4) CVA (cerebral vascular accident): Plan: Already has been on Plavix and aspirin No evidence of any TIA and/or stroke and no seizures (5) Hypertension: Plan: Blood pressure is maintained on the lower side at 96/54 without any symptoms We will continue current medicines for the blood pressure Reduce the dose of clonidine to 0.1 mg at night only to control menopausal symptoms mainly DVT prophylaxis SCDs CODE STATUS Full Admission and Anticipated Discharge Date Admission Date: November 26, 2021 Subjective 11/27/2021 The patient was seen and examined in medical telemetry unit She has been feeling much better and denies any significant symptoms Her blood pressure was noted to be in the lower side at 96/54 but she has been ambulating well in the room without any symptoms Her leg swelling seems to be little better She wants to go home today Review of Systems Review of Systems: All systems reviewed and are unremarkable except as noted below Cardiovascular: Additional Comments: No dizziness and/or palpitation Musculoskeletal: No acute arthritis in any joint Physical Exam Physical Exam: Lying in bed comfortably Constitutional: well developed, well nourished and + obese; not ill appearing Eyes: PERRL, conjunctivae normal, anicteric sclerae ENMT: external ear and nose normal, oropharynx normal Neck: trachea midline, no thyromegaly Respiratory: no respiratory distress Auscultation: lungs clear to auscultation bilaterally Cardiovascular: Rate/Rhythm: regular rate and regular rhythm; not tachycardic Heart Sounds: normal S1 and normal S2; no murmur Extremities: + edema (Trace edema in ankles) Gastrointestinal (Abdomen): Inspection/Auscultation: normal bowel sounds; abdomen not distended Percussion/Palpation: abdomen soft; abdomen nontender Musculoskeletal: No acute arthritis in any joint Neurologic: Alert, awake and oriented x3. No focal sensory or no motor deficit appreciated Psychiatric: A+Ox3, euthymic affect Lymphatic: no cervical or axillary lymphadenopathy Results & Data Results & Data ([facility]) Vital Signs (Past 12 Hours) Vital Signs Temp Pulse Pulse Resp BP BP Pulse Ox 11/27/21 09:45 69 11/27/21 06:43 36.4 C L 64 18 96/54 L 98 11/27/21 04:55 95/57 L 11/27/21 04:18 36.7 C 71 18 90/50 L 98 11/27/21 01:25 75 11/26/21 23:36 36.7 C 74 18 101/65 97 Laboratory Results Short CBC 11/27/21 Range/Units 06:09 WBC 5.39 (4.8-10.8) K/uL Hgb 11.6 L (12.0-16.0) g/dL Hct 34.5 L (37-47) % Plt Count 232 (130-400) K/uL BMP 11/27/21 06:09 Sodium 138 Potassium 3.7 Chloride 111 H Carbon Dioxide 21 BUN 13 Creatinine 0.44 L Glucose 159 H Calcium 8.6 Medications Administered Current Inpatient Medications Acetaminophen (Acetaminophen 325 Mg Tab) 650 mg PO Q4H PRN PRN Reason: Pain or Fever Stop: 12/26/21 06:16 Aspirin (Aspirin 81 Mg Ectab) 81 mg PO QAM [facility] Stop: 12/26/21 08:59 Last Admin: 11/27/21 08:01 Dose: 81 mg Documented by: Atorvastatin Calcium (Atorvastatin 40 Mg Tab) 80 mg PO DAILY [place] Stop: 12/26/21 08:59 Last Admin: 11/27/21 08:01 Dose: 80 mg Documented by: Bupropion HCl (Bupropion Sr 100 Mg Tabcr) 200 mg PO BID [place] Stop: 12/26/21 08:59 Last Admin: 11/27/21 07:59 Dose: 200 mg Documented by: Clonidine HCl (Clonidine Hcl 0.1 Mg Tab) 0.05 mg PO BID [facility] Stop: 12/27/21 08:59 Last Admin: 11/27/21 10:42 Dose: Not Given Documented by: Clopidogrel Bisulfate (Clopidogrel Bisulfate 75 Mg Tab) 75 mg PO DAILY [facility] Stop: 12/26/21 08:59 Last Admin: 11/27/21 08:01 Dose: 75 mg Documented by: Insulin Aspart (Insulin Aspart Per Unit) 0 units SC ACHS [facility] Stop: 12/26/21 07:29 Last Admin: 11/27/21 08:44 Dose: 6 units Documented by: Insulin Glargine (Insulin Glargine Solostar 100 Units/Ml 3 Ml Pen) 30 units SC HS [facility] Stop: 12/26/21 20:59 Last Admin: 11/26/21 20:54 Dose: 30 units Documented by: Lisinopril (Lisinopril 2.5 Mg Tab) 2.5 mg PO QAM [facility] Stop: 12/26/21 08:59 Last Admin: 11/27/21 08:01 Dose: Not Given Documented by: Metoprolol Succinate (Metoprolol Succ 50mg Ext Rel Tab) 100 mg PO BID [facility] Stop: 12/26/21 08:59 Last Admin: 11/27/21 08:00 Dose: Not Given Documented by: Miscellaneous Information (Pharmacist Discharge Med Rec Consult) 1 ea N/A UD PRN PRN Reason: Consult Stop: 12/26/21 06:16 Nitroglycerin (Nitroglycerin Sl 0.4 Mg/Tab Tab) 0.4 mg SL UD PRN PRN Reason: Chest Pain Stop: 12/26/21 06:16 Ondansetron HCl (Ondansetron Inj 2 Mg/Ml 2 Ml Vial) 4 mg IV Q6H PRN PRN Reason: Nausea Stop: 12/26/21 06:16 Polyethylene Glycol (Polyethylene (Miralax) 17 Gm Pack) 17 gm PO DAILY PRN PRN Reason: Constipation Stop: 12/26/21 06:16 (1) Hyperglycemia due to type 2 diabetes mellitus Diabetes mellitus medical terminologist insulin use: with long-term use Qualified Code(s): E11.65 - Type 2 diabetes mellitus with hyperglycemia; Z79.4 - senior care (current) use of insulin
--- NOTE | 2021-11-27 17:23 | Discharge Summary ---
Date of Service November 27, 2021 Admission HPI Per Admitting Provider DICTATED BY:Earl Butts MD DATE OF ADMISSION: 11/26/2021. CHIEF COMPLAINT: Stroke-like symptoms, lower extremity edema. HISTORY OF PRESENT ILLNESS: A 51-year-old female with past medical history significant for type 2 diabetes, hyperlipidemia, history of right CVA, history of CAD, status post stent, history of tobacco abuse, vitamin D deficiency, presents with stroke-like symptoms. The patient says yesterday while she was at work, she was not remembering the names, which she is familiar with and when she came home, she noticed some swelling in the lower extremity and decided to come to the hospital. Recently, her family doctor increased Wellbutrin dose from 150 to 200 mg p.o. b.i.d. and also clonidine 0.1 mg p.o. b.i.d. was added because of insomnia and hot flashes. She was feeling dizziness for the last couple of days, has some chest pressure. She has chronic shortness of breath. Denies any headache. Has some mild dizziness, no blurred visions, has some runny nose. No sore throat, no cough, no difficulty swallowing. Appetite is okay. Was nauseous earlier while she was coming to the hospital. No abdominal pain. Normal bowel and bladder movements. Denies any blood in stool or black stools. Ambulating okay and climbing steps okay. Hemodynamically stable. Admission Exam Per Admitting Provider GENERAL: The patient is obese, not in acute distress. VITAL SIGNS: Temperature 36.9, pulse 73, respiratory rate 16, blood pressure 130/81, oxygen 99% on room air. HEENT: Pupils equal, round and reactive to light. Extraocular muscles intact. Oral mucosa moist. NECK: No JVD. No neck masses. CARDIOVASCULAR: S1 and S2 heard. Regular rate and rhythm. No murmur, no gallop. RESPIRATORY SYSTEM: Normal AP diameter. No accessory muscle use. No wheezing, no crackles. ABDOMEN: Soft, bowel sounds present, nontender, no distention. CENTRAL NERVOUS SYSTEM: Alert and oriented. No facial droop. Extraocular muscles intact. Tongue midline. Power 5/5 in all extremities. No pronator drift. Coordination of movements normal. Sensation is intact. EXTREMITIES: Bilateral lower extremity edema present, no erythema seen. Principal Diagnosis Confusion and disorientation-resolved, no stroke and/or TIA, uncontrolled type 2 diabetes, hypertension, CAD Discharge Exam Lying in bed comfortably Constitutional well developed, well nourished and + obese; not ill appearing Eyes PERRL, conjunctivae normal, anicteric sclerae ENMT external ear and nose normal, oropharynx normal Neck trachea midline, no thyromegaly Respiratory no respiratory distress Auscultation: lungs clear to auscultation bilaterally Cardiovascular Rate/Rhythm: regular rate and regular rhythm; not tachycardic Heart Sounds: normal S1 and normal S2; no murmur Extremities: + edema (Trace edema in ankles) Gastrointestinal (Abdomen) Inspection/Auscultation: normal bowel sounds; abdomen not distended Percussion/Palpation: abdomen soft; abdomen nontender Psychiatric A+Ox3, euthymic affect Lymphatic no cervical or axillary lymphadenopathy Discharge Data Allergies Allergy/AdvReac Type Severity Reaction Status Date / Time bee venom protein (honey bee) Allergy Severe swelling Verified 03/31/20 00:13 and difficulty breathing Penicillins Allergy Intermediate RASH Verified 03/31/20 00:13 Consultations 11/26/21 04:34 ED Decision to Admit Stat 11/26/21 08:00 Consult Neurology Routine Ordered Studies 11/26/21 00:34 CT angio head w con Urgent CT angio neck with con Urgent CT head/brain wo con Urgent 11/26/21 06:17 MR brain wo/w con Urgent Hospital Course (1) Confusion and disorientation: Admitted with acute confusion and disorientation and is suspected to have TIA-like symptoms No evidence of TIA and/or stroke Relevant investigation including MRI of the head, neck and head CTA and echo were unremarkable Confusion and disorientation have resolved Appreciate neuro input and recommendation Negative EEG for any suspected seizures She has been ambulating in the room without any difficulties She has had the physical therapy as well She will be discharged home this afternoon (2) CAD (coronary artery disease): CAD with prior stent placement No acute cardiac symptoms (3) Hyperglycemia due to type 2 diabetes mellitus: Has been on insulin and metformin Blood sugar remains stable Hemoglobin A1c is very high at 13.9 Strongly advised to keep appointment with her primary care physician (4) CVA (cerebral vascular accident): Already has been on Plavix and aspirin No evidence of any TIA and/or stroke and no seizures (5) Hypertension: Blood pressure is maintained on the lower side at 96/54 without any symptoms We will continue current medicines for the blood pressure Reduce the dose of clonidine to 0.1 mg at night only to control menopausal symptoms mainly DVT prophylaxis SCDs CODE STATUS Full Total Time Total Time Spent Total Time Spent (In Minutes): 35 minutes Discharge Plan Discharge Items Patient Disposition: Home - Self-Care Reason For Visit: STROKE LIKE SYMPTOMS, LOWER EXT EDEMA Discharge Diagnosis: Confusion and disorientation-resolved, no stroke and/or TIA, uncontrolled type 2 diabetes, hypertension, CAD Condition on Discharge: Fair Activity: Resume your previous activity Non-emergency contact: Primary Care Provider Call non-emergency contact if: you have any medication questions and your symptoms worsen Follow-up/Referrals: Maliha Whitaker PA-C [Primary Care Provider] - (Date & Time 12/01/2021 11:00 AM Provider Trisha Starkey MD [facility] ) Diet: Carb Consistent or DM2 Addtl Attending Provider Instructions: Please take precautions to avoid fall No change in your current medications except take clonidine only at nighttime Please give a record of your blood sugar and take it to your primary care provider during the follow-up as scheduled Try to keep your feet elevated over a pillow during sleep Pending Studies at Discharge: No Stand-Alone Forms: [employer], Smoking Cessation Medications and DC Order Prescriptions: New clonidine HCl 0.1 mg tablet 0.1 mg PO HS Qty: 1 RF: 0 lisinopril 2.5 mg tablet 2.5 mg PO DAILY Qty: 1 RF: 0 Continued aspirin [Aspir-81] 81 mg Tablet,Delayed Release (Dr/Ec) 81 mg PO QAM RF: 0 bupropion HCl 150 mg tablet sustained-release 12 hr 150 mg PO BID RF: 0 atorvastatin 80 mg tablet 80 mg PO DAILY RF: 0 metformin 1,000 mg tablet 1,000 mg PO BID RF: 0 clopidogrel 75 mg tablet 75 mg PO DAILY RF: 0 Basaglar KwikPen U-100 Insulin 100 unit/mL (3 mL) insulin pen 30 unit SUBCUT DAILY RF: 0 metoprolol succinate 100 mg tablet extended release 24 hr 100 mg PO BID RF: 0 ergocalciferol (vitamin D2) [Vitamin D2] 1,250 mcg (50,000 unit) capsule 50,000 unit PO WK RF: 0 insulin aspart U-100 [Novolog Flexpen U-100 Insulin] 100 unit/mL (3 mL) insulin pen 0 unit SUBCUT AC RF: 0 levetiracetam [Keppra] 500 mg tablet 500 mg PO BID Qty: 60 RF: 1 Discharge Orders: Discharge Order (Routine); Ordered 11/27/21 Ordered By: Subhash Clark Admission Data Admit Date/Time: 11/26/21 05:35 Attending Provider: Subhash Clark Admit Provider: Earl Butts Primary Care Provider: Maliha Whitaker Other Providers: Earl Butts ; Sherrie Sherman Other Interventions: Discharge Summary Assessment (RN) Last Done: 11/27/21 13:22
== END 2021-11-27 14:24 | disposition home or self-care (01) ==
LOC: 2N 00:06 → ED 00:06 → 2N 06:03
DX: Z79.899 Other long term (current) drug therapy; Z79.4 Long term (current) use of insulin; Z95.5 Presence of coronary angioplasty implant and graft; Z79.84 Long term (current) use of oral hypoglycemic drugs; Z79.82 Long term (current) use of aspirin; I63.9 Cerebral infarction, unspecified; I10 Essential (primary) hypertension; E78.5 Hyperlipidemia, unspecified; R41.0 Disorientation, unspecified; R22.43 Localized swelling, mass and lump, lower limb, bilateral; Z88.0 Allergy status to penicillin; E11.65 Type 2 diabetes mellitus with hyperglycemia; Z91.030 Bee allergy status; I25.10 Atherosclerotic heart disease of native coronary artery without angina pectoris